=== PATIENT | male | born 1995 | race Caucasian/White ===

== ENCOUNTER 2020-01-19 03:59 | Emergency (ER) | payer MEDICAID, SELFPAY ==
[2020-01-19 04:03] VITALS: BP 141/91; PULSE 76; RESP 16; TEMP 36.7; O2SAT 100; BMI 22.1
--- NOTE | 2020-01-19 04:33 | CTR_ITS ---
PROCEDURE INFORMATION: Exam: CT Head Without Contrast Exam date and time: 01/19/2020 5:05 AM Age: 24 years old Clinical indication: Numbness / parasthesia; Patient HX: Numbness to left arm and leg after taking meth per patient; Additional info: Weakness TECHNIQUE: Imaging protocol: Computed tomography of the head without contrast. Radiation optimization: All CT scans at this facility use at least one of these dose optimization techniques: automated exposure control; mA and/or kV adjustment per patient size (includes targeted exams where dose is matched to clinical indication); or iterative reconstruction. COMPARISON: CT head wo con* [id number] 05/28/2018 1:35 PM RADIATION DOSE METRICS: Total DLP (mGy-cm): 774.54 FINDINGS: Brain: Normal. No hemorrhage. Unremarkable white matter. No mass effect. Cerebral ventricles: No ventriculomegaly. Bones/joints: Unremarkable. No acute fracture. Paranasal sinuses: There is mild mucosal thickening seen within the ethmoidal sinuses. Mastoid air cells: Visualized mastoid air cells are well aerated. Soft tissues: Unremarkable. CT/CT head wo con* [id number] IMPRESSION: There are no acute intracranial findings. Radiation Dose CTDIVOL = (mGy): DLP = 774.54 (mGy-cm)
--- NOTE | 2020-01-19 04:34 | ECG_ITS ---
[facility] Test Date: 2020-01-19 Pat Name: Mario Alberto Figueroa Jr Department: Room: Gender: Male Physician Neonatology: : 1995 Requested By: Jt Romo Order Number: [id number] Brent MD: Darshan Evangelista M.D. Measurements Intervals [place] Rate: 82 P: 64 [place]: 162 QRS: 51 QRSD: 121 T: 42 QT: 364 QTc: 427 Interpretive Statements SINUS RHYTHM WITH SINUS ARRHYTHMIA INDETERMINATE AXIS RIGHT BUNDLE BRANCH BLOCK [120+ ms QRS DURATION, UPRIGHT V1, 40+ ms S IN I/aVL/V4/V5/V6] No previous ECG available for comparison Electronically Signed On 01-19-2020 19:45:47 CDT by Darshan Evangelista M.D. [email or web address] medical centerNEXTA [email or web address] hard[facility].Myoonet/store/NU/[id number] f
[2020-01-19 04:40] VITALS: BP 144/86; PULSE 76; RESP 18; O2SAT 100
[2020-01-19 04:40] LABS: Basophils # 0.1 10^3/uL (0.0-0.1); Basophils % 0.9 %; Eosinophils # 0.3 10^3/uL (0.0-0.8); Eosinophils % 3.3 %; Hematocrit 43.4 % (42.0-52.0); Hemoglobin 14.8 g/dL (11.7-16.6); Lymphocytes # 2.5 10^3/uL (0.8-4.8); Lymphocytes % 25.9 %; Mean Corpuscular HGB Conc 34.1 g/dL (30.0-36.0); Mean Corpuscular Hemoglobin 29.5 pg (28.0-34.0); Mean Corpuscular Volume 86.5 fL (80-94); Mean Platelet Volume 9.7 fL (7.4-10.4); Monocytes # 0.6 10^3/uL (0.2-0.9); Monocytes % 6.2 %; Neutrophils % 63.4 %; Nucleated Red Blood Cells % 0 %; Platelet Count 344 10^3/cmm (130-400); Red Blood Count 5.02 10^6/uL (4.1-5.3); Red Cell Distribution Width 12.8 % (12.1-15.1); White Blood Count 9.6 10^3/uL (4.0-10.0)
[2020-01-19] MEDS: sodium chloride 0.9% 1,000 ML 999 ML IV (04:45)
[2020-01-19 05:01] LABS: Alanine Aminotransferase 24 U/L (0-41); Albumin Level 4.9 g/dL (3.5-5.2); Alkaline Phosphatase 90 IU/L (40-130); Blood Urea Nitrogen 12 mg/dL (6-20); Calcium 10.4 mg/dL (8.5-10.5); Carbon Dioxide 25 mmol/L (22-29); Chloride 98 mmol/L (98-107); Creatine Phosphokinase 209 U/L (39-308); Globulin 2.5 g/dL (1.3-4.6); Glomerular Filtration Rate 120.9 mL/min (90-130); Glucose 106 mg/dL (65-115); Osmolality Calculated 282 mOsm/kg (285-295); Sodium 136 mmol/L (136-145); Total Bilirubin 0.4 mg/dL (0.15-1.2); Total Protein 7.4 g/dL (6.6-8.7)
[2020-01-19 05:04] LABS: Add Urine Microscopic? NO
--- NOTE | 2020-01-19 05:07 | ED_ITS ---
HPI - Neuro Symptoms/Deficit General: Chief Complaint: Neuro Symptoms/Deficit Stated Complaint: L SIDED NUMBNESS AFTER USING METH Time Seen by Provider: 01/19/20 04:02 History of Present Illness: HPI Narrative: 24-year-old male. Previously healthy. Says that he is homeless, and did some meth yesterday off the street. He smoked it. He says a couple of hours prior to arrival he began to develop numbness and weakness to the left side of his body. He has a mild headache. No visual changes. The numbness exists in his face left arm and left leg. So does the weakness. His right side is not affected. He also asks for food and water. His other ingestion. He denies fever recent illness otherwise. He says he has had some chest pressure as well. No speech problems. No language problems Onset (ago): hour(s) Location: left face, left arm and left leg History of same: No Severity: moderate Quality: weak, numb and tingling Relieving factors: none Exacerbating factors: none Context: gradual onset On Anticoagulants: No Associated symptoms: Reports chest pain and headache(s); Deny cough, nausea, vertigo or vomiting Review of Systems Const: Denies: fever(s) or chills Eyes: Denies: change in vision or blurry vision ENMT: Denies: odynophagia, swelling of lips/tongue, bleeding gums, dental pain, change in hearing, epistaxis, post nasal drip or sinus pain Card: Reports: chest pain Resp: Denies: dyspnea, productive cough, non-productive cough or wheezing GI: Denies: abdominal pain, nausea, vomiting, rectal pain, hematochezia or melena : Denies: difficulty urinating or hematuria Musc: Denies: neck pain or back pain Skin/Breast: Denies: rash, pruritus or erythema Neuro: Reports: headache(s) and dizziness; Denies: vertigo Psych: Denies: anxiety, visual hallucinations or auditory hallucinations Physical Exam Const: GENERAL APPEARANCE: well developed ORIENTATION/CONSCIOUSNESS: Yes oriented to person, Yes oriented to place and Yes oriented to time HENMT: COMMON NORMALS: normocephalic, external ears normal and Normal external nose present HEAD & SCALP: normocephalic FACE & SINUS: normal facial exam NOSE: Normal external nose present and No nasal discharge present EXTERNAL EAR: Yes external ears normal THROAT: no peritonsillar mass Eye: COMMON NORMALS: EOMs intact bilaterally and conjunctivae normal EYELID: eyelids normal CONJUNCTIVA: Yes conjunctivae normal Neck/C-Spine: GENERAL: No tracheal deviation Chest: COMMONS NORMALS: normal inspection of the chest CHEST: No tenderness Resp: COMMON NORMALS: clear to auscultation bilaterally EFFORT & INSPECTION: No tachypneic, No respiratory distress, No retractions, No uses accessory muscles and No tracheal deviation AUSCULTATION: clear to auscultation bilaterally, no rhonchi, no wheezes and lung sounds not diminished Cardio: COMMON NORMALS: regular rate and regular rhythm RATE: regular rate RHYTHM: regular rhythm HEART SOUNDS: no murmurs PERIPHERAL PULSES: radial pulses present GI: INSPECTION: No abdominal distension AUSCULTATION: No Hyperactive bowel sounds present and No Hypoactive bowel sounds present PALPATION: No Guarding due to palpation present (GI) and No Rigid due to palpation PERCUSSION: no dullness to percussion and no tympanic to percussion Neuro: SENSORIUM/ORIENTATION: Yes oriented to person, Yes oriented to place and Yes oriented to time SPEECH: speech normal GAIT: Yes Unable to assess gait SENSORY EXAM: Yes extremities (Subjective decreased sensation on the left upper and lower extremity) MOTOR EXAM: Pronator motor function present (Hands and pronator drift on the left. Seems to improve and worsen) Psych: COMMON NORMALS: mental status grossly normal Skin: COMMON NORMALS: no rashes or lesions noted GENERAL SKIN EXAM: no rashes or lesions noted Course Vital Signs: Vital signs: Vital Signs Temperature 98.0 F 01/19/20 04:03 Pulse Rate 75 01/19/20 06:22 Respiratory Rate 18 01/19/20 06:22 Blood Pressure 114/72 01/19/20 06:22 Pulse Oximetry 95 01/19/20 06:22 MDM - Neuro Symptoms/Deficit MDM Narrative: Medical decision making narrative: 24-year-old male who smoked meth yesterday afternoon, and has complained of several hours of weakness and numbness to the left side of his body. He has been witnessed moving his left side in the ER, especially in CT. His laboratory is otherwise benign. His head CT is negative. He is afebrile. His vitals are good. Lab Data: Labs: Lab Results 01/19/20 01/19/20 01/19/20 Range/Units 04:16 04:16 04:16 WBC 9.6 (4.0-10.0) 10^3/ uL RBC 5.02 (4.1-5.3) 10^6/u L Hgb 14.8 (11.7-16.6) g/dL Hct 43.4 (42.0-52.0) % MCV 86.5 (80-94) fL MCH 29.5 (28.0-34.0) pg MCHC 34.1 (30.0-36.0) g/dL RDW 12.8 (12.1-15.1) % Plt Count 344 (130-400) 10^3/c mm MPV 9.7 (7.4-10.4) fL Neut % (Auto) 63.4 % Lymph % (Auto) 25.9 % [place] % (Auto) 6.2 % Eos % (Auto) 3.3 % Baso % (Auto) 0.9 % Neut # (Auto) 6.10 (1.8-7.7) 10^3/u L Lymph # (Auto) 2.5 (0.8-4.8) 10^3/u L [place] # (Auto) 0.6 (0.2-0.9) 10^3/u L Eos # (Auto) 0.3 (0.0-0.8) 10^3/u L Baso # (Auto) 0.1 (0.0-0.1) 10^3/u L Nucleated RBC % (a uto) 0 % Nucleated RBCs # 0.0 /100WBC PT Cancelled INR Cancelled APTT Cancelled Sodium 136 (136-145) mmol/L Potassium 4.1 (3.5-5.1) mmol/L Chloride 98 (98-107) mmol/L Carbon Dioxide 25 (22-29) mmol/L Anion Gap 17.1 (5-19) BUN 12 (6-20) mg/dL Creatinine 0.8 (0.7-1.2) mg/dL GFR Calculation 120.9 (90-130) mL/min Glucose 106 (65-115) mg/dL Calculated Osmolal ity 282 L (285-295) mOsm/k g Calcium 10.4 (8.5-10.5) mg/dL Magnesium 2.0 (1.7-2.3) mg/dL Total Bilirubin 0.4 (0.15-1.2) mg/dL AST 28 (0-40) U/L ALT 24 (0-41) U/L Alkaline Phosphata se 90 (40-130) IU/L Creatine Kinase 209 (39-308) U/L Total Protein 7.4 (6.6-8.7) g/dL Albumin 4.9 (3.5-5.2) g/dL Globulin 2.5 (1.3-4.6) g/dL Urine Color (Yellow) Urine Appearance (CLEAR) Urine pH (5-7) Ur Specific Gravit y (1.005-1.030) Urine Protein (Negative) Urine Glucose (UA) (Normal) Urine Ketones (Negative) Urine Blood (Negative) Urine Nitrate (Negative) Urine Bilirubin (Negative) Prot Sulfosalicyli c Acd (Negative) Urine Urobilinogen (Negative) mg/dL Ur Leukocyte Yudith ase (Negative) Urine Opiates Scre en (Negative) ng/mL Ur Barbiturates Sc reen (Negative) ng/mL Ur Phencyclidine S crn (Negative) ng/mL Ur Amphetamines Sc reen (Negative) ng/mL U Benzodiazepines Scrn (Negative) ng/mL Urine Cocaine Scre en (Negative) ng/mL U Marijuana (THC) Screen (Negative) ng/mL Ethyl Alcohol < 10 (0-10) mg/dL 01/19/20 01/19/20 01/19/20 Range/Units 04:16 04:16 05:00 WBC (4.0-10.0) 10^3/ uL RBC (4.1-5.3) 10^6/u L Hgb (11.7-16.6) g/dL Hct (42.0-52.0) % MCV (80-94) fL MCH (28.0-34.0) pg MCHC (30.0-36.0) g/dL RDW (12.1-15.1) % Plt Count (130-400) 10^3/c mm MPV (7.4-10.4) fL Neut % (Auto) % Lymph % (Auto) % [place] % (Auto) % Eos % (Auto) % Baso % (Auto) % Neut # (Auto) (1.8-7.7) 10^3/u L Lymph # (Auto) (0.8-4.8) 10^3/u L [place] # (Auto) (0.2-0.9) 10^3/u L Eos # (Auto) (0.0-0.8) 10^3/u L Baso # (Auto) (0.0-0.1) 10^3/u L Nucleated RBC % (a uto) % Nucleated RBCs # /100WBC PT 13.10 INR 0.97 APTT 31.1 Sodium (136-145) mmol/L Potassium (3.5-5.1) mmol/L Chloride (98-107) mmol/L Carbon Dioxide (22-29) mmol/L Anion Gap (5-19) BUN (6-20) mg/dL Creatinine (0.7-1.2) mg/dL GFR Calculation (90-130) mL/min Glucose (65-115) mg/dL Calculated Osmolal ity (285-295) mOsm/k g Calcium (8.5-10.5) mg/dL Magnesium (1.7-2.3) mg/dL Total Bilirubin (0.15-1.2) mg/dL AST (0-40) U/L ALT (0-41) U/L Alkaline Phosphata se (40-130) IU/L Creatine Kinase (39-308) U/L Total Protein (6.6-8.7) g/dL Albumin (3.5-5.2) g/dL Globulin (1.3-4.6) g/dL Urine Color Yellow (Yellow) Urine Appearance Clear (CLEAR) Urine pH 8 H (5-7) Ur Specific Gravit y 1.005 (1.005-1.030) Urine Protein Neg (Negative) Urine Glucose (UA) Norm (Normal) Urine Ketones Negative (Negative) Urine Blood Neg (Negative) Urine Nitrate Negative (Negative) Urine Bilirubin Neg (Negative) Prot Sulfosalicyli c Acd Negative (Negative) Urine Urobilinogen Norm (Negative) mg/dL Ur Leukocyte Yudith ase Negative (Negative) Urine Opiates Scre en Negative (Negative) ng/mL Ur Barbiturates Sc reen Negative (Negative) ng/mL Ur Phencyclidine S crn Negative (Negative) ng/mL Ur Amphetamines Sc reen Positive H (Negative) ng/mL U Benzodiazepines Scrn Negative (Negative) ng/mL Urine Cocaine Scre en Negative (Negative) ng/mL U Marijuana (THC) Screen Negative (Negative) ng/mL Ethyl Alcohol (0-10) mg/dL Discharge Plan Discharge Patient Disposition: Home Clinical Impression: Weakness, Substance abuse Condition: Stable Prescriptions: No Action No Known Home Medications RF: 0 Discharge Orders: Discharge Order (Routine); Ordered 01/19/20 Ordered By: Jt Del Castillo Discharge Diet: Advance as tolerated Discharge Activity: Increase activity as tolerated Patient Instructions: Methamphetamine Abuse (ED), Weakness (ED) Activity Restrictions/Additional Instructions: Abstain from substance abuse. Drink plenty of fluids. Return for worsening symptoms such as headache, mental status changes, worsening weakness, fever, other concerning symptoms Discharge Date/Time: 01/19/20 06:37 Coding Level of Care Code ED Residential Concierge for Farideh Fwd Exam Comprehensive
[2020-01-19 05:09] LABS: Alcohol Level < 10 mg/dL (0-10); Anion Gap 17.1 (5-19); Aspartate Amino Transferase 28 U/L (0-40); Potassium 4.1 mmol/L (3.5-5.1)
[2020-01-19 05:18] LABS: Amphetamines Screen Urine Positive (Negative); Barbiturates Screen Urine Negative (Negative); Benzodiazepines Screen Urine Negative (Negative); Cocaine Screen Urine Negative (Negative); Opiate Screen Urine Negative (Negative); PCP Screen Urine Negative (Negative); THC Screen Urine Negative (Negative)
[2020-01-19 05:30] LABS: INR 0.97 (0.8-1.2)
[2020-01-19 05:31] LABS: Partial Thromboplastin Time 31.1 SECONDS (23.9-36.7)
[2020-01-19 05:31] LABS: Bilirubin Urine Neg (Negative); Blood Urine Neg (Negative); Glucose Urine UA Norm (Normal); Ketones Urine Negative (Negative); Leukocyte Esterase Urine Negative (Negative); Nitrate Urine Negative (Negative); Protein Urine Neg (Negative); Specific Gravity, Urine 1.005 (1.005-1.030); Sulfosalicylic Acid Urine Negative (Negative); Urine Appearance Clear (CLEAR); Urine Color Yellow (Yellow); Urobilinogen Urine Norm (Negative); pH Urine 8 (5-7)
[2020-01-19 06:22] VITALS: BP 114/72; PULSE 75; RESP 18; O2SAT 95
== END 2020-01-19 06:37 | disposition home or self-care (01) ==
PROVIDERS: Emergency Provider Emergency Medicine
DX: R53.1 Weakness (principal); F15.10 Other stimulant abuse, uncomplicated
CPT/HCPCS: 12345; 70450; 80053; 80306; 80307; 81003; 82550; 83735; 85025; 85610; 85730; 93005; 96360; 99283; J7030

== ENCOUNTER 2020-01-24 04:38 | Emergency (ER) | payer MEDICAID, SELFPAY ==
--- NOTE | 2020-01-24 04:41 | XRR_ITS ---
PROCEDURE INFORMATION: Exam: XR Chest, 1 View Exam date and time: 01/24/2020 4:49 AM Age: 24 years old Clinical indication: Shortness of breath; Additional info: SOB, chest pain x 2 hours TECHNIQUE: Imaging protocol: XR of the chest Views: 1 view. COMPARISON: CR Chest 2 views* [id number] 05/24/2018 8:54 PM FINDINGS: Lungs: Unremarkable. No consolidation. Pleural space: Unremarkable. No pleural effusion. No pneumothorax. Heart/Mediastinum: Unremarkable. No cardiomegaly. Bones/joints: Unremarkable. XR/XR chest 1V portable [id number] IMPRESSION: No acute findings.
--- NOTE | 2020-01-24 04:42 | ECG_ITS ---
[facility] Test Date: 2020-01-24 Pat Name: Mario Alberto Figueroa Jr Department: Room: Gender: Male Hydramatic Specialist: : 1995 Requested By: Markus Tirado Order Number: [id number] Brent MD: Darshan Evangelista M.D. Measurements Intervals [place] Rate: 84 P: 72 [place]: 143 QRS: 16 QRSD: 102 T: 42 QT: 359 QTc: 427 Interpretive Statements SINUS RHYTHM WITH SINUS ARRHYTHMIA Compared to ECG 01/19/2020 04:17:00 Indeterminate axis no longer present Right bundle-branch block no longer present Electronically Signed On 01-24-2020 20:28:18 CDT by Darshan Evangelista M.D. [email or web address]/[id number] f
--- NOTE | 2020-01-24 04:43 | W.ED.CHESTPA ---
HPI - Chest Pain General: Chief Complaint: Chest Pain Stated Complaint: chest pain Time Seen by Provider: 01/24/20 04:41 Source: patient and EMS Mode of arrival: EMS Limitations: no limitations History of Present Illness: HPI narrative: Patient is a 24-year-old male is here by EMS for chest pain. He states his pain started overnight and has been a sharp pain in the center of his chest. Denies any worsening or improving factors. Denies any vomiting or diarrhea. He has had no recent long trips or surgeries. MD complaint: chest pain Onset (ago): hour(s) Timing of current episode: constant Associated symptoms: Deny abdominal pain, dyspnea, fever(s), nausea or vomiting Review of Systems Const: Denies: fever(s), chills, body aches or change in appetite Eyes: Denies: blurry vision or eye discomfort ENMT: Denies: throat pain or dental pain Card: Reports: chest pain Resp: Denies: dyspnea GI: Denies: abdominal pain, nausea, vomiting or diarrhea : Denies: dysuria Musc: Denies: neck pain or back pain Skin/Breast: Denies: rash Neuro: Denies: headache(s) Psych: Denies: depression Gianfranco/Lymph: Denies: easy bruising All/Imm: Denies: urticaria Physical Exam Const: COMMON NORMALS: no acute distress, patient oriented x3 and healthy appearing HENMT: COMMON NORMALS: normocephalic and atraumatic HEAD & SCALP: normocephalic and atraumatic Eye: COMMON NORMALS: Equal, round and reactive pupils present and EOMs intact bilaterally PUPIL: Yes Equal, round and reactive pupils present Neck/C-Spine: COMMON NORMALS: full ROM and supple Chest: COMMONS NORMALS: normal inspection of the chest and normal palpation of entire chest wall Resp: COMMON NORMALS: normal respiratory effort, No retractions, No use of accessory muscles and clear to auscultation bilaterally AUSCULTATION: clear to auscultation bilaterally Cardio: COMMON NORMALS: regular rate, regular rhythm and No murmurs present (Cardio) RATE: regular rate RHYTHM: regular rhythm GI: COMMON NORMALS: Normal to inspection, nondistended, normoactive bowel sounds present, Soft to palpation, non-tender and no masses PALPATION: Yes Soft to palpation Extremity: COMMON NORMALS: normal to inspection and full ROM Neuro: COMMON NORMALS: patient oriented x3, moves all extremities and no focal motor deficits Psych: COMMON NORMALS: mental status grossly normal, Normal thought process present and cooperative THOUGHT PROCESS: Normal thought process present Skin: COMMON NORMALS: no rashes or lesions noted and no wounds GENERAL SKIN EXAM: no rashes or lesions noted Course Vital Signs: Vital signs: Vital Signs Temperature 98.4 F 01/24/20 04:47 Pulse Rate 87 01/24/20 05:16 Respiratory Rate 20 H 01/24/20 05:16 Blood Pressure 127/74 01/24/20 05:16 Pulse Oximetry 100 01/24/20 05:16 MDM - Chest Pain MDM Narrative: Medical decision making narrative: Patient presents here with chest pain that is atypical in nature. Patient's EKG along with troponin are negative. Patient is well-appearing here and has no signs of acute coronary syndrome. Patient has no signs of pulmonary embolism. Patient is stable for discharge and is to follow-up with PCP and return if worsening. Lab Data: Labs: Lab Results 01/24/20 01/24/20 01/24/20 Range/Units 04:58 04:58 04:58 WBC 7.9 (4.0-10.0) 10^3/ uL RBC 4.81 (4.1-5.3) 10^6/u L Hgb 14.2 (11.7-16.6) g/dL Hct 42.0 (42.0-52.0) % MCV 87.3 (80-94) fL MCH 29.5 (28.0-34.0) pg MCHC 33.8 (30.0-36.0) g/dL RDW 12.8 (12.1-15.1) % Plt Count 257 (130-400) 10^3/c mm MPV 8.9 (7.4-10.4) fL Neut % (Auto) 60.4 % Lymph % (Auto) 29.4 % [place] % (Auto) 7.5 % Eos % (Auto) 1.6 % Baso % (Auto) 0.6 % Neut # (Auto) 4.77 (1.8-7.7) 10^3/u L Lymph # (Auto) 2.3 (0.8-4.8) 10^3/u L [place] # (Auto) 0.6 (0.2-0.9) 10^3/u L Eos # (Auto) 0.1 (0.0-0.8) 10^3/u L Baso # (Auto) 0.1 (0.0-0.1) 10^3/u L Nucleated RBC % (a uto) 0 % Nucleated RBCs # 0.0 /100WBC Sodium 139 (136-145) mmol/L Potassium 3.4 L (3.5-5.1) mmol/L Chloride 102 (98-107) mmol/L Carbon Dioxide 24 (22-29) mmol/L Anion Gap 16.4 (5-19) BUN 11 (6-20) mg/dL Creatinine 0.9 (0.7-1.2) mg/dL GFR Calculation 105.5 (90-130) mL/min Glucose 106 (65-115) mg/dL Calculated Osmolal ity 288 (285-295) mOsm/k g Calcium 10.0 (8.5-10.5) mg/dL Troponin T Baselin e 6 (0-15) ng/L Imaging Data^: CXR: Attestation: I personally reviewed and interpreted this imaging study as follows: My impression: no acute abnormality EKG Data^: EKG 1: EKG interpretation date: 01/24/20 EKG interpretation time: 04:46 Interpretation: nsr hr [address] or t wave abnormalities qrs 102 qtc 401 Discharge Plan Discharge Patient Disposition: Home Clinical Impression: Chest pain Qualifiers: Chest pain type: unspecified Qualified Code(s): R07.9 - Chest pain, unspecified Condition: Stable Prescriptions: No Action No Known Home Medications RF: 0 Discharge Orders: Discharge Order (Routine); Ordered 01/24/20 Ordered By: Markus Tirado Discharge Diet: Advance as tolerated Discharge Activity: Resume usual activity Patient Instructions: Chest Pain (ED) Coding Level of Care Code ED Dining Car Server for Chg Fwd Exam Comprehensive
[2020-01-24 04:47] VITALS: BP 131/82; PULSE 81; RESP 16; TEMP 36.9; O2SAT 100; BMI 22.1
[2020-01-24 05:06] LABS: Basophils # 0.1 10^3/uL (0.0-0.1); Basophils % 0.6 %; Eosinophils # 0.1 10^3/uL (0.0-0.8); Eosinophils % 1.6 %; Hemoglobin 14.2 g/dL (11.7-16.6); Lymphocytes # 2.3 10^3/uL (0.8-4.8); Lymphocytes % 29.4 %; Mean Corpuscular HGB Conc 33.8 g/dL (30.0-36.0); Mean Corpuscular Hemoglobin 29.5 pg (28.0-34.0); Mean Corpuscular Volume 87.3 fL (80-94); Mean Platelet Volume 8.9 fL (7.4-10.4); Monocytes # 0.6 10^3/uL (0.2-0.9); Monocytes % 7.5 %; Neutrophils # 4.77 10^3/uL (1.8-7.7); Neutrophils % 60.4 %; Nucleated Red Blood Cells % 0 %; Platelet Count 257 10^3/cmm (130-400); Red Blood Count 4.81 10^6/uL (4.1-5.3); Red Cell Distribution Width 12.8 % (12.1-15.1); White Blood Count 7.9 10^3/uL (4.0-10.0)
[2020-01-24] MEDS: ondansetron 2 mg/ML SDV 2 mL 4 MG IVP (05:14)
[2020-01-24] MEDS: morphine 4 mg/mL SDV 1 mL IVP (05:14)
[2020-01-24 05:16] VITALS: BP 127/74; PULSE 87; RESP 20; O2SAT 100
[2020-01-24 05:31] LABS: Anion Gap 16.4 (5-19); Blood Urea Nitrogen 11 mg/dL (6-20); Carbon Dioxide 24 mmol/L (22-29); Chloride 102 mmol/L (98-107); Glomerular Filtration Rate 105.5 mL/min (90-130); Glucose 106 mg/dL (65-115); Osmolality Calculated 288 mOsm/kg (285-295); Potassium 3.4 mmol/L (3.5-5.1); Sodium 139 mmol/L (136-145)
[2020-01-24 05:33] LABS: Troponin(5th) Baseline 6 ng/L (0-15)
[2020-01-24] MEDS: LORazepam 2 mg/mL INJ 1 mL 1 MG IVP (05:41)
[2020-01-24 06:25] VITALS: BP 124/71; PULSE 80; RESP 18; O2SAT 99
[2020-01-24 06:52] VITALS: BP 123/83; PULSE 76; RESP 16; TEMP 36.9; O2SAT 100
--- NOTE | 2020-01-24 06:53 | PC.NURSE ---
Received report assumed care, no acute distress. Offered food and drink. Waiting for Ride. Continue to monitor
== END 2020-01-24 07:31 | disposition home or self-care (01) ==
PROVIDERS: Emergency Provider Emergency Medicine
DX: R07.9 Chest pain, unspecified (principal)
CPT/HCPCS: 12345; 71045; 80048; 84484; 85025; 93005; 96374; 96375; 99283; 99284; J2060; J2270; J2405

== ENCOUNTER 2020-03-12 02:27 | Inpatient (IN) | payer MEDICAID, SELFPAY ==
[2020-03-12] VITALS (12 sets, daily range): BP systolic 116–155; BP diastolic 67–86; PULSE 67–101; RESP 13–20; TEMP 36.4–36.9; O2SAT 93–100; BMI 22.8
--- NOTE | 2020-03-12 02:28 | ECG_ITS ---
[facility] Test Date: 2020-03-12 Pat Name: Mario Alberto Figueroa Jr Department: Room: 155 Gender: Male Digital Sales Representative: : 1995 Requested By: Iram oHlley Order Number: [id number] MD: Linnette Casillas M.D. Measurements Intervals [place] Rate: 61 P: 70 CT: 152 QRS: 74 QRSD: 97 T: 52 QT: 355 QTc: 359 Interpretive Statements SINUS RHYTHM POSSIBLE RIGHT VENTRICULAR CONDUCTION DELAY [RSR (QR) IN V1/V2] WARNING: DATA QUALITY MAY AFFECT INTERPRETATION Compared to ECG 01/24/2020 04:46:10 Sinus arrhythmia no longer present Electronically Signed On 03-12-2020 21:23:49 ISO COORDINATOR by Linnette Casillas M.D. [email or web address] [email or web address] memorial [email or web address].[id number]
--- NOTE | 2020-03-12 02:30 | W.ED.PSYCH ---
HPI - Psych General: Chief Complaint: Psychiatric Symptoms Stated Complaint: si Time Seen by Provider: 03/12/20 02:28 Source: patient Mode of arrival: ambulatory Limitations: no limitations History of Present Illness: HPI Narrative: Mario Alberto is a nice 24-year-old male who comes in complaining of suicidal ideation. Patient states that he lost his parents and his twin brother recently and . He states he just cannot keep himself together after this. Patient states he has a plan in which he will jump off the [place] headfirst to kill himself. He states he had to be admitted before for suicidal ideation. He denies any ingestions or any other attempts recently. Patient is a voluntary admission at this time. Patient denies any other complaints at this time. MD complaint: suicidal ideation Onset (ago): day(s) Duration: constant History of same: Yes Relieving factors: none Exacerbating factors: none Context: significant life stressor Associated psychiatric symptoms: depression and suicidal ideation Associated symptoms: Reports depression Treatments prior to arrival: none If self harm: admits thoughts of self harm and has plan Review of Systems Const: Denies: fever(s), chills, body aches, fatigue, malaise or diaphoresis Eyes: Denies: change in vision, blurry vision, photophobia, eye discomfort, eye discharge, eye redness or yellow eyes ENMT: Denies: hoarseness, swelling of lips/tongue, ear discharge, change in hearing or nasal discharge Card: Denies: chest pain, palpitations, irregular heart rhythm, edema, lightheadedness, syncope, pre-syncope, dyspnea on exertion or orthopnea Resp: Denies: dyspnea, productive cough, non-productive cough, wheezing, hemoptysis or chest congestion GI: Denies: abdominal pain, nausea, vomiting, hematemesis, coffee ground emesis, heartburn, diarrhea, constipation, GI cramping, hematochezia or melena : Denies: flank pain, dysuria, urinary frequency, urinary urgency or hematuria Musc: Denies: neck pain, back pain, extremity pain, extremity swelling, joint pain, joint swelling, joint redness, joint warmth or joint stiffness Skin/Breast: Denies: rash, pruritus, erythema, skin pain or skin tenderness Neuro: Denies: headache(s), numbness in extremities, weakness in extremities, sensory changes, lack of coordination, difficulty walking, dizziness, vertigo, confusion, Slurred speech present or seizure-like activity Psych: Reports: depression Gianfranco/Lymph: Denies: easy bruising, easy bleeding, petechiae, purpura or enlarged lymph nodes All/Imm: Denies: urticaria, throat swelling, tongue swelling, facial swelling or acute wheezing PFSH ED PFSH: Medical History (Updated 03/12/20 @ 05:06 by Stuart Wilcox MD) Alcohol abuse Marijuana abuse Polysubstance abuse Surgical History (Updated 03/12/20 @ 05:01 by Stuart Wilcox MD) No pertinent past surgical history Family History (Updated 03/12/20 @ 05:02 by Stuart Wilcox MD) Denies family history of Cancer Social History (Updated 03/12/20 @ 05:02 by Stuart Wilcox MD) Smoking and tobacco status: current every day smoker cigarettes Alcohol intake: current Alcohol intake frequency: few times a week Substance/Drug Use: current Substance/Drug use type: Methamphetamine Physical Exam Const: COMMON NORMALS: no acute distress, patient oriented x3, no limitations and alert GENERAL APPEARANCE: cooperative HENMT: COMMON NORMALS: normocephalic, atraumatic, external ears normal, EAC's normal and Normal external nose present HEAD & SCALP: normal to inspection, normocephalic and atraumatic FACE & SINUS: normal facial exam and face symmetric NOSE: Normal external nose present and Normal nares present EXTERNAL EAR: Yes external ears normal EXTERNAL AUDITORY CANAL: EAC's normal MOUTH: lip normal; no drooling and no trismus TEETH & GINGIVA: Yes fair dentition Eye: COMMON NORMALS: Equal, round and reactive pupils present and conjunctivae normal GENERAL EYE: appearance normal, both eyes and all related structures ALIGNMENT: Yes alignment normal PERIORBITAL: periorbital findings normal EYELID: eyelids normal CONJUNCTIVA: Yes conjunctivae normal SCLERA: sclerae normal PUPIL: Yes Equal, round and reactive pupils present Neck/C-Spine: COMMON NORMALS: full ROM, no lymphadenopathy, supple, no meningeal signs and no JVD GENERAL: Yes normal visual inspection and Yes trachea midline Chest: COMMONS NORMALS: normal inspection of the chest and normal palpation of entire chest wall Resp: COMMON NORMALS: normal respiratory effort, No retractions, No use of accessory muscles and clear to auscultation bilaterally EFFORT & INSPECTION: Yes able to speak in complete sentences and Yes symmetric chest movement AUSCULTATION: clear to auscultation bilaterally, no crackles, no rales, no rhonchi and no wheezes Cardio: COMMON NORMALS: no JVD, regular rate, regular rhythm, S1 normal heart sound present and S2 normal heart sound present RATE: regular rate RHYTHM: regular rhythm HEART SOUNDS: S1 normal heart sound present, S2 normal heart sound present, no click, no gallops, no murmurs and no rubs GI: COMMON NORMALS: Soft to palpation and No hepatosplenomegaly present PALPATION: Yes Soft to palpation, No Tenderness to palpation present (GI), No Guarding due to palpation present (GI), No Rigid due to palpation, Yes No hepatosplenomegaly present, No Hernia present, No Palpable mass present and No Pulsatile mass present : COMMON NORMALS: Yes no CVA tenderness BLADDER/KIDNEY EXAM: Yes no CVA tenderness Back/Pelvis: COMMON NORMALS: no CVA tenderness, thoracic and lumbar spine normal to inspection, no thoracic nor lumbar tenderness and thoraco-lumbar ROM normal Extremity: COMMON NORMALS: normal to inspection, full ROM, capillary refill normal, no joint enlargement, no clubbing, cyanosis or edema and no calf tenderness Neuro: COMMON NORMALS: patient oriented x3, CN's II-XII intact bilaterally, moves all extremities, no focal motor deficits and no sensory deficits noted SENSORIUM/ORIENTATION: Yes alert MENINGEAL SIGNS: Yes no meningeal signs SPEECH: speech normal Psych: COMMON NORMALS: mental status grossly normal, Normal thought process present, cooperative, normal affect, speech normal and activity/motor behavior normal SPEECH: Yes normal speech THOUGHT PROCESS: Normal thought process present Skin: COMMON NORMALS: no rashes or lesions noted, turgor normal, no jaundice, no petechiae and no mottling GENERAL SKIN EXAM: no rashes or lesions noted and turgor normal MDM - Psych MDM Narrative: Medical decision making narrative: The case was reviewed in its entirety with Dr. Steele. He agrees to admission to the neuropsychiatric unit. Patient still adamantly denies any ingestions or attempts at recent self-harm. He denies any other complaints or concerns. Patient has been cooperative here. Currently he wants to come in. An affidavit been placed on the patient's chart but as he is voluntary at this time we will not put him under involuntary hold. Lab Data: Attestation: I reviewed the patient's lab results. EKG Data^: EKG 1: Attestation: I personally reviewed and interpreted this EKG as follows: EKG interpretation date: 03/12/20 EKG interpretation time: 02:47 Interpretation: Normal sinus rhythm at 61 beats a minute, no blocks, normal intervals, normal QTC. Discharge Plan Discharge Patient Disposition: Admitted As Inpatient Admit Provider: Stuart Wilcox Clinical Impression: Suicidal ideation Condition: Stable Coding Level of Care Code ED Legal Support Assistant for Chg Fwd Exam Comprehensive
[2020-03-12 03:12] LABS: Amphetamines Screen Urine Negative (Negative); Barbiturates Screen Urine Negative (Negative); Benzodiazepines Screen Urine Negative (Negative); Cocaine Screen Urine Negative (Negative); Opiate Screen Urine Negative (Negative); PCP Screen Urine Negative (Negative); THC Screen Urine Positive (Negative)
[2020-03-12 03:27] LABS: Alanine Aminotransferase 20 U/L (0-41); Albumin Level 4.1 g/dL (3.5-5.2); Alkaline Phosphatase 100 IU/L (40-130); Anion Gap 11.4 (5-19); Aspartate Amino Transferase 13 U/L (0-40); Blood Urea Nitrogen 6 mg/dL (6-20); Calcium 9.4 mg/dL (8.5-10.5); Carbon Dioxide 33 mmol/L (22-29); Chloride 100 mmol/L (98-107); Globulin 2.6 g/dL (1.3-4.6); Glucose 121 mg/dL (65-115); Osmolality Calculated 289 mOsm/kg (285-295); Potassium 4.4 mmol/L (3.5-5.1); Sodium 140 mmol/L (136-145); Thyroid Stimulating Hormone 2.71 uIU/mL (0.27-4.20); Total Bilirubin 0.2 mg/dL (0.15-1.2); Total Protein 6.7 g/dL (6.6-8.7)
[2020-03-12 03:30] LABS: Acetaminophen < 5.0 ug/mL (10-30); Alcohol Level < 10 mg/dL (0-10); Salicylate < 0.3 mg/dL (3-10)
--- NOTE | 2020-03-12 03:41 | PC.NURSE ---
1:1 sitter at bedside
[2020-03-12 03:55] LABS: Basophils # 0.1 10^3/uL (0.0-0.1); Basophils % 0.7 %; Eosinophils # 0.4 10^3/uL (0.0-0.8); Eosinophils % 2.9 %; Hematocrit 44.2 % (42.0-52.0); Hemoglobin 14.4 g/dL (11.7-16.6); Lymphocytes # 2.2 10^3/uL (0.8-4.8); Mean Corpuscular HGB Conc 32.6 g/dL (30.0-36.0); Mean Corpuscular Hemoglobin 28.6 pg (28.0-34.0); Mean Corpuscular Volume 87.9 fL (80-94); Mean Platelet Volume 9.2 fL (7.4-10.4); Monocytes # 1.1 10^3/uL (0.2-0.9); Monocytes % 8.7 %; Neutrophils # 8.46 10^3/uL (1.8-7.7); Neutrophils % 68.9 %; Nucleated Red Blood Cells % 0 %; Platelet Count 305 10^3/cmm (130-400); Red Blood Count 5.03 10^6/uL (4.1-5.3); Red Cell Distribution Width 11.9 % (12.1-15.1); White Blood Count 12.3 10^3/uL (4.0-10.0)
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
--- NOTE | 2020-03-12 04:56 | CTR_ITS ---
PROCEDURE INFORMATION: Exam: CT Neck With Contrast Exam date and time: 03/12/2020 5:50 AM Age: 24 years old Clinical indication: Patient HX: C/O of throat pain with dysphagia. ; Additional info: Right peritonsillar swelling TECHNIQUE: Imaging protocol: Computed tomography images of the neck with intravenous contrast. Radiation optimization: All CT scans at this facility use at least one of these dose optimization techniques: automated exposure control; mA and/or kV adjustment per patient size (includes targeted exams where dose is matched to clinical indication); or iterative reconstruction. Contrast material: OMNI 300; Contrast volume: 95 ml; Contrast route: INTRAVENOUS (IV); COMPARISON: CT neck w con* [id number] 10/26/2018 8:50 PM RADIATION DOSE METRICS: Total DLP (mGy-cm): 649.57 FINDINGS: Paranasal sinuses: Mucosal thickening of ethmoid sinuses. Small mucous retention cyst maxillary sinuses bilaterally. Nasopharynx: Unremarkable. Oropharynx: Enlargement of the right tonsillar fossa. A bilobular low attenuating mildly peripherally enhancing mass at the right tonsil and right tonsillar fossa is suspicious for abscess measuring approximately 3.4 cm antral posterior by 2.4 cm transverse by 4.1 cm craniocaudal. Possible small areas at the upper and lower margin which could reflect loculated or possibly separate adjacent areas of abscess. Hypopharynx: Unremarkable. Larynx: Effacement of the right vallecula and right piriform sinus. Retropharyngeal space: Unremarkable. Submandibular/Parotid glands: Normal. Glands are normal in size. Thyroid: Normal. No enlarged or calcified nodules. Lymph nodes: Adjacent lymph node enlargement and numerous small mildly prominent cervical lymph nodes most prominent on the right. Largest near the right mandibular angle measures 2.0 cm. Trachea: Visualized trachea is unremarkable. Lungs: Unremarkable as visualized. Bones/joints: Unremarkable. No acute fracture. Soft tissues: See Oropharynx finding. CT/CT neck w con* [id number] IMPRESSION: 1. Right tonsillitis and right tonsillar abscess possibly multifocal or multilocular involvement. 2. Cervical adenopathy greatest on the right probably reactive. Radiation Dose CTDIVOL = (mGy): DLP = 649.57 (mGy-cm)
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
--- NOTE | 2020-03-12 05:15 | XR_ITS ---
WS: [id number] XR soft tissue neck [id number] REASON FOR EXAM: r/o epiglottitis FINDINGS: Mild straightening of the normal lordosis of the cervical spine. There is no compression deformity of the cervical vertebrae and no focal lesion is noted the odontoid is normal.. Cervical spine alignment is normal. Normal facet joints. Intervertebral disc spaces are well preserved. XR/XR soft tissue neck [id number] IMPRESSION: No significant abnormality identified.
[2020-03-12 06:02] LABS: Lactate (Lactic Acid level) 1.4 mmol/L (0.5-2.2)
[2020-03-12 06:03] LABS: C Reactive Protein 55.6 mg/L (0.0-4.9)
[2020-03-12] MEDS: iohexol 300 mg/mL 100 mL Btl IV (06:07)
--- NOTE | 2020-03-12 06:50 | PC.NURSE ---
Right tonisillar abscess Ct confirms the tonsillar abscess. Pt will be transferred to ICU 3 for IV antibiotics and follow up care.
[2020-03-12] MEDS: dexamethasone 4 mg/mL INJ 10 MG IVP ×2 (07:36→07:37)
[2020-03-12] MEDS: vancomycin 1,000 MG in sodium chloride 0.9% 250 ML 250 MG IV (07:37)
[2020-03-12] MEDS: clindamycin 600 MG/50 ML PREMIX 100 MG IV (07:38)
[2020-03-12] MEDS: dextrose 5%-sod chloride 0.45% 1,000 ML 75 ML IV (07:42)
--- NOTE | 2020-03-12 08:31 | PC.NURSE ---
Admission Pt was brought to ICU 3 at 0700 via wheelchair and transferred himself to bed. Pt was not complaining of pain or discomfort at the time. All vitals were WNL at time of admission. NSR was noted. All of patients belongings are at nurses station.
--- NOTE | 2020-03-12 09:07 | PM.CONSULT ---
Providers/Reason For Consult Consulting Physican/Specialty*: Geovanny Fitzgerald MD Otolaryngology, Head & Neck Surgery Reason for Consult*: Right Peritonsillar Abscess Requesting Physcian: Fernando Thakkar MD Attending Physician: Fernando Thakkar MD History of Present Illness History of Present Illness Mario Alberto Figueroa Jr is a 24 year old male with a 6 day h/o worsening right sided sore throat. I was consulted after a right peritonsilar abscess was noted on a neck CT scan. The patient reports that he has not been able to eat over this time period and desires treatment. The patient denies any other noted palliative or provocative factors, and describes his current symptoms as severe. Review of Systems General: Reports: 10 or more systems reviewed and unremarkable except in HPI and below Meds/Allergies Home Medications and Allergies Home Medications Medication Instructions Recorded Confirmed Last Taken Type No Known Home Medications 01/19/20 03/12/20 Unknown History Allergies Allergy/AdvReac Type Severity Reaction Status Date / Time atomoxetine [From Strattera] Allergy Unknown Verified 03/12/20 02:38 Current Medications Current Medications Generic Name Dose Route Start Last Admin Trade Name Freq PRN Reason Stop Dose Admin Vancomycin HCl 1,000 mg/ 250 mls @ 250 mls/hr 03/12/20 05:30 03/12/20 07:37 Sodium Chloride IV 250 mls/hr Q12H LENI Administration Protocol Clindamycin HCl/Dextrose 600 mg in 50 mls @ 100 mls/hr 03/12/20 05:30 03/12/20 08:26 Cleocin IV Infused Q8H LENI Infusion Protocol Dextrose/Sodium Chloride 1,000 mls @ 75 mls/hr 03/12/20 07:08 03/12/20 07:42 Dextrose 5%-Sod Chloride 0.45% IV 75 mls/hr .[id number] LENI Administration PFSH Acute PFSH: Medical History (Updated 03/12/20 @ 05:06 by Stuart Wilcox MD) Alcohol abuse Marijuana abuse Polysubstance abuse Surgical History (Updated 03/12/20 @ 05:01 by Stuart Wilcox MD) No pertinent past surgical history Family History (Updated 03/12/20 @ 05:02 by Stuart Wilcox MD) Denies family history of Cancer Social History (Updated 03/12/20 @ 05:02 by Stuart Wilcox MD) Smoking and tobacco status: current every day smoker cigarettes Alcohol intake: current Alcohol intake frequency: few times a week Substance/Drug Use: current Substance/Drug use type: Methamphetamine Vitals/I&O/Wt Last Vital Signs Temp 97.6 F 03/12/20 06:00 Pulse 86 03/12/20 06:00 Resp 19 H 03/12/20 06:00 BP 122/67 03/12/20 06:00 Pulse Ox 100 03/12/20 06:00 03/11/20 03/12/20 03/12/20 22:59 06:59 14:59 Intake Total 50 / 50 Balance 50 / 50 Weight last 48 hrs Weight 70.307 kg Physical Exam HENMT: COMMON NORMALS: atraumatic and external ears normal HEAD & SCALP: normal to inspection and atraumatic EXTERNAL EAR: Yes external ears normal MOUTH: tongue normal and other (+ Swelling and medial displacement of right tonsil, minimal trismus noted) Eye: COMMON NORMALS: EOMs intact bilaterally Neck/C-Spine: COMMON NORMALS: full ROM and supple GENERAL: Yes normal visual inspection Data Imaging^: Other CT: My impression: Right peritonsillar abscess; airway widely patent A&P Additional A&P Information Impression: Right Peritonsillar Abscess Plan: - I&D of right peritonsillar abscess as above - I recommend Clindamycin po or IV for 10 days - I also recommend steroids IV, PO, or IM - The patient will need pain meds for 1 or 2 days - The patient is to f/u with me as an outpatient in one week - Please contact me for any problems Consult Attestations Medical Necessity Statement: I was consulted to manage the patient's right peritonsillar abscess Procedures Procedure Narrative Incision and Drainage, Right Peritonsillar Abscess: Written informed consent was obtained from the patient; the patient's mouth was sprayed with Hurricaine and the right tonsil upper pole was injected with 2mL of 1% Lidocaine with Epi; purulent material was aspirated from the right upper pole with a 22 gauge needle; a horizontal incision was made at the superior pole of the right tonsil with a #11 blade, and the abscess cavity was opened with a tonsil clamp; 10mL of purulent material was drained from the patient's right tonsil abscess; the procedure was terminated and the patient tolerated the procedure well; there were no complications. Coding Level of Care Code Acute Substance Addiction Coordinator for Farideh Moreno
[2020-03-12] MEDS: HYDROmorphone 1 mg/mL INJ 1 mL IVP (09:12)
--- NOTE | 2020-03-12 09:24 | PC.NURSE ---
Bedside procedure Bedside procedure was done at around 0845. All vitals were WNL during and after. Pt was given yanker for suction and a mixture of purulent and sanguineous drainage was noted. Patient complained of pain but was given PRN pain medication. Resting in bed with eyes closed. Respirations are even and non labored.
--- NOTE | 2020-03-12 12:07 | PM.MISC ---
Miscellaneous Note Purpose of Documentation: Patient had right peritonsillar abscess aspirated with significant clinical improvement. Patient reports that his pain is now completely gone. He denies shortness of breath or chest pain. Dr. Fitzgerald recommends to continue clindamycin for 10 days and follow-up with him in his clinic in 1 week. Given significant clinical improvement we will transfer patient back to neuropsychiatric unit on oral clindamycin.
[2020-03-12] MEDS: acetaminophen 325 mg Tablet 650 MG PO ×2 (14:54→21:23)
[2020-03-12] MEDS: clindamycin 150 mg Capsule 300 MG PO ×2 (14:54→20:40)
[2020-03-12] MEDS: trazodone 50 mg Tablet PO (20:41)
--- NOTE | 2020-03-12 20:45 | PC.NURSE ---
PRN TRAZODONE ADMINISTERED TRAZODONE 50MG PO PER PT REQUEST FOR SLEEP AID. WILL MONITOR FOR MEDICATION EFFECTIVENESS.
--- NOTE | 2020-03-12 21:14 | PC.NURSE ---
PM ASSESSMENT Pt has returned from ICU and after having abscess drained at the bedside near the tonsil area of his throat. He reports feeling much better. He denies SI at this time. He is very energetic this evening. He has been very hungry since it has been several days since he was able to eat anything. He reports no pain at this time. He is uplifted, laughing in the dayroom, interacting with staff/other patients. Calm and cooperative this evening. This is a completely different situation from his admission to the unit last night.
--- NOTE | 2020-03-13 03:47 | PC.NURSE ---
Follow up Pt has snacked and ate soft foods all evening. He reports missing Breakfast, Lunch, and Dinner. He was very hungry. He is able to eat without discomfort at this time. Pt has slept well this evening and been very pleasant to work with. He is cooperative, energetic, and very sweet in his conversations. He spoke to his girlfriend and sister aixa on the phone and both conversations were polite. He went to bed without much effort and continues to rest this evening. He did say that the popsicles are the most helpful with the swelling in his throat.
[2020-03-13 06:00] VITALS: BP 120/55; PULSE 71; RESP 18; TEMP 36.7; O2SAT 97
[2020-03-13 06:59] LABS: Basophils % 0.1 %; Eosinophils % 0.1 %; Hematocrit 42.6 % (42.0-52.0); Hemoglobin 14.5 g/dL (11.7-16.6); Lymphocytes # 1.9 10^3/uL (0.8-4.8); Lymphocytes % 11.4 %; Mean Corpuscular Hemoglobin 29.3 pg (28.0-34.0); Mean Corpuscular Volume 86.1 fL (80-94); Monocytes # 1.1 10^3/uL (0.2-0.9); Monocytes % 6.6 %; Neutrophils % 80.9 %; Nucleated Red Blood Cells % 0 %; Platelet Count 337 10^3/cmm (130-400); Red Blood Count 4.95 10^6/uL (4.1-5.3); Red Cell Distribution Width 11.9 % (12.1-15.1); White Blood Count 16.7 10^3/uL (4.0-10.0)
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
[2020-03-13 07:09] LABS: Anion Gap 14.3 (5-19); Blood Urea Nitrogen 17 mg/dL (6-20); Calcium 9.9 mg/dL (8.5-10.5); Carbon Dioxide 28 mmol/L (22-29); Chloride 98 mmol/L (98-107); Glomerular Filtration Rate 168.5 mL/min (90-130); Glucose 120 mg/dL (65-115); Osmolality Calculated 285 mOsm/kg (285-295); Potassium 4.3 mmol/L (3.5-5.1); Sodium 136 mmol/L (136-145)
[2020-03-13] MEDS: clindamycin 150 mg Capsule 300 MG PO ×3 (07:59→21:10)
[2020-03-13] MEDS: nicotine 2 mg Gum BUCCAL (12:08)
--- NOTE | 2020-03-13 13:21 | PC.RESP ---
Smoker Cessation information sent to patient.
[2020-03-13 13:24] VITALS: BP 131/69; PULSE 78; RESP 20; TEMP 36.6; O2SAT 97
[2020-03-13] MEDS: LORazepam 2 mg/mL INJ 1 mL IM (16:37)
[2020-03-13] MEDS: haloperidol inj 5 mg/mL INJ 1 mL IM (16:38)
--- NOTE | 2020-03-13 16:38 | PC.NURSE ---
Addendum entered by Lashay Ramirez LPN 03/13/20 17:32: PRN MEDS EFFECTIVE NO FURTHER C/O AGITATION/AGGRESSION/ANXIETY. PT RESTING QUIETLY IN DAYROOM, WATCHING TV Original Note: CODE 10/PRN ATIVAN & HALDOL PT GETTING UPSET, YELLING LOUDLY CURSING AT NURSES STATION. YELLING AT STAFF THAT HE MISSED THE OF HIS SON! CODE 10 CALLED, PRN MEDS PULLED. SEVERAL NURSES, NPU GEOPHYSICAL SUPPORT SPECIALIST, PHYSICIAN, SECURITY ON UNIT TO ENSURE PT/STAFF SAFETY. SECURITY SPEAKING TO PATIENT IN HALLWAY, ENCOURAGING THERAPEUTIC COMMUNICATION. STAFF MADE CALL TO PT'S GIRLFRIEND TO ENSURE HER SAFETY. PT WAS ABLE TO TALK TO HIS GIRLFRIEND AND ESTABLISHED THAT SHE WAS AT HOME AND SAFE. PT TOOK MEDS WITHOUT INCIDENT. INJECTION OF ATIVAN 2 MG WITH HALDOL 5 MG GIVEN IM IN RIGHT DELTOID. STAFF WILL CONTINUE TO MONITOR PATIENT TO ENSURE HIS SAFETY.
--- NOTE | 2020-03-13 16:51 | PC.NURSE ---
CODE 10 Patient just got off the phone and stated his girlfriend just had a baby and he wanted to leave. Explained Dr Steele was off the unit and would be back shortly. He began pacing and yelling he would leave now, ripped his shirt off and slammed into the locked door. Code 10 called at 1618. supervisor putty and caluking and security present. Verbal de-escalation by ELVIRA Harris and Cameron See. Offered to call and let him facetime gf. When called family declined to let him facetime but he did speak with her on the phone. He requested medication, given by Lashay. Patient remains calm.
--- NOTE | 2020-03-13 17:09 | PC.NURSE ---
1654 Behavior Patient was seen on monitor trying to flip tables and chairs. Stated he would in here tonight if he did not see his child tonight. Security and Dr Steele with patient and verbally de escalated.
--- NOTE | 2020-03-13 18:14 | PC.NURSE ---
Phone Call Naheed called for Mario Alberto and told her he was sleeping and she asked what happened earlier. I asked her if there was a baby and she said no..........well my mind is just confused right now, have him call me when he wakes up then hung up.
[2020-03-13 19:30] VITALS: PULSE 88; RESP 17; O2SAT 96
[2020-03-13] MEDS: trazodone 50 mg Tablet PO (21:11)
[2020-03-13 21:13] VITALS: BP 129/60; PULSE 87; RESP 20; TEMP 36.5; O2SAT 97
[2020-03-14 05:40] VITALS: BP 111/67; PULSE 93; RESP 18; TEMP 36.4; O2SAT 97
[2020-03-14] MEDS: clindamycin 150 mg Capsule 300 MG PO ×3 (07:58→20:16)
[2020-03-14 09:20] VITALS: PULSE 76; RESP 18; O2SAT 97
[2020-03-14 13:45] VITALS: BP 108/75; PULSE 80; RESP 18; TEMP 36.8
--- NOTE | 2020-03-14 18:50 | PM.NPN ---
Subjective NPU Subjective: Interval history: Mario Alberto presents today continuing to endorse that some of the fantastical stories that he was telling yesterday were accurate. Continues to endorse that he had a child born yesterday even though the mother of the child denied that being accurate. He reports that her mother does not want him to be associated with the child so she is making her say that. We discussed the risks, benefits and alternatives of starting lithium and he understood and agreed to proceed as documented in his note. It was explained to him that the 300 mg capsules that we carry have red dye in them and so he will be getting two 150 mg capsules. Mental Status Exam MSE Comments: This is a slender white male looking younger than his stated age with adequate grooming and eye contact. No abnormal movement except for psychomotor agitation. Cooperative exam in no acute distress. Speech was slightly increased rate and volume. Mood described as great, affect euphoric. Thought process organized. Thought content: Patient denied any suicidal or homicidal ideation, there were no delusions reported but grandiose delusions appear to present, he denied any auditory or visual hallucinations. Attention and concentration were mostly intact and memory appeared unreliable but none were formally tested. Oriented x3. Insight and judgment are impaired, impulse control is impaired. Vitals/I&O/Wt Last Vital Signs Temp 97.9 F 03/14/20 20:00 Pulse 84 03/14/20 21:50 Resp 18 03/14/20 21:50 BP 120/75 03/14/20 20:00 Pulse Ox 98 03/14/20 21:50 Data NPU : 03/13/20 06:35 03/13/20 06:35 A&P Additional A&P Information (1) Suicidal ideation: (2) Polysubstance abuse: (3) Submandibular gland swelling: (4) Tonsillar erythema: (5) Bipolar disorder: (6) Charis: This is a 24-year-old white male with a long history of health issues who presents with apparent charis and reported psychosis with a peritonsillar infection appearing very grandiose and wanting to discharge. 1. Continue current medication. Start lithium 300 mg p.o. twice daily and in the hospital will be to 150 mg capsules because of his allergy to red dye which is found in the 300 mg capsules here. 2. Continue every 15 minute checks for safety. 3. Encourage individual, group and milieu therapy. 4. Work with patient on discharge, however if he attempts to leave at this point we will 96 him. Involuntary Hold Information 96 Hour Hold: 96 Hour Involuntary Admission: No Attestations NPU Medical Necessity Statement*: Inpatient hospitalization is medically necessary and the clinically appropriate intervention at this time. We will monitor medications and make changes as indicated. Likely length of stay 3-5 days. Coding Level of Care Code Acute Systems Administrator for [facility] Moreno
[2020-03-14 20:00] VITALS: BP 120/75; PULSE 75; RESP 18; TEMP 36.6; O2SAT 98
[2020-03-14] MEDS: trazodone 50 mg Tablet PO (20:16)
[2020-03-14] MEDS: hyDROXYzine 25 mg Capsule 50 MG PO (20:16)
[2020-03-14] MEDS: lithium carbonate 150 mg Capsule 300 MG PO (20:16)
[2020-03-14 21:50] VITALS: PULSE 84; RESP 18; O2SAT 98
[2020-03-15 06:00] VITALS: BP 127/77; PULSE 80; RESP 17; TEMP 36.3; O2SAT 96
[2020-03-15] MEDS: lithium carbonate 150 mg Capsule 300 MG PO ×2 (08:11→20:10)
[2020-03-15] MEDS: clindamycin 150 mg Capsule 300 MG PO ×3 (08:11→20:10)
[2020-03-15 14:00] VITALS: BP 138/73; PULSE 116; RESP 20; TEMP 36.7; O2SAT 98
--- NOTE | 2020-03-15 15:57 | P.PN_ITS ---
Subjective NPU Subjective: Interval history: Mario Alberto presents today endorsing happiness because he feels that some of the barriers to his success with his girlfriend are being dealt with. Reportedly her family is going to give him a chance and is going to have him be a part of their Samm. He continues to endorse having a child when we are fairly certain that he does not. He talked about reconnecting with his foster family and feeling some support from them. He reports the medication is helping he reports he is eating and sleeping fine. Mental Status Exam MSE Comments: This is a slender white male looking younger than his stated age with adequate grooming and eye contact. No abnormal movement except for psychomotor agitation. Cooperative exam in no acute distress. Speech was slig htly increased rate and volume. Mood described as very good, affect euphoric. Thought process organized. Thought content: Patient denied any suicidal or homicidal ideation, there were no delusions reported but grandiose delusions appear to present, he denied any auditory or visual hallucinations. Attention and concentration were mostly intact and memory appeared unreliable but none were formally tested. He is alert and oriented x3. Insight and judgment are impaired, impulse control is impaired. Vitals/I&O/Wt Last Vital Signs Temp 98.1 F 03/15/20 20:12 Pulse 96 03/15/20 20:12 Resp 19 H 03/15/20 20:12 BP 121/65 03/15/20 20:12 Pulse Ox 97 03/15/20 20:12 Weight last 48 hrs Weight 70.307 kg Data NPU : 03/13/20 06:35 03/13/20 06:35 A&P Additional A&P Information (1) Suicidal ideation: (2) Polysubstance abuse: (3) Submandibular gland swelling: (4) Tonsillar erythema: (5) Bipolar disorder: (6) Brian: This is a 24-year-old white male with a long history of health issues who presents with apparent brian and reported psychosis with a peritonsillar infection appearing very grandiose and wanting to discharge. 1. Continue current medication. 2. Continue every 15 minute checks for safety. 3. Encourage individual, group and milieu therapy. 4. Work with patient on discharge, however if he attempts to leave at this point we will 96 him. Involuntary Hold Information 96 Hour Hold: 96 Hour Involuntary Admission: No Attestations NPU Medical Necessity Statement*: Inpatient hospitalization is medically necessary and the clinically appropriate intervention at this time. We will monitor medications and make changes as indicated. Likely length of stay 2-4 days. Coding Level of Care Code Acute Food Service Supervisor for Far[facility] Moreno
[2020-03-15] MEDS: trazodone 50 mg Tablet PO (20:10)
[2020-03-15] MEDS: hyDROXYzine 25 mg Capsule 50 MG PO (20:10)
[2020-03-15 20:12] VITALS: BP 121/65; PULSE 96; RESP 19; TEMP 36.7; O2SAT 97
--- NOTE | 2020-03-15 20:12 | PC.NURSE ---
IN DAY ROOM WATCHING TV. PLEASANT, DENIES WANTING TO HARM SELF.
--- NOTE | 2020-03-15 20:26 | P.CONIM_ITS ---
Providers/Reason For Consult Consulting Physican/Specialty*: Hospitalist service Reason for Consult*: Peritonsillar abscess drainage follow-up Attending Physician: Sesar Steele MD History of Present Illness History of Present Illness Mario Alberto Figueroa Jr is a 24 year old male who was admitted to neuropsychiatric unit for suicidal ideation, I was consulted because he was complaining of right ear pain and odynophagia, he was evaluated was diagnosed with right peritonsillar abscess, ENT was consulted on stat basis, he was started on Decadron, clindamycin and vancomycin, peritonsillar abscess was drained by Dr. Fitzgerald. Same day he was transferred back to neuropsychiatric unit. Hospitalist service has been requested to do a follow-up visit after the procedure before discharge. Today patient is not complaining of any odynophagia, dysphagia, sore throat, shortness of breath, chest pain or neck pain. He seemed very positive and was e xcited to go home tomorrow. He has been on clindamycin 300 mg 3 times a day 10-day regimen day 06/10. He has remained afebrile, 03/12 white count 12.3, 03/13 white count 16.7 I do not have any labs from today to trend, BMP seems normal, drug screen positive for marijuana, blood cultures negative to date, I do not see any CBC or culture report from the abscess drainage yet Previous CT scan neck x-ray reviewed, EKG showing incomplete right bundle branch block, Review of Systems Const: Denies: fever(s), chills or body aches Eyes: Denies: change in vision ENMT: Denies: throat pain Card: Denies: chest pain Resp: Denies: dyspnea or non-productive cough GI: Denies: abdominal pain : Denies: flank pain Musc: Denies: neck pain Skin/Breast: Denies: rash Neuro: Denies: headache(s) Psych: Denies: anxiety Endo: Denies: polyuria Gianfranco/Lymph: Denies: easy bruising All/Imm: Denies: urticaria Meds/Allergies Home Medications and Allergies Home Medications Medication Instructions Recorded Confirmed Last Taken Type No Known Home Medications 01/19/20 03/12/20 Unknown History Allergies Allergy/AdvReac Type Severity Reaction Status Date / Time atomoxetine [From Strattera] Allergy Unknown Verified 12/10/20 02:38 red dye Allergy Unknown Verified 03/12/20 15:29 Current Medications Current Medications Generic Name Dose Route Start Last Admin Trade Name Freq PRN Reason Stop Dose Admin Acetaminophen 650 mg 03/12/20 04:19 03/12/20 21:23 Acetaminophen 325 Mg Tablet PO 650 mg Q4H PRN Administration MILD PAIN Clindamycin HCl 300 mg 03/12/20 15:00 03/15/20 20:10 Clindamycin 150 Mg Capsule PO 300 mg TID LENI Administration Protocol Haloperidol Lactate 5 mg 03/12/20 04:19 03/13/20 16:38 Haloperidol Inj 5 Mg/Ml Inj 1 Ml IM 5 mg Q4H PRN Administration Severe Aggression Hydroxyzine Pamoate 50 mg 03/12/20 04:19 03/15/20 20:10 Hydroxyzine 25 Mg Capsule PO 50 mg Q6H PRN Administration ANXIETY [place] Carbonate 300 mg 03/14/20 21:00 03/15/20 20:10 [place] Carbonate 150 Mg Capsule PO 300 mg 0900,2100 LENI Administration Lorazepam 2 mg 03/12/20 04:19 03/13/20 16:37 Lorazepam 2 Mg/Ml Inj 1 Ml IM 2 mg Q4H PRN Administration Severe Aggression Nicotine Polacrilex 2 mg 03/12/20 04:19 03/13/20 12:08 Nicotine 2 Mg Gum BUCCAL 2 mg Q2H PRN Administration NICOTINE WITHDRAWAL Trazodone HCl 50 mg 03/14/20 19:46 03/15/20 20:10 Trazodone 50 Mg Tablet PO 50 mg BEDTIME PRN Administration SLEEP PFSH Acute PFSH: Medical History Alcohol abuse Marijuana abuse Polysubstance abuse Surgical History H/O peritonsillar abscess drainage No pertinent past surgical history Family History Denies family history of Cancer Social History Smoking and tobacco status: current every day smoker cigarettes Alcohol intake: current Alcohol intake frequency: few times a week Substance/Drug Use: current Substance/Drug use type: Methamphetamine Vitals/I&O/Wt Last Vital Signs Temp 98.1 F 03/15/20 20:12 Pulse 96 03/15/20 20:12 Resp 19 H 03/15/20 20:12 BP 121/65 03/15/20 20:12 Pulse Ox 97 03/15/20 20:12 Weight last 48 hrs Weight 70.307 kg Physical Exam Narrative: EXAM NARRATIVE: Cameron was watching television when I entered the room he was very positive and energetic He was excited to leave tomorrow Appears well-hydrated No active complaints No chest pain or shortness of breath Did not complain of any neck pain, abdominal pain Abdomen soft nontender No neurological deficit Appropriate mood, euthymic I could appreciate drastic change in his mood and behavior Posterior pharyngeal wall does not show any hyperemia or active drainage of pus Injection site seems to be healing well, no swelling noted, right submandibular mild lymphadenopathy nontender A&P Assessment and plan (1) Peritonsillar abscess: Status post right peritonsillar abscess drainage No active complaints Sepsis resolved day 06/10 on clindamycin, Would recommend Chloraseptic mouthwash twice a day, in case he starts having neck pain or odynophagia, rigors or shortness of breath should come to ER right away. 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
[2020-03-16 06:00] VITALS: BP 122/73; PULSE 69; RESP 15; TEMP 37.5; O2SAT 99
[2020-03-16] MEDS: clindamycin 150 mg Capsule 300 MG PO ×3 (08:10→20:51)
[2020-03-16] MEDS: lithium carbonate 150 mg Capsule 300 MG PO (08:10)
[2020-03-16] MEDS: blistex lip oint 7 gm Tube 1 APPLIC TOPICAL (08:24)
[2020-03-16 13:35] VITALS: BP 132/74; PULSE 87; RESP 18; TEMP 36.8; O2SAT 96
--- NOTE | 2020-03-16 16:10 | P.PN_ITS ---
Subjective NPU Subjective: Interval history: Mario Alberto presents today reporting that the medication is excellent. And he feels great. Reports that he always has this humming type energy and he has to move but something about the lithium makes him not feel bad but feel good not moving. He continues to focus his day in energy on his significant other. Only mentions is good when I mention this kid confirming the existence but not naturally or organically being this suppose it into conversation. At one point he was overheard on a conversation with his girlfriend talking about them getting a place together and saying it would be great ill just BUN me. He is eating fine and sleeping okay. Mental Status Exam MSE Comments: This is a slender white male looking younger than his stated age with adequate grooming and eye contact. No abnormal movement except for psychomotor agitation. Cooperative exam in no acute distress. Speech was slightly increased rate and volume. Mood described as excellent, affect euphoric. Thought process organized. Thought content: Patient denied any allie cidal or homicidal ideation, there were no delusions reported but grandiose delusions appear to present, he denied any auditory or visual hallucinations. Attention and concentration were mostly intact and memory appeared unreliable but none were formally tested. He is alert and oriented x3. Insight and judgment are impaired, impulse control is impaired. Vitals/I&O/Wt Last Vital Signs Temp 97.7 F 03/16/20 21:30 Pulse 70 03/16/20 21:30 Resp 19 H 03/16/20 21:30 BP 137/98 03/16/20 21:30 Pulse Ox 97 03/16/20 21:30 Weight last 48 hrs Weight 70.307 kg Data NPU : 03/13/20 06:35 03/13/20 06:35 A&P Additional A&P Information (1) Suicidal ideation: (2) Polysubstance abuse: (3) Submandibular gland swelling: (4) Tonsillar erythema: (5) Bipolar disorder: (6) Brian: This is a 24-year-old white male with a long history of health issues who presents with apparent brian and reported psychosis with a peritonsillar infection appearing very grandiose and wanting to discharge. 1. Continue current medication. Increase lithium to 450 mg p.o. twice daily and in the hospital will be 3 150 mg capsules because of his allergy to red dye which is found in the 300 mg capsules here. 2. Continue every 15 minute checks for safety. 3. Encourage individual, group and milieu therapy. 4. Work with patient on discharge, however if he attempts to leave at this point we will 96 him. Involuntary Hold Information 96 Hour Hold: 96 Hour Involuntary Admission: No Attestations NPU Medical Necessity Statement*: Inpatient hospitalization is medically necessary and the clinically appropriate intervention at this time. We will monitor medications and make changes as indicated. 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
[2020-03-16 21:30] VITALS: BP 137/98; PULSE 70; RESP 19; TEMP 36.5; O2SAT 97
--- NOTE | 2020-03-16 21:48 | PC.NURSE ---
HAS BEEN ON PHONE ALOT THIS EVENING, PACING HALLWAY, REFUSING MEDS FOR SLEEP.
[2020-03-16] MEDS: lithium carbonate 150 mg Capsule 450 MG PO (21:55)
[2020-03-16] MEDS: trazodone 50 mg Tablet PO (21:56)
--- NOTE | 2020-03-17 00:54 | PC.NURSE ---
tRAZODONE 50MG PO GIVEN @2156 FOR INABILITY TO SLEEP. fOLLOWUP @2240 pT IS RESTING IN HIS ROOM WITHOUT ANY S/S OF DISTRESS AT THIS TIME wILL CONTINUE TO MONITOR THIS PATIENT
[2020-03-17 06:00] VITALS: BP 128/78; PULSE 74; RESP 17; TEMP 37.1; O2SAT 97
[2020-03-17] MEDS: clindamycin 150 mg Capsule 300 MG PO ×3 (08:22→20:35)
[2020-03-17] MEDS: lithium carbonate 150 mg Capsule 450 MG PO ×2 (08:23→20:36)
[2020-03-17 14:00] VITALS: BP 137/83; PULSE 92; RESP 18; TEMP 36.7; O2SAT 99
--- NOTE | 2020-03-17 17:30 | P.PN_ITS ---
Subjective NPU Subjective: Interval history: Mario Alberto continues to entertain some of the [facility] manic reports that he made upon admission. He was getting a little irritable today feeling like he had been promised discharge and was not delivered. He had a moment where he accidentally busted a bag of snacks at the [employer] school social studies tutor's door. We discussed the risks, benefits and alternatives of getting a lithium level in the morning and possibly discharge tomorrow if he is able to maintain himself and he understood and agreed to proceed as documented in this note. Mental Status Exam MSE Comments: This is a slender white male looking younger than his stated age with adequate grooming and eye contact. No abnormal movement except for mostly decreasing psychomotor agitation. Cooperative exam in no acute distress. Speech was more normal rate and volume. Mood described as okay I just want to g et out of here, affect euthymic. Thought process organized. Thought content: Patient denied any suicidal or homicidal ideation, there were no delusions reported but grandiose delusions appear to present, but diminishing, he denied any auditory or visual hallucinations. Attention and concentration were mostly intact and memory appeared unreliable but none were formally tested. He is alert and oriented x3. Insight and judgment are impaired, but improving impulse control is impaired. Vitals/I&O/Wt Last Vital Signs Temp 98.4 F 03/17/20 20:40 Pulse 105 H 03/17/20 20:40 Resp 18 03/17/20 20:40 BP 134/71 03/17/20 20:40 Pulse Ox 99 03/17/20 20:40 Data NPU : 03/13/20 06:35 03/13/20 06:35 Micro: Microbiology 03/12/20 10:01 Blood Culture - Final Blood NO GROWTH AFTER 5 DAYS 03/12/20 10:06 Blood Culture - Final Blood NO GROWTH AFTER 5 DAYS Microbiology 03/12/20 10:01 Blood Blood Culture - Final NO GROWTH AFTER 5 DAYS 03/12/20 10:06 Blood Blood Culture - Final NO GROWTH AFTER 5 DAYS A&P Additional A&P Information (1) Suicidal ideation: (2) Polysubstance abuse: (3) Submandibular gland swelling: (4) Tonsillar erythema: (5) Bipolar disorder: (6) Charis: This is a 24-year-old white male with a long history of health issues who presents with apparent charis and reported psychosis with a peritonsillar infection appearing very grandiose and wanting to discharge. 1. Continue current medication. 2. Continue every 15 minute checks for safety. 3. Encourage individual, group and milieu therapy. 4. Work with patient on discharge, however if he attempts to leave at this point we will 96 him. 5. Check lithium level just prior to morning dose. Involuntary Hold Information 96 Hour Hold: 96 Hour Involuntary Admission: No Attestations NPU Medical Necessity Statement*: Inpatient hospitalization is medically necessary and the clinically appropriate intervention at this time. We will monitor medications and make changes as indicated. 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
[2020-03-17] MEDS: hyDROXYzine 25 mg Capsule 50 MG PO (20:35)
[2020-03-17] MEDS: trazodone 50 mg Tablet PO (20:36)
[2020-03-17 20:40] VITALS: BP 134/71; PULSE 105; RESP 18; TEMP 36.9; O2SAT 99
[2020-03-18 06:00] VITALS: BP 139/64; PULSE 87; RESP 16; TEMP 37.4; O2SAT 98
--- NOTE | 2020-03-18 06:48 | PC.NURSE ---
Pt hid remote Pt took the television remote and hid it in his bed.Explained to the patient that he could not do this. He apologized and returned remote to staff.
[2020-03-18 07:40] VITALS: PULSE 89; RESP 16; O2SAT 100
[2020-03-18] MEDS: clindamycin 150 mg Capsule 300 MG PO (08:09)
[2020-03-18 11:31] LABS: Lithium 0.4 mmol/L (0.6-1.2)
[2020-03-18 11:50] VITALS: PULSE 89; RESP 16; O2SAT 100
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
== END 2020-03-18 13:21 | disposition home or self-care (01) | DRG 885 ==
LOC: ER 02:49 → NP 02:50 → ICU 07:15 → NP 13:03
PROVIDERS: Admitting Provider Internal Medicine; Emergency Provider Emergency Medicine; Visit Provider Psychiatry & Neurology Psychiatry
DX: F31.9 Bipolar disorder, unspecified (principal); R45.851 Suicidal ideations; J35.8 Other chronic diseases of tonsils and adenoids; F17.210 Nicotine dependence, cigarettes, uncomplicated
CPT/HCPCS: 12345; 36415; 70360; 70491; 80048; 80053; 80178; 80306; 80307; 83605; 84443; 85025; 86140; 87040; 93005; 96372; 99284; J1100; J1170; J1630; J2060; J3370; J3490; J7050; J7799; Q9967

== ENCOUNTER 2020-03-30 17:50 | Inpatient (IN) | payer MEDICAID, SELFPAY ==
[2020-03-30 17:51] VITALS: RESP 16; BMI 21.4
--- NOTE | 2020-03-30 18:06 | ED_ITS ---
HPI - Psych General: Chief Complaint: Psychiatric Symptoms Stated Complaint: SI Time Seen by Provider: 03/30/20 17:56 Source: patient and EMS Mode of arrival: EMS Limitations: no limitations History of Present Illness: HPI Narrative: 24-year-old male who is here with EMS for suicidal ideations. He states he has had thoughts of killing himself over the last 2 days. He states he has a plan of jumping off a bridge. He voluntarily wants to get help. He denies any worsening or improving factors. He is on lithium currently. Associated symptoms: Reports depression and suicidal ideation Review of Systems Const: Denies: fever(s), chills, body aches or change in appetite Eyes: Denies: blurry vision or eye discomfort ENMT: Denies: throat pain or dental pain Card: Denies: chest pain Resp: Denies: dyspnea GI: Denies: abdominal pain, nausea, vomiting or diarrhea : Denies: dysuria Musc: Denies: neck pain or back pain Skin/Breast: Denies: rash Neuro: Denies: headache(s) Psych: Reports: depression and suicidal ideation Gianfranco/Lymph: Denies: easy bruising All/Imm: Denies: urticaria PFSH ED PFSH: Medical History Alcohol abuse Marijuana abuse Polysubstance abuse Surgical History H/O peritonsillar abscess drainage No pertinent past surgical history Family History Denies family history of Cancer Social History Smoking and tobacco status: current every day smoker cigarettes Alcohol intake: current Alcohol intake frequency: few times a week Physical Exam Const: COMMON NORMALS: no acute distress, patient oriented x3 and healthy appearing HENMT: COMMON NORMALS: normocephalic and atraumatic HEAD & SCALP: normocephalic and atraumatic Eye: COMMON NORMALS: Equal, round and reactive pupils present and EOMs intact bilaterally PUPIL: Yes Equal, round and reactive pupils present Neck/C-Spine: COMMON NORMALS: full ROM and supple Chest: COMMONS NORMALS: normal inspection of the chest and normal palpation of entire chest wall Resp: COMMON NORMALS: normal respiratory effort, No retractions, No use of accessory muscles and clear to auscultation bilaterally AUSCULTATION: clear to auscultation bilaterally Cardio: COMMON NORMALS: regular rate, regular rhythm and No murmurs present (Cardio) RATE: regular rate RHYTHM: regular rhythm GI: COMMON NORMALS: Normal to inspection, nondistended, normoactive bowel sounds present, Soft to palpation, non-tender and no masses PALPATION: Yes Soft to palpation Extremity: COMMON NORMALS: normal to inspection and full ROM Neuro: COMMON NORMALS: patient oriented x3, moves all extremities and no focal motor deficits Psych: COMMON NORMALS: mental status grossly normal, Normal thought process present and cooperative THOUGHT PROCESS: Normal thought process present THOUGHT CONTENT: Yes Suicidality present Skin: COMMON NORMALS: no rashes or lesions noted and no wounds GENERAL SKIN EXAM: no rashes or lesions noted MDM - Psych MDM Narrative: Medical decision making narrative: Cameron presents for suicidal ideations and voluntarily was to be admitted. Patient's well-appearing here and medically cleared. I spoke to Dr. Steele and will admit the psychiatric unit. Lab Data: Labs: Lab Results 03/30/20 03/30/20 03/30/20 Range/Units 18:04 18:07 18:07 WBC 4.9 (4.0-10.0) 10^3/ uL RBC 4.98 (4.1-5.3) 10^6/u L Hgb 14.4 (11.7-16.6) g/dL Hct 43.6 (42.0-52.0) % MCV 87.6 (80-94) fL MCH 28.9 (28.0-34.0) pg MCHC 33.0 (30.0-36.0) g/dL RDW 12.2 (12.1-15.1) % Plt Count 341 (130-400) 10^3/c mm MPV 9.1 (7.4-10.4) fL Neut % (Auto) 48.6 % Lymph % (Auto) 38.3 % Scurry % (Auto) 8.2 % Eos % (Auto) 3.7 % Baso % (Auto) 1.0 % Neut # (Auto) 2.36 (1.8-7.7) 10^3/u L Lymph # (Auto) 1.9 (0.8-4.8) 10^3/u L Scurry # (Auto) 0.4 (0.2-0.9) 10^3/u L Eos # (Auto) 0.2 (0.0-0.8) 10^3/u L Baso # (Auto) 0.1 (0.0-0.1) 10^3/u L Nucleated RBC % (a uto) 0 % Nucleated RBCs # 0.0 /100WBC Sodium 139 (136-145) mmol/L Potassium 3.9 (3.5-5.1) mmol/L Chloride 102 (98-107) mmol/L Carbon Dioxide 30 H (22-29) mmol/L Anion Gap 10.9 (5-19) BUN 13 (6-20) mg/dL Creatinine 0.7 (0.7-1.2) mg/dL GFR Calculation 141.0 H (90-130) mL/min Glucose 87 (65-115) mg/dL Calculated Osmolal ity 287 (285-295) mOsm/k g Calcium 9.4 (8.5-10.5) mg/dL Total Bilirubin 0.3 (0.15-1.2) mg/dL AST 18 (0-40) U/L ALT 18 (0-41) U/L Alkaline Phosphata se 97 (40-130) IU/L Total Protein 7.2 (6.6-8.7) g/dL Albumin 4.3 (3.5-5.2) g/dL Globulin 2.9 (1.3-4.6) g/dL Urine Color Yellow (Yellow) Urine Appearance Hazy A (CLEAR) Urine pH 5 (5-7) Ur Specific Gravit y 1.025 (1.005-1.030) Urine Protein Trace (Negative) Urine Glucose (UA) Norm (Normal) Urine Ketones 1+ H (Negative) Urine Blood Neg (Negative) Urine Nitrate Negative (Negative) Urine Bilirubin 1+ H (Negative) Urine Urobilinogen 1 H (Negative) mg/dL Ur Leukocyte Yudith ase Negative (Negative) Urine RBC 0-4 H (0-2) /hpf Urine WBC None (0-5) /hpf Ur Squamous Epith Cells 0-4 H (0-5) /hpf Amorphous Sediment Not Reportable Urine Bacteria Trace (NONE) /hpf Urine Mucus 4+ /hpf Salicylates < 0.3 L (3-10) mg/dL Acetaminophen < 5.0 L (10-30) ug/mL Ethyl Alcohol < 10 (0-10) mg/dL Discharge Plan Discharge Patient Disposition: Admitted As Inpatient Admit Provider: Sesar Steele Clinical Impression: Suicidal ideation Condition: Stable Coding Level of Care Code ED Information Technology Audit Manager for Chg Fwd Exam Comprehensive
[2020-03-30 18:52] LABS: Basophils # 0.1 10^3/uL (0.0-0.1); Eosinophils # 0.2 10^3/uL (0.0-0.8); Eosinophils % 3.7 %; Hematocrit 43.6 % (42.0-52.0); Hemoglobin 14.4 g/dL (11.7-16.6); Lymphocytes # 1.9 10^3/uL (0.8-4.8); Lymphocytes % 38.3 %; Mean Corpuscular Hemoglobin 28.9 pg (28.0-34.0); Mean Corpuscular Volume 87.6 fL (80-94); Mean Platelet Volume 9.1 fL (7.4-10.4); Monocytes # 0.4 10^3/uL (0.2-0.9); Monocytes % 8.2 %; Neutrophils # 2.36 10^3/uL (1.8-7.7); Neutrophils % 48.6 %; Nucleated Red Blood Cells % 0 %; Platelet Count 341 10^3/cmm (130-400); Red Blood Count 4.98 10^6/uL (4.1-5.3); Red Cell Distribution Width 12.2 % (12.1-15.1); White Blood Count 4.9 10^3/uL (4.0-10.0)
[2020-03-30 19:19] VITALS: BP 114/56; PULSE 99; RESP 16; O2SAT 100
[2020-03-30 19:32] VITALS: BP 115/86; PULSE 98; RESP 16; O2SAT 100
[2020-03-30 19:55] LABS: Alanine Aminotransferase 18 U/L (0-41); Albumin Level 4.3 g/dL (3.5-5.2); Alkaline Phosphatase 97 IU/L (40-130); Anion Gap 10.9 (5-19); Aspartate Amino Transferase 18 U/L (0-40); Blood Urea Nitrogen 13 mg/dL (6-20); Calcium 9.4 mg/dL (8.5-10.5); Carbon Dioxide 30 mmol/L (22-29); Chloride 102 mmol/L (98-107); Globulin 2.9 g/dL (1.3-4.6); Glucose 87 mg/dL (65-115); Osmolality Calculated 287 mOsm/kg (285-295); Potassium 3.9 mmol/L (3.5-5.1); Sodium 139 mmol/L (136-145); Total Bilirubin 0.3 mg/dL (0.15-1.2); Total Protein 7.2 g/dL (6.6-8.7)
[2020-03-30 19:58] VITALS: BP 158/67; PULSE 79; RESP 18; TEMP 37.2; O2SAT 97
[2020-03-30 20:06] LABS: Acetaminophen < 5.0 ug/mL (10-30); Alcohol Level < 10 mg/dL (0-10); Salicylate < 0.3 mg/dL (3-10)
[2020-03-30 20:23] VITALS: BP 158/67; PULSE 79; RESP 18; TEMP 37.2; O2SAT 97
[2020-03-30 20:25] LABS: Add Urine Microscopic? YES; Bilirubin Urine 1+ (Negative); Blood Urine Neg (Negative); Glucose Urine UA Norm (Normal); Ketones Urine 1+ (Negative); Leukocyte Esterase Urine Negative (Negative); Nitrate Urine Negative (Negative); Protein Urine Trace (Negative); Specific Gravity, Urine 1.025 (1.005-1.030); Urine Appearance Hazy (CLEAR); Urine Color Yellow (Yellow); Urobilinogen Urine 1 mg/dL (Negative); pH Urine 5 (5-7)
[2020-03-30 20:32] LABS: Add Urine Culture? No; Bacteria Urine TRACE /hpf; Mucus Urine 4+ /hpf; RBC Urine 0-4 /hpf (0-2); Squamous Epithelial Cell Urine 0-4 /hpf (0-5)
[2020-03-30 21:58] LABS: Amphetamines Screen Urine Positive (Negative); Barbiturates Screen Urine Negative (Negative); Benzodiazepines Screen Urine Positive (Negative); Cocaine Screen Urine Negative (Negative); Opiate Screen Urine Negative (Negative); PCP Screen Urine Negative (Negative); THC Screen Urine Positive (Negative)
[2020-03-30 22:18] LABS: Lithium 0.1 mmol/L (0.6-1.2)
--- NOTE | 2020-03-31 04:27 | PC.NURSE ---
Skin assessment revealed self inflicted cigarette orr, one above left eyebrow, one on right arm about midway between wrist and antecubital.
[2020-03-31 06:00] VITALS: BP 87/44; PULSE 49; RESP 17; TEMP 36.7; O2SAT 98
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
[2020-03-31 14:00] VITALS: BP 113/62; PULSE 61; RESP 18; TEMP 36.8; O2SAT 99
[2020-03-31] MEDS: trazodone 50 mg Tablet PO (21:11)
[2020-03-31] MEDS: hyDROXYzine 25 mg Capsule 50 MG PO (21:11)
[2020-03-31 22:00] VITALS: BP 108/58; PULSE 58; RESP 16; TEMP 37; O2SAT 95
[2020-04-01 06:00] VITALS: BP 94/77; PULSE 42; RESP 15; TEMP 36.9; O2SAT 97
[2020-04-01] MEDS: lithium carbonate 150 mg Capsule 450 MG PO ×2 (07:58→21:55)
[2020-04-01 14:00] VITALS: BP 107/64; PULSE 75; RESP 20; TEMP 37; O2SAT 97
[2020-04-01] MEDS: escitalopram 10 mg Tablet PO (15:24)
--- NOTE | 2020-04-01 16:08 | PC.RESP ---
Smoking Cessation information sent to patient.
--- NOTE | 2020-04-01 17:37 | P.PN_ITS ---
Subjective NPU Subjective: Interval history: Mario Alberto presented today reporting that he had been taking his lithium but based on the 03/30/2020 lithium level of 0.1 versus his lithium level of 0.4 prior to the increase to 450 twice daily he had not been. We had already restarted the lithium based on his report of taking it and he reports he is tolerating the medication. Additionally he had agreed to starting Lexapro at this point he denies any side effects from his dosing. He does present endorsing irritability and denying any chance at success in his life reporting he should just give up. Mental Status Exam MSE Comments: This is a slender white male looking younger than his stated age, in hospital scrubs with adequate grooming and noted eye contact. No abnormal movement except for psychomotor agitation. Cooperative exam in mild distress. Speech was slightly increased rate and normal volume. Mood described as depressed, affect irritable. Thought process organized. Thought content: Patient endorsed some suicidal but denied homicidal ideation, there were no delusions reported or noted, he denied any auditory or visual hallucinations. Attention and concentration were mostly intact and memory appeared unreliable but none were formally tested. He is alert and oriented x3. Insight and judgment are impaired, impulse control is impaired. Vitals/I&O/Wt Last Vital Signs Temp 98.6 F 04/01/20 22:00 Pulse 61 04/01/20 22:00 Resp 16 04/01/20 22:00 BP 125/75 04/01/20 22:00 Pulse Ox 100 04/01/20 22:00 Data NPU : 03/30/20 18:07 03/30/20 18:07 A&P Additional A&P Information (1) Suicidal ideation: (2) Bipolar disorder: (3) Polysubstance abuse: (4) Marijuana abuse: (5) Methamphetamine abuse: Additional A&P Information This is a 24-year-old white male with a history of addiction and mood dysregulation with recent hospitalization who presents with active use and reports of depression and suicidal thinking. 1. Continue current medication. Based on previous lithium levels no new lithium level needs obtained for couple days, started the Lexapro 10 mg p.o. every morning. Depending on his response may need to hold the Lexapro for few days and let him get back to a better level on his lithium. 2. Continue every 15 minute checks for safety. 3. Encourage individual, group and milieu therapy. 4. Encourage discharge to sober living treatment at the highest level of care to which he is willing to commit. Involuntary Hold Information 96 Hour Hold: 96 Hour Involuntary Admission: No Attestations NPU Medical Necessity Statement*: Inpatient hospitalization is medically necessary and the clinically appropriate intervention at this time. We will monitor medications and maintain his indicated. Likely length of stay 3 to 5 days. Coding Level of Care Code Acute Production Generalist for Farideh Moreno
[2020-04-01] MEDS: hyDROXYzine 25 mg Capsule 50 MG PO (21:57)
[2020-04-01] MEDS: trazodone 50 mg Tablet PO (21:57)
[2020-04-01 22:00] VITALS: BP 125/75; PULSE 61; RESP 16; TEMP 37; O2SAT 100
--- NOTE | 2020-04-02 01:36 | PC.NURSE ---
PM assessment PT denies HI, SI, AH, VH. Pt denies pain. Pt confirms the urge to self harm. He says, I Just want to hurt myself and no one else. I mean like to burn myself with cigarettes or cut, not like to . He says my girlfriend made me hate my face. Only ugly people get cheated on. She is but the baby is not mine. Pt has stayed in the dayroom all shift, fell asleep on the floor. Staff woke him up to get him to bed and noticed that the television remote was missing. Pt keeps taking remote to his room or placing it in his shirt pocket. He did surrender it to staff without incident. Will continue to monitor this pt.
[2020-04-02 05:57] VITALS: BP 112/75; PULSE 54; RESP 16; TEMP 36.4; O2SAT 96
[2020-04-02] MEDS: escitalopram 10 mg Tablet PO (09:42)
[2020-04-02] MEDS: lithium carbonate 150 mg Capsule 450 MG PO ×2 (09:42→21:47)
--- NOTE | 2020-04-02 13:08 | PM.NPN ---
Subjective NPU Subjective: Interval history: Mario Alberto presents today a little less irritable than yesterday and seemingly much more accepting of the idea of returning to [place] and some longer term sober living environment. He is taking his medication without challenge and does acknowledge finally that he may have been missing doses of the lithium when he left which is supported by his 0.1 lithium level. We discussed that would take a little time for the lithium to get back to where it was before discharge. No reference is made to his girlfriend or some of the other questionable historical attestations that he has made. He reports that he is sleeping more to avoid getting into any trouble. Mental Status Exam MSE Comments: This is a slender white male looking younger than his stated age, in hospital scrubs with adequate grooming and eye contact. No abnormal movement except for psychomotor retardation. Cooperative exam in no acute distress. Speech was more normal rate and volume. Mood described as depressed, affect less irritable. Thought process organized. Thought content: Patient endorsed some suicidal but denied homicidal ideation, there were no delusions reported or noted, he denied any auditory or visual hallucinations. Attention and concentration were mostly intact and memory appeared unreliable but none were formally tested. He is alert and oriented x3. Insight and judgment are impaired, impulse control is impaired. Vitals/I&O/Wt Last Vital Signs Temp 98.6 F 04/02/20 20:11 Pulse 84 04/02/20 20:11 Resp 19 H 04/02/20 20:11 BP 119/68 04/02/20 20:11 Pulse Ox 96 04/02/20 20:11 Data NPU : 03/30/20 18:07 03/30/20 18:07 A&P Additional A&P Information (1) Suicidal ideation: (2) Bipolar disorder: (3) Polysubstance abuse: (4) Marijuana abuse: (5) Methamphetamine abuse: This is a 24-year-old white male with a history of addiction and mood dysregulation with recent hospitalization who presents with active use and reports of depression and suicidal thinking. 1. Continue current medication. 2. Continue every 15 minute checks for safety. 3. Encourage individual, group and milieu therapy. 4. Encourage discharge to sober living treatment at the highest level of care to which he is willing to commit. Involuntary Hold Information 96 Hour Hold: 96 Hour Involuntary Admission: No Attestations NPU Medical Necessity Statement*: Inpatient hospitalization is medically necessary and the clinically appropriate intervention at this time. We will monitor medications and make changes as indicated. Likely length of stay 3 to 5 days. Coding Level of Care Code Acute Mold Bunch Trimmer for Farideh Moreno
[2020-04-02 13:28] VITALS: BP 110/57; PULSE 66; RESP 18; TEMP 37.1; O2SAT 97
[2020-04-02 20:11] VITALS: BP 119/68; PULSE 84; RESP 19; TEMP 37; O2SAT 96
[2020-04-02] MEDS: hyDROXYzine 25 mg Capsule 50 MG PO (21:47)
[2020-04-03 06:00] VITALS: BP 118/76; PULSE 63; RESP 17; TEMP 37.1; O2SAT 97
[2020-04-03] MEDS: escitalopram 10 mg Tablet PO (08:50)
[2020-04-03] MEDS: lithium carbonate 150 mg Capsule 450 MG PO ×2 (08:50→21:13)
[2020-04-03 13:44] VITALS: BP 122/78; PULSE 68; RESP 18; TEMP 36.3; O2SAT 96
--- NOTE | 2020-04-03 17:43 | P.PN_ITS ---
Subjective NPU Subjective: Interval history: Mario Alberto presents today reporting that things are going okay. He started to feel a little better and feel more optimistic about the plan for getting to a [facility] program in [place] on Monday. He denies any side effects from the medication. He reports he is eating better and sleeping a little better as well. Mental Status Exam MSE Comments: This is a slender white male looking younger than his stated age, in hospital scrubs with adequate grooming and eye contact. No abnormal movement except for psychomotor retardation. Cooperative exam in no acute distress. Speech was more normal rate and volume. Mood described as a little better, affect less irritable. Thought process organized. Thought content: Patient reported resolving suicidal but denied homicidal ideation, there were no delusions reported or noted, he denied any auditory or visual hallucinations. Attention and concentration were mostly intact and memory appeared unreliable bu t none were formally tested. He is alert and oriented x3. Insight and judgment are impaired, impulse control is impaired. Vitals/I&O/Wt Last Vital Signs Temp 98.0 F 04/03/20 20:53 Pulse 80 04/03/20 20:53 Resp 18 04/03/20 20:53 BP 125/85 04/03/20 20:53 Pulse Ox 97 04/03/20 20:53 Data NPU : 03/30/20 18:07 03/30/20 18:07 A&P Additional A&P Information (1) Suicidal ideation: (2) Bipolar disorder: (3) Polysubstance abuse: (4) Marijuana abuse: (5) Methamphetamine abuse: This is a 24-year-old white male with a history of addiction and mood dysregulation with recent hospitalization who presents with active use and reports of depression and suicidal thinking. 1. Continue current medication. 2. Continue every 15 minute checks for safety. 3. Encourage individual, group and milieu therapy. 4. Encourage discharge to sober living treatment at the highest level of care to which he is willing to commit. 5. Plan to discharge to [facility] in [place] on Monday. Involuntary Hold Information 96 Hour Hold: 96 Hour Involuntary Admission: No Attestations NPU Medical Necessity Statement*: Inpatient hospitalization is medically necessary and the clinically appropriate intervention at this time. We will monitor me dications and make changes as indicated. Plan for discharge on Monday. Coding Level of Care Code Acute Senior Support Analyst for Farideh Moreno
[2020-04-03 20:53] VITALS: BP 125/85; PULSE 80; RESP 18; TEMP 36.7; O2SAT 97
[2020-04-04 06:00] VITALS: BP 119/68; PULSE 74; RESP 18; TEMP 36.8; O2SAT 98
[2020-04-04] MEDS: escitalopram 10 mg Tablet PO (08:56)
[2020-04-04] MEDS: lithium carbonate 150 mg Capsule 450 MG PO ×2 (08:56→20:30)
[2020-04-04 14:00] VITALS: BP 136/85; PULSE 84; RESP 20; TEMP 36.8; O2SAT 97
--- NOTE | 2020-04-04 17:56 | P.PN_ITS ---
Subjective NPU Subjective: Interval history: Mario Alberto presents today reporting that he is happy about the [facility] program but also has ideas of his own at the [facility] programming does not owen out. He continued to discuss his girlfriend and the circumstances of her telling him that the child was not his. He continues to report that he is done at that relationship even though she has made attempts to reach him here and through his family. He reports that he is doing about the medication and adjusting again without side effects. We continued to discuss discharge on Monday. Mental Status Exam MSE Comments: This is a slender white male looking younger than his stated age, in hospital scrubs with adequate grooming and eye contact. No abnormal movement except for resolving psychomotor retardation. Cooperative exam in no acute distress. Speech was more normal rate and volume. Mood described as better, affect brighter. Thought process organized. Thought content: Patient denied suicidal or homicidal ideation, there were no delusions reported or noted, he denied any auditory or visual hallucinations. Attention and concentration were mostly intact and memory appeared unreliable but none were formally tested. He is alert and oriented x3. Insight and judgment are limited but improving, impulse control is impaired. Vitals/I&O/Wt Last Vital Signs Temp 98.9 F 04/04/20 14:00 Pulse 65 04/04/20 14:00 Resp 17 04/04/20 14:00 BP 130/71 04/04/20 14:00 Pulse Ox 97 04/04/20 14:00 Weight last 48 hrs Weight Data NPU : 03/30/20 18:07 03/30/20 18:07 A&P Additional A&P Information Additional A&P Information (1) Suicidal ideation: (2) Bipolar disorder: (3) Polysubstance abuse: (4) Marijuana abuse: (5) Methamphetamine abuse: This is a 24-year-old white male with a history of addiction and mood dysregulation with recent hospitalization who presents with active use and repo rts of depression and suicidal thinking. 1. Continue current medication. 2. Continue every 15 minute checks for safety. 3. Encourage individual, group and milieu therapy. 4. Encourage discharge to sober living treatment at the highest level of care to which he is willing to commit. 5. Plan to [facility] [place] on Monday. Involuntary Hold Information 96 Hour Hold: 96 Hour Involuntary Admission: No Attestations NPU Medical Necessity Statement*: Inpatient hospitalization is medically necessary and the clinically appropriate intervention at this time. We will monitor medications and make changes as indicated. Plan for discharge on Monday. Coding Level of Care Code Acute Occupational Medicine Physician for Farideh Moreno
[2020-04-04 20:08] VITALS: BP 123/76; PULSE 91; RESP 19; TEMP 36.8; O2SAT 96
[2020-04-05 05:59] VITALS: BMI 21.4
[2020-04-05 06:00] VITALS: BP 130/71; PULSE 65; RESP 17; TEMP 37.2; O2SAT 97
[2020-04-05] MEDS: escitalopram 10 mg Tablet PO (08:33)
[2020-04-05] MEDS: lithium carbonate 150 mg Capsule 450 MG PO ×2 (08:33→21:35)
--- NOTE | 2020-04-05 10:00 | PM.NPN ---
Subjective NPU Subjective: Interval history: Mario Alberto presents today reporting that he is feeling better and more optimistic. He continues to have fairly robust ideas but is reporting that he identifies his sobriety is a grant element in things being well. He reports a huge part of him making the decisions that he made prior to admission was the situation surrounding this girlfriend reports he is not returning to her. He reports that he is having no side effects from the medication. We agreed to get a lithium level and plan for discharge in the morning. He did lobby to get discharged today as he is focused on his birthday on Monday and wanting to have some time to enjoy his birthday. We focused on future birthdays and try to get him to understand that the celebration will be his wellness Mental Status Exam MSE Comments: This is a slender white male looking younger than his stated age, in hospital scrubs with adequate grooming and eye contact. No abnormal movements. Cooperative exam in no acute distress. Speech was more normal rate and volume. Mood described as pretty good, affect brighter. Thought process organized. Thought content: Patient denied suicidal or homicidal ideation, there were no delusions reported or noted, he denied any auditory or visual hallucinations. Attention and concentration were mostly intact and memory appeared unreliable but none were formally tested. He is alert and oriented x3. Insight and judgment are improving, impulse control is impaired. Vitals/I&O/Wt Last Vital Signs Temp 98.9 F 04/05/20 06:00 Pulse 65 04/05/20 06:00 Resp 17 04/05/20 06:00 BP 130/71 04/05/20 06:00 Pulse Ox 97 04/05/20 06:00 Weight last 48 hrs Weight 65.771 kg Data NPU : 03/30/20 18:07 03/30/20 18:07 A&P Additional A&P Information Additional A&P Information (1) Suicidal ideation: (2) Bipolar disorder: (3) Polysubstance abuse: (4) Marijuana abuse: (5) Methamphetamine abuse: This is a 24-year-old white male with a history of addiction and mood dysregulation with recent hospitalization who presents with active use and reports of depression and suicidal thinking. 1. Continue current medication. 2. Continue every 15 minute checks for safety. 3. Encourage individual, group and milieu therapy. 4. Encourage discharge to sober living treatment at the highest level of care to which he is willing to commit. 5. Plan to [facility] in [place] tomorrow morning. Involuntary Hold Information 96 Hour Hold: 96 Hour Involuntary Admission: No Attestations NPU Medical Necessity Statement*: Inpatient hospitalization is medically necessary and the clinically appropriate intervention at this time. We will monitor medications and make changes as indicated. Plan for discharge in the morning. Coding Level of Care Code Acute Telemarketing Agent for Farideh Moreno
[2020-04-05 14:00] VITALS: BP 136/78; PULSE 82; RESP 18; TEMP 36.8
--- NOTE | 2020-04-05 20:24 | PC.NURSE ---
WAITING TO GET LABS DRAWN , SAYS HOPES TO GET RIDE HOME. DENIES WANTING TO HARM SELF OR OTHERS.
[2020-04-05 21:29] VITALS: BP 146/88; PULSE 80; RESP 19; TEMP 37.3; O2SAT 96
[2020-04-05] MEDS: hyDROXYzine 25 mg Capsule 50 MG PO (21:35)
[2020-04-06 06:00] VITALS: BP 130/77; PULSE 74; RESP 19; TEMP 36.9; O2SAT 96
[2020-04-06] MEDS: lithium carbonate 150 mg Capsule 450 MG PO (08:29)
[2020-04-06] MEDS: escitalopram 10 mg Tablet PO (08:29)
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
[2020-04-06 12:43] VITALS: BP 130/77; PULSE 74; RESP 19; TEMP 36.9; O2SAT 96
[2020-04-06] MEDS: lithium carbonate 150 mg Capsule PO (12:52)
== END 2020-04-06 14:36 | disposition home or self-care (01) | DRG 885 ==
LOC: ER 18:52 → NP 19:25
PROVIDERS: Family Medicine; Admitting Provider Psychiatry & Neurology Psychiatry; Emergency Provider Emergency Medicine; Visit Provider Psychiatry & Neurology Psychiatry
DX: F31.9 Bipolar disorder, unspecified (principal); R45.851 Suicidal ideations; Z81.8 Family history of other mental and behavioral disorders; F17.210 Nicotine dependence, cigarettes, uncomplicated; F10.10 Alcohol abuse, uncomplicated; F12.10 Cannabis abuse, uncomplicated; F15.10 Other stimulant abuse, uncomplicated
CPT/HCPCS: 12345; 36415; 80053; 80178; 80306; 80307; 81001; 85025; 99284

== ENCOUNTER 2020-05-13 16:36 | Inpatient (IN) | payer MEDICAID, SELFPAY ==
[2020-05-13 16:39] VITALS: BP 112/71; PULSE 93; RESP 18; TEMP 36.9; O2SAT 98; BMI 19.9
--- NOTE | 2020-05-13 17:16 | PC.NURSE ---
[facility] took pt dab container during dressing into paper scrubs. Pt placed in scrubs, belongings taken, placed in belonging bags and labeled. Pt belongings placed in filing cabinet. Sitter and [facility] at bedside.
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
[2020-05-13 17:39] LABS: Basophils # 0.1 10^3/uL (0.0-0.1); Basophils % 0.9 %; Eosinophils # 0.3 10^3/uL (0.0-0.8); Eosinophils % 4.6 %; Hematocrit 42.5 % (42.0-52.0); Hemoglobin 14.5 g/dL (11.7-16.6); Lymphocytes # 2.6 10^3/uL (0.8-4.8); Mean Corpuscular HGB Conc 34.1 g/dL (30.0-36.0); Mean Corpuscular Hemoglobin 28.6 pg (28.0-34.0); Mean Corpuscular Volume 83.8 fL (80-94); Mean Platelet Volume 8.8 fL (7.4-10.4); Monocytes # 0.6 10^3/uL (0.2-0.9); Monocytes % 9.3 %; Neutrophils # 3.31 10^3/uL (1.8-7.7); Neutrophils % 47.9 %; Nucleated Red Blood Cells % 0 %; Platelet Count 352 10^3/cmm (130-400); Red Blood Count 5.07 10^6/uL (4.1-5.3); Red Cell Distribution Width 12.9 % (12.1-15.1); White Blood Count 6.9 10^3/uL (4.0-10.0)
[2020-05-13 17:50] LABS: Alanine Aminotransferase 20 U/L (0-41); Alkaline Phosphatase 87 IU/L (40-130); Anion Gap 12.2 (5-19); Aspartate Amino Transferase 15 U/L (0-40); Blood Urea Nitrogen 13 mg/dL (6-20); Calcium 8.7 mg/dL (8.5-10.5); Carbon Dioxide 28 mmol/L (22-29); Chloride 102 mmol/L (98-107); Globulin 2.9 g/dL (1.3-4.6); Glomerular Filtration Rate 139.8 mL/min (90-130); Glucose 88 mg/dL (65-115); Osmolality Calculated 286 mOsm/kg (285-295); Potassium 4.2 mmol/L (3.5-5.1); Sodium 138 mmol/L (136-145); Total Bilirubin 0.2 mg/dL (0.15-1.2); Total Protein 6.9 g/dL (6.6-8.7)
[2020-05-13 17:55] LABS: Acetaminophen < 5.0 ug/mL (10-30); Alcohol Level < 10 mg/dL (0-10); Salicylate < 0.3 mg/dL (3-10)
[2020-05-13 18:13] LABS: Lithium 0.1 mmol/L (0.6-1.2)
--- NOTE | 2020-05-13 19:01 | PC.NURSE ---
report received from TAMMY BUTCHER and care transferred to TAMMY De Santiago
[2020-05-13 19:05] LABS: Add Urine Microscopic? NO
[2020-05-13 19:06] LABS: Urine Appearance Clear (CLEAR); Urine Color Yellow (Yellow); pH Urine 6.5 (5-7)
[2020-05-13 19:07] LABS: Bilirubin Urine Neg (Negative); Blood Urine Neg (Negative); Glucose Urine UA Norm (Normal); Ketones Urine Negative (Negative); Leukocyte Esterase Urine Negative (Negative); Nitrate Urine Negative (Negative); Protein Urine Neg (Negative); Urobilinogen Urine Norm (Negative)
[2020-05-13 19:23] LABS: Amphetamines Screen Urine Positive (Negative); Barbiturates Screen Urine Negative (Negative); Benzodiazepines Screen Urine Negative (Negative); Cocaine Screen Urine Negative (Negative); Opiate Screen Urine Negative (Negative); PCP Screen Urine Negative (Negative); THC Screen Urine Positive (Negative)
[2020-05-13 21:15] VITALS: PULSE 66; RESP 16; O2SAT 99
[2020-05-13 21:22] VITALS: BP 95/64; PULSE 69; RESP 16; O2SAT 98
[2020-05-13 21:40] VITALS: BP 123/82; PULSE 77; RESP 18; TEMP 36.8; O2SAT 98
[2020-05-13 21:46] VITALS: BP 123/82; PULSE 77; RESP 18; TEMP 36.8; O2SAT 98
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
[2020-05-14 06:00] VITALS: BP 108/49; PULSE 68; RESP 18; TEMP 36.7; O2SAT 98
[2020-05-14] MEDS: escitalopram 10 mg Tablet PO (09:19)
[2020-05-14] MEDS: lithium carbonate 300 mg Capsule 600 MG PO (09:19)
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
[2020-05-14 14:00] VITALS: BP 101/46; PULSE 66; RESP 16; TEMP 36.8; O2SAT 95
[2020-05-14 20:30] VITALS: BP 123/75; PULSE 77; RESP 19; TEMP 36.7; O2SAT 98
[2020-05-14] MEDS: OLANZapine 5 mg TABLET 2.5 MG PO (21:34)
[2020-05-15 06:00] VITALS: BP 113/61; PULSE 61; RESP 18; TEMP 36.6; O2SAT 97
[2020-05-15] MEDS: escitalopram 10 mg Tablet PO (08:40)
[2020-05-15] MEDS: OLANZapine 5 mg TABLET 2.5 MG PO (08:40)
[2020-05-15 14:00] VITALS: BP 98/57; PULSE 54; RESP 18; TEMP 36.5; O2SAT 97
--- NOTE | 2020-05-15 16:52 | P.PN_ITS ---
Subjective NPU Subjective: Interval history: Patient mostly lying in bed throughout day, participating in milieu occasionally to include eating meals Patient reports tolerating medication well with no reported medication side effects Patient stating that he feels down, sad today because of many losses from his family, reports occasional passive suicidal thoughts with no active intent or plan He denies any auditory or visual destinations Mental Status Exam MSE Comments: Lying in his bed, tired appearing, calm, cooperative, good eye contact Psychomotor activity is somewhat decreased, no agitation Speech is normal rate and volume, spontaneous, fair articulation, not pressured I feel depressed, constricted affect, not labile Alert and oriented to person, place, time, situation Memory and concentration is fair to intact per interview Thought process, linear, no flight of ideas Thought content, no delusions, does not appear to be attending to any internal stimuli, passive suicidal thoughts with no active intent or plan, no homicidal ideation Insight and judgment appear to be fair Vitals/I&O/Wt Last Vital Signs Temp 97.7 F 05/15/20 14:00 Pulse 54 L 05/15/20 14:00 Resp 18 05/15/20 14:00 BP 98/57 05/15/20 14:00 Pulse Ox 97 05/15/20 14:00 Data NPU : 05/13/20 17:24 05/13/20 17:24 A&P Assessment and plan (1) Bipolar disorder: Status: Acute Qualifiers: Active/Remission status: currently active Current bipolar episode type: mixed Current episode severity: severe Psychotic features: without psychotic features Qualified Code(s): F31.63 - Bipolar disorder, current episode mixed, severe, without psychotic features (2) Polysubstance abuse: Status: Acute Additional A&P Information Reports ongoing depressive symptoms with passive suicidal thoughts with no active intent or plan, continues to report significant impairment secondary to his symptoms INCREASED to olanzapine 5 mg twice daily targeting mood CONTINUE other medications, continue to monitor Continue to encourage patient to participate in unit activities to include group sessions, unit milieu Involuntary Hold Information 96 Hour Hold: 96 Hour Involuntary Admission: Yes 96 Hour Hold Ending Date: 05/19/20 96 Hour Hold Ending Time: 18:00 Attestations NPU Medical Necessity Statement*: Requires psychiatric hospitalization for medication stabilization Coding Level of Care Code Acute Hogshead Builder for Farideh Moreno Diagnoses Bipolar disorder F31.63 Active/Remission status: currently active Current bipolar episode type: mixed Current episode severity: severe Psychotic features: without psychotic features Polysubstance abuse F19.10
--- NOTE | 2020-05-15 17:45 | PC.RESP ---
Smoking Cessation information sent to patient.
[2020-05-15 20:04] VITALS: BP 111/65; PULSE 58; RESP 18; TEMP 36.9; O2SAT 98
[2020-05-15] MEDS: OLANZapine 5 mg TABLET PO (20:50)
[2020-05-15] MEDS: acetaminophen 325 mg Tablet 650 MG PO (20:55)
[2020-05-16 06:00] VITALS: BP 123/70; PULSE 72; RESP 15; TEMP 36.8; O2SAT 98
[2020-05-16] MEDS: OLANZapine 5 mg TABLET PO ×2 (09:13→21:07)
[2020-05-16] MEDS: escitalopram 10 mg Tablet PO (09:13)
[2020-05-16 14:00] VITALS: BP 112/59; PULSE 57; RESP 18; TEMP 36.1; O2SAT 94
--- NOTE | 2020-05-16 14:22 | P.PN_ITS ---
Subjective NPU Subjective: Interval history: Continues to report significant depressive symptoms, intermittent passive suicidal ideation with no active intent or plan Denies any interval manic symptoms Denies any interval psychotic symptoms Reports appetite is good Reports sleep has been fair Continues to be compliant with medication and no reported medication side effects No reported interval behavioral disturbances Mental Status Exam MSE Comments: Lying in his bed, calm, cooperative, good eye contact Psychomotor activity is decreased, no agitation Speech is normal rate and volume, spontaneous, fair articulation, not pressured I still feel pretty depressed, constricted affect, not labile Alert and oriented to person, place, time, situation Memory and concentration is fair to intact per interview Thought process, linear, no flight of ideas Thought content, no delusions, does not appear to be attending to any internal stimuli, passive suicidal thoughts with no active intent or plan, no homicidal ideation Insight and judgment appear to be fair Vitals/I&O/Wt Last Vital Signs Temp 98.3 F 05/16/20 06:00 Pulse 72 05/16/20 06:00 Resp 15 05/16/20 06:00 BP 123/70 05/16/20 06:00 Pulse Ox 98 05/16/20 06:00 Data NPU : 05/13/20 17:24 05/13/20 17:24 A&P Assessment and plan (1) Bipolar disorder: Status: Acute Qualifiers: Active/Remission status: currently active Current bipolar episode type: mixed Current episode severity: severe Psychotic features: without psychotic features Qualified Code(s): F31.63 - Bipolar disorder, current episode mixed, severe, without psychotic features (2) Polysubstance abuse: Status: Acute Additional A&P Information Continues to report significant depressive symptoms, significant impairment secondary to symptoms, passive suicidal ideation CONTINUE current medication, continue to monitor Continue to encourage patient to participate in unit activities to include unit milieu Involuntary Hold Information 96 Hour Hold: 96 Hour Involuntary Admission: Yes 96 Hour Hold Ending Date: 05/19/20 96 Hour Hold Ending Time: 18:00 Attestations NPU Medical Necessity Statement*: Continues to require psychiatric hospitalization for medication stabilization Coding Level of Care Code Acute Applicator Sprayer for Farideh Fwanitha Diagnoses Bipolar disorder F31.63 Active/Remission status: currently active Current bipolar episode type: mixed Current episode severity: severe Psychotic features: without psychotic features Polysubstance abuse F19.10
[2020-05-16 21:36] VITALS: BP 120/62; PULSE 52; RESP 17; TEMP 36.6; O2SAT 97
[2020-05-17 06:00] VITALS: BP 110/66; PULSE 57; RESP 15; TEMP 36.6; O2SAT 97
[2020-05-17] MEDS: escitalopram 10 mg Tablet PO (07:50)
[2020-05-17] MEDS: OLANZapine 5 mg TABLET PO ×2 (07:50→20:49)
[2020-05-17 14:00] VITALS: BP 118/66; PULSE 75; RESP 18; TEMP 36.2; O2SAT 96
--- NOTE | 2020-05-17 14:28 | PM.NPN ---
Subjective NPU Subjective: Interval history: Continues to report intermittent depressive symptoms, reports some interval passive suicidal ideation no active intent or plan Denies any interval psychotic symptoms, denies any auditory or visual hallucinations, denies any delusions Reports appetite has been good Reports sleep has been fair Reports being compliant with medication and denies any medication side effects Mental Status Exam MSE Comments: Sitting up on his bed, tired appearing, calm, cooperative, good eye contact Psychomotor activity is somewhat decreased, no agitation Speech is normal rate and volume, spontaneous, fair articulation, not pressured I feel depressed, constricted affect, not labile Alert and oriented to person, place, time, situation Memory and concentration is fair to intact per interview Thought process, linear, no flight of ideas Thought content, no delusions, no hallucinations, no homicidal ideation Insight and judgment appear to be fair Vitals/I&O/Wt Last Vital Signs Temp 97.9 F 05/17/20 06:00 Pulse 57 L 05/17/20 06:00 Resp 15 05/17/20 06:00 BP 110/66 05/17/20 06:00 Pulse Ox 97 05/17/20 06:00 Weight last 48 hrs Weight 61.235 kg Data NPU : 05/13/20 17:24 05/13/20 17:24 A&P Assessment and plan (1) Bipolar disorder: Status: Acute Qualifiers: Active/Remission status: currently active Current bipolar episode type: mixed Current episode severity: severe Psychotic features: without psychotic features Qualified Code(s): F31.63 - Bipolar disorder, current episode mixed, severe, without psychotic features (2) Polysubstance abuse: Status: Acute Additional A&P Information Continues to report depressive symptoms, passive suicidal ideation, no interval psychotic symptoms CONTINUE current medication, continue to monitor Involuntary Hold Information 96 Hour Hold: 96 Hour Involuntary Admission: Yes 96 Hour Hold Ending Date: 05/19/20 96 Hour Hold Ending Time: 18:00 Attestations NPU Medical Necessity Statement*: Continues to require psychiatric hospitalization for medication stabilization Coding Level of Care Code Acute Lead Generation Representative for Farideh Moreno Diagnoses Bipolar disorder F31.63 Active/Remission status: currently active Current bipolar episode type: mixed Current episode severity: severe Psychotic features: without psychotic features Polysubstance abuse F19.10
[2020-05-17 19:59] VITALS: BP 121/77; PULSE 80; RESP 20; TEMP 36.2; O2SAT 98
[2020-05-18 06:00] VITALS: BP 130/68; PULSE 73; RESP 18; TEMP 36.2; O2SAT 98
[2020-05-18] MEDS: OLANZapine 5 mg TABLET PO ×2 (08:32→20:30)
[2020-05-18] MEDS: escitalopram 10 mg Tablet PO (08:32)
--- NOTE | 2020-05-18 12:07 | P.PN_ITS ---
Subjective NPU Subjective: Interval history: Reports intermittent depressive symptoms, reports some improvement Denies any interval suicidal ideation Denies any interval auditory or visual hallucinations, denies any delusions Reports having a good appetite Reports improved sleep States he has been compliant with his medication, denies any medication side effects Mental Status Exam MSE Comments: Lying in bed, calm, cooperative, good eye contact Psychomotor activity is neither increased nor decreased, no agitation Speech is normal rate and volume, spontaneous, fair articulation, not pressured I feel little better, constricted affect, not labile Alert and oriented to person, place, time, situation Memory and concentration is fair to intact per interview Thought process, linear, no flight of ideas Thought content, no delusions, no hallucinations, no homicidal ideation Insight and judgment appear to be fair Vitals/I&O/Wt Last Vital Signs Temp 97.2 F L 05/18/20 06:00 Pulse 73 05/18/20 06:00 Resp 18 05/18/20 06:00 BP 130/68 05/18/20 06:00 Pulse Ox 98 05/18/20 06:00 Weight last 48 hrs Weight 61.235 kg Data NPU : 05/13/20 17:24 05/13/20 17:24 A&P Assessment and plan (1) Bipolar disorder: Status: Acute Qualifiers: Active/Remission status: currently active Current bipolar episode type: mixed Current episode severity: severe Psychotic features: without psychotic features Qualified Code(s): F31.63 - Bipolar disorder, current episode mixed, severe, without psychotic features (2) Polysubstance abuse: Status: Acute Additional A&P Information Intermittent depressive symptoms, reports some improvement, no interval to suicidal ideation, tolerating medication CONTINUE current medication, continue to monitor Continue to encourage participating in unit milieu, group sessions Involuntary Hold Information 96 Hour Hold: 96 Hour Involuntary Admission: Yes 96 Hour Hold Ending Date: 05/19/20 96 Hour Hold Ending Time: 18:00 Attestations NPU 2 Medical Necessity Statement*: Continues to require psychiatric hospitalization for medication stabilization Coding Level of Care Code Acute District Sales Manager for Farideh Moreno Diagnoses Bipolar disorder F31.63 Active/Remission status: currently active Current bipolar episode type: mixed Current episode severity: severe Psychotic features: without psychotic features Polysubstance abuse F19.10
[2020-05-18 14:00] VITALS: BP 131/75; PULSE 95; RESP 20; TEMP 35.7; O2SAT 98
[2020-05-18 20:43] VITALS: BP 128/89; PULSE 94; RESP 18; TEMP 36.7; O2SAT 99
[2020-05-19 06:00] VITALS: BP 119/73; PULSE 60; RESP 18; TEMP 36.9; O2SAT 98
[2020-05-19] MEDS: escitalopram 10 mg Tablet PO (08:18)
[2020-05-19] MEDS: OLANZapine 5 mg TABLET PO (08:18)
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
[2020-05-19 13:41] VITALS: BP 119/73; PULSE 60; RESP 18; TEMP 36.9; O2SAT 98
[2020-05-19 13:47] VITALS: BP 120/67; PULSE 89; RESP 16; TEMP 36.8; O2SAT 96
== END 2020-05-19 15:27 | disposition home or self-care (01) | DRG 885 ==
LOC: ER 20:29 → NP 21:06
PROVIDERS: Admitting Provider Psychiatry & Neurology Psychiatry; Emergency Provider Nurse Practitioner Family; Visit Provider Psychiatry & Neurology Psychiatry
DX: F31.63 Bipolar disorder, current episode mixed, severe, without psychotic features (principal); R45.851 Suicidal ideations; F19.10 Other psychoactive substance abuse, uncomplicated; F17.210 Nicotine dependence, cigarettes, uncomplicated
CPT/HCPCS: 12345; 80053; 80178; 80306; 80307; 81003; 84443; 85025; 99284

== ENCOUNTER 2020-05-24 19:26 | Emergency (ER) | payer MEDICAID, SELFPAY ==
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
[2020-05-24 19:32] VITALS: BP 142/77; PULSE 84; RESP 18; TEMP 36.6; O2SAT 100; BMI 22.1
--- NOTE | 2020-05-24 19:42 | PC.NURSE ---
Pt laid flat and rigid cervical dowd applied due to cervical spine pain.
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
[2020-05-24 21:04] VITALS: PULSE 88; RESP 18; O2SAT 97
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
[2020-05-24 21:40] VITALS: RESP 16; O2SAT 99
[2020-05-24] MEDS: oxyCODONE-APAP 5-325 mg Tablet 2 TAB PO (21:40)
[2020-05-24 21:45] VITALS: BP 134/76; PULSE 71; RESP 18; O2SAT 99
== END 2020-05-24 21:47 | disposition home or self-care (01) ==
PROVIDERS: Emergency Provider Emergency Medicine
DX: S06.0X0A Concussion without loss of consciousness, initial encounter (principal); S00.83XA Contusion of other part of head, initial encounter; F17.210 Nicotine dependence, cigarettes, uncomplicated; Y04.2XXA Assault by strike against or bumped into by another person, initial encounter
CPT/HCPCS: 70450; 70486; 71045; 72125; 99283

== ENCOUNTER 2020-08-15 21:30 | Inpatient (IN) | payer MEDICAID, SELFPAY ==
[2020-08-15 21:30] VITALS: BP 121/76; PULSE 100; RESP 18; TEMP 37.1; O2SAT 97; BMI 22.1
[2020-08-15 21:54] LABS: Add Urine Microscopic? NO; Charge for UA Resulting for Rev
[2020-08-15] MEDS: ziprasidone 20 mg/mL SDV IM (21:55)
[2020-08-15] MEDS: LORazepam 2 mg/mL INJ 1 mL IM (21:55)
[2020-08-15] MEDS: water for injection-sterile 10 ML (21:55)
--- NOTE | 2020-08-15 21:58 | ED_ITS ---
HPI - Psych General: Chief Complaint: Psychiatric Symptoms Stated Complaint: MHE Time Seen by Provider: 08/15/20 21:38 History of Present Illness: HPI Narrative: 25-year-old male with a history of bipolar disorder. He states he has been off of his mood stabilizers for a bit now. He has been having suicidal thoughts today and this evening. He notes that he has cut himself in the throat on prior occasions, and would have done so tonight if he had a knife. He states he is having a schizophrenic attack . He requests admission to the [facility] because of his suicidal ideation. He called the ambulance aixa. complaint: suicidal ideation and other Onset (ago): hour(s) Duration: constant History of same: Yes Relieving factors: none Exacerbating factors: none Associated psychiatric symptoms: depression, suicidal ideation and auditory hallucinations Associated symptoms: Reports auditory hallucinations and suicidal ideation If self harm: admits thoughts of self harm and has plan Review of Systems Const: Denies: fever(s) or chills Eyes: Denies: change in vision Card: Denies: chest pain Resp: Denies: dyspnea, productive cough or non-productive cough GI: Denies: abdominal pain, nausea or vomiting Musc: Reports: other (Left hand pain after punching a metal rack) Neuro: Reports: behavioral changes; Denies: headache(s) Psych: Reports: auditory hallucinations and suicidal ideation [facility] ED PFSH: Medical History Alcohol abuse Marijuana abuse Polysubstance abuse Surgical History H/O peritonsillar abscess drainage No pertinent past surgical history Family History Denies family history of Cancer Social History Smoking and tobacco status: current every day smoker cigarettes Alcohol intake: current Alcohol intake frequency: few times a week Physical Exam Const: COMMON NORMALS: alert EXAM LIMITATIONS: behavioral limitations GENERAL APPEARANCE: cooperative and disheveled ORIENTATION/CONSCIOUSNESS: Yes awake, Yes oriented to person and Yes oriented to place; not oriented to time Eye: COMMON NORMALS: Equal, round and reactive pupils present and EOMs intact bilaterally PUPIL: Yes Equal, round and reactive pupils present Chest: COMMONS NORMALS: normal inspection of the chest Resp: COMMON NORMALS: normal respiratory effort, No retractions, No use of accessory muscles and clear to auscultation bilaterally AUSCULTATION: clear to auscultation bilaterally Cardio: COMMON NORMALS: regular rate, regular rhythm and No murmurs present (Cardio) RATE: regular rate RHYTHM: regular rhythm GI: COMMON NORMALS: Normal to inspection, nondistended, normoactive bowel sounds present, Soft to palpation and non-tender PALPATION: Yes Soft to palpation Neuro: SENSORIUM/ORIENTATION: Yes alert, Yes oriented to person, Yes oriented to place and No oriented to time Psych: COMMON NORMALS: cooperative APPEARANCE: Yes unkempt ATTITUDE: Yes agitated ACTIVITY/MOTOR BEHAVIOR: Yes psychomotor agitation and Yes fidgeting SPEECH: Yes excessive, Yes rapid and Yes Pressured speech present MOOD & AFFECT: Yes fearful THOUGHT PROCESS: Flight of ideas present THOUGHT CONTENT: Yes Suicidality present ATTENTION/CONCENTRATION: Yes attention grossly intact and Yes concentration grossly impaired MEMORY/COGNITION: Yes memory grossly intact and Yes cognition grossly intact INSIGHT: Limited insight present (Psych) JUDGEMENT: Fair judgement present (Psych) Face to Face: Restrn/Seclusion Events leading up to initiation: Verbalizing threat to self or others (to self) Evaluation of patient's immediate situation: Signs of psychological distress Patient reaction since intervention applied: De-escalation/no displays of violent/destructive behavior Recent labs reviewed: No (will review on availability ) Review of medications: Yes Need for restraint or seclusion is: No longer present Attending notified: Attending completed assessment Course Consultations: Consultation #1: mary Time: 22:57 Vital Signs: Vital signs: Vital Signs Temperature 98.7 F 08/15/20 21:30 Pulse Rate 100 08/15/20 21:30 Respiratory Rate 18 08/15/20 21:30 Blood Pressure 121/76 08/15/20 21:30 Pulse Oximetry 97 08/15/20 21:30 MDM - Psych MDM Narrative: Medical decision making narrative: Patient is medically stable. Positive drug screen for marijuana and methamphetamine. Labs otherwise are essentially normal. He will be placed on a 96-hour hold as he is suicidal. At this point, he is willing to be admitted. Lab Data: Labs: Lab Results 08/15/20 08/15/20 08/15/20 Range/Units 21:48 21:48 21:55 WBC 8.1 (4.0-10.0) 10^3/ uL RBC 5.03 (4.1-5.3) 10^6/u L Hgb 14.5 (11.7-16.6) g/dL Hct 42.1 (42.0-52.0) % MCV 83.7 (80-94) fL MCH 28.8 (28.0-34.0) pg MCHC 34.4 (30.0-36.0) g/dL RDW 12.5 (12.1-15.1) % Plt Count 249 (130-400) 10^3/c mm MPV 8.9 (7.4-10.4) fL Neut % (Auto) 53.7 % Lymph % (Auto) 30.9 % [place] % (Auto) 8.9 % Eos % (Auto) 5.7 % Baso % (Auto) 0.7 % Neut # (Auto) 4.32 (1.8-7.7) 10^3/u L Lymph # (Auto) 2.5 (0.8-4.8) 10^3/u L [place] # (Auto) 0.7 (0.2-0.9) 10^3/u L Eos # (Auto) 0.5 (0.0-0.8) 10^3/u L Baso # (Auto) 0.1 (0.0-0.1) 10^3/u L Nucleated RBC % (a uto) 0 % Nucleated RBCs # 0.0 /100WBC Sodium (136-145) mmol/L Potassium (3.5-5.1) mmol/L Chloride (98-107) mmol/L Carbon Dioxide (22-29) mmol/L Anion Gap (5-19) BUN (6-20) mg/dL Creatinine (0.7-1.2) mg/dL GFR Calculation (90-130) mL/min Glucose (65-115) mg/dL Calculated Osmolal ity (285-295) mOsm/k g Calcium (8.5-10.5) mg/dL Total Bilirubin (0.15-1.2) mg/dL AST (0-40) U/L ALT (0-41) U/L Alkaline Phosphata se (40-130) IU/L Total Protein (6.6-8.7) g/dL Albumin (3.5-5.2) g/dL Globulin (1.3-4.6) g/dL Urine Color Yellow (Yellow) Urine Appearance Clear (CLEAR) Urine pH 5 (5-7) Ur Specific Gravit y 1.030 (1.005-1.030) Urine Protein Neg (Negative) Urine Glucose (UA) Norm (Normal) Urine Ketones Negative (Negative) Urine Blood Neg (Negative) Urine Nitrate Negative (Negative) Urine Bilirubin Neg (Negative) Urine Urobilinogen Norm (Negative) mg/dL Ur Leukocyte Yudith ase Negative (Negative) Salicylates (3-10) mg/dL Urine Opiates Scre en Negative (Negative) ng/mL Acetaminophen (10-30) ug/mL Ur Barbiturates Sc reen Negative (Negative) ng/mL Ur Phencyclidine S crn Negative (Negative) ng/mL Ur Amphetamines Sc reen Positive H (Negative) ng/mL U Benzodiazepines Scrn Negative (Negative) ng/mL Urine Cocaine Scre en Negative (Negative) ng/mL U Marijuana (THC) Screen Positive H (Negative) ng/mL Ethyl Alcohol (0-10) mg/dL 08/15/20 Range/Units 21:55 WBC (4.0-10.0) 10^3/ uL RBC (4.1-5.3) 10^6/u L Hgb (11.7-16.6) g/dL Hct (42.0-52.0) % MCV (80-94) fL MCH (28.0-34.0) pg MCHC (30.0-36.0) g/dL RDW (12.1-15.1) % Plt Count (130-400) 10^3/c mm MPV (7.4-10.4) fL Neut % (Auto) % Lymph % (Auto) % [place] % (Auto) % Eos % (Auto) % Baso % (Auto) % Neut # (Auto) (1.8-7.7) 10^3/u L Lymph # (Auto) (0.8-4.8) 10^3/u L [place] # (Auto) (0.2-0.9) 10^3/u L Eos # (Auto) (0.0-0.8) 10^3/u L Baso # (Auto) (0.0-0.1) 10^3/u L Nucleated RBC % (a uto) % Nucleated RBCs # /100WBC Sodium 137 (136-145) mmol/L Potassium 4.2 (3.5-5.1) mmol/L Chloride 102 (98-107) mmol/L Carbon Dioxide 24 (22-29) mmol/L Anion Gap 15.2 (5-19) BUN 14 (6-20) mg/dL Creatinine 0.7 (0.7-1.2) mg/dL GFR Calculation 139.8 H (90-130) mL/min Glucose 88 (65-115) mg/dL Calculated Osmolal ity 284 L (285-295) mOsm/k g Calcium 9.0 (8.5-10.5) mg/dL Total Bilirubin 0.2 (0.15-1.2) mg/dL AST 20 (0-40) U/L ALT 19 (0-41) U/L Alkaline Phosphata se 100 (40-130) IU/L Total Protein 7.2 (6.6-8.7) g/dL Albumin 4.6 (3.5-5.2) g/dL Globulin 2.6 (1.3-4.6) g/dL Urine Color (Yellow) Urine Appearance (CLEAR) Urine pH (5-7) Ur Specific Gravit y (1.005-1.030) Urine Protein (Negative) Urine Glucose (UA) (Normal) Urine Ketones (Negative) Urine Blood (Negative) Urine Nitrate (Negative) Urine Bilirubin (Negative) Urine Urobilinogen (Negative) mg/dL Ur Leukocyte Yudith ase (Negative) Salicylates < 0.3 L (3-10) mg/dL Urine Opiates Scre en (Negative) ng/mL Acetaminophen < 5.0 L (10-30) ug/mL Ur Barbiturates Sc reen (Negative) ng/mL Ur Phencyclidine S crn (Negative) ng/mL Ur Amphetamines Sc reen (Negative) ng/mL U Benzodiazepines Scrn (Negative) ng/mL Urine Cocaine Scre en (Negative) ng/mL U Marijuana (THC) Screen (Negative) ng/mL Ethyl Alcohol < 10 (0-10) mg/dL Discharge Plan Discharge Patient Disposition: Admitted As Inpatient Admit Provider: Rajan Coto Clinical Impression: Suicidal ideation, Methamphetamine abuse Bipolar disorder Qualifiers: Active/Remission status: currently active Current bipolar episode type: depressed Current episode severity: severe Psychotic features: with psychotic features Qualified Code(s): F31.5 - Bipolar disorder, current episode depressed, severe, with psychotic features Condition: Stable Coding Level of Care Code ED 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
[2020-08-15 22:00] LABS: Bilirubin Urine Neg (Negative); Blood Urine Neg (Negative); Glucose Urine UA Norm (Normal); Ketones Urine Negative (Negative); Leukocyte Esterase Urine Negative (Negative); Nitrate Urine Negative (Negative); Protein Urine Neg (Negative); Urine Appearance Clear (CLEAR); Urine Color Yellow (Yellow); Urobilinogen Urine Norm (Negative); pH Urine 5 (5-7)
[2020-08-15 22:01] LABS: Basophils # 0.1 10^3/uL (0.0-0.1); Basophils % 0.7 %; Eosinophils # 0.5 10^3/uL (0.0-0.8); Eosinophils % 5.7 %; Hematocrit 42.1 % (42.0-52.0); Hemoglobin 14.5 g/dL (11.7-16.6); Lymphocytes # 2.5 10^3/uL (0.8-4.8); Lymphocytes % 30.9 %; Mean Corpuscular HGB Conc 34.4 g/dL (30.0-36.0); Mean Corpuscular Hemoglobin 28.8 pg (28.0-34.0); Mean Corpuscular Volume 83.7 fL (80-94); Mean Platelet Volume 8.9 fL (7.4-10.4); Monocytes # 0.7 10^3/uL (0.2-0.9); Monocytes % 8.9 %; Neutrophils # 4.32 10^3/uL (1.8-7.7); Neutrophils % 53.7 %; Nucleated Red Blood Cells % 0 %; Platelet Count 249 10^3/cmm (130-400); Red Blood Count 5.03 10^6/uL (4.1-5.3); Red Cell Distribution Width 12.5 % (12.1-15.1); White Blood Count 8.1 10^3/uL (4.0-10.0)
--- NOTE | 2020-08-15 22:07 | XRR_ITS ---
PROCEDURE INFORMATION: Exam: XR Left Hand Exam date and time: 08/15/2020 10:23 PM Age: 25 years old Clinical indication: Injury or trauma; Other: Punched a metal rack; Blunt trauma (contusions or hematomas); Hand; Left TECHNIQUE: Imaging protocol: XR Left hand. Views: 3 or more views. COMPARISON: No relevant prior studies available. FINDINGS: There is some soft tissue swelling noted dorsally. There is no evidence of fracture. The joint spaces are well maintained. There is normal alignment of the carpal bones. XR/XR hand LT min 3V* [id number] IMPRESSION: No evidence of fracture.
--- NOTE | 2020-08-15 22:13 | PC.NURSE ---
pt placed in psych room with 1-1 sitter and changed into paper scrubs. pt is cooperative at this time.
[2020-08-15 22:18] LABS: Alanine Aminotransferase 19 U/L (0-41); Albumin Level 4.6 g/dL (3.5-5.2); Alkaline Phosphatase 100 IU/L (40-130); Anion Gap 15.2 (5-19); Aspartate Amino Transferase 20 U/L (0-40); Blood Urea Nitrogen 14 mg/dL (6-20); Carbon Dioxide 24 mmol/L (22-29); Chloride 102 mmol/L (98-107); Creatinine Clr Calc Pharmacy 161.6541; Globulin 2.6 g/dL (1.3-4.6); Glomerular Filtration Rate 139.8 mL/min (90-130); Glucose 88 mg/dL (65-115); Osmolality Calculated 284 mOsm/kg (285-295); Potassium 4.2 mmol/L (3.5-5.1); Sodium 137 mmol/L (136-145); Total Bilirubin 0.2 mg/dL (0.15-1.2); Total Protein 7.2 g/dL (6.6-8.7)
[2020-08-15 22:20] LABS: Acetaminophen < 5.0 ug/mL (10-30); Alcohol Level < 10 mg/dL (0-10); Salicylate < 0.3 mg/dL (3-10)
[2020-08-15 22:32] LABS: Amphetamines Screen Urine Positive (Negative); Barbiturates Screen Urine Negative (Negative); Benzodiazepines Screen Urine Negative (Negative); Cocaine Screen Urine Negative (Negative); Opiate Screen Urine Negative (Negative); PCP Screen Urine Negative (Negative); THC Screen Urine Positive (Negative)
[2020-08-16 00:17] VITALS: BP 98/59; PULSE 76; RESP 19; TEMP 36.8; O2SAT 96; BMI 22.1
[2020-08-16 06:00] VITALS: BP 113/63; PULSE 91; RESP 18; TEMP 36.6; O2SAT 96
--- NOTE | 2020-08-16 10:44 | PM.NHP ---
Providers/Chief Complaint Admitting Physician: Rajan Coto DO Chief Complaint: mhe HPI NPU History of Present Illness Mario Alberto Figueroa Jr is a 25 year old male presenting under similar circumstances as previous admission in May 2020 reporting suicidal ideation in the context of methamphetamine and cannabis intoxication. Patient reports arguing with family and also states that he is homeless after returning from the [place] area where he had also been admitted since last admission at this facility. Patient states that he had followed up with an outpatient provider after his admission in [place] but does not recall the name of the clinic. Patient is a poor historian and refusing to participate in interview calling the interviewer nate Westfall. Patient's chart was reviewed for any additional information. Patient will not participate in questions regarding psychiatric review of systems. Review of Systems General: Reports: ROS unobtainable due to mental status Meds NPU Home Medications Medication Instructions Recorded Confirmed Last Taken Type No Known Home Medications 08/16/20 08/16/20 Unknown History Allergies Allergy/AdvReac Type Severity Reaction Status Date / Time atomoxetine [From Strattera] Allergy Unknown Verified 03/30/20 17:59 red dye Allergy Unknown Verified 03/30/20 17:59 PFSH NPU PFSH: Medical History Alcohol abuse Marijuana abuse Polysubstance abuse Surgical History H/O peritonsillar abscess drainage No pertinent past surgical history Family History Denies family history of Cancer Social History Smoking and tobacco status: current every day smoker cigarettes Alcohol intake: current Alcohol intake frequency: few times a week Other Psychiatric History: Other Psychiatric History: Per above, patient states that he was seen in [place] after a recent admission but does not provide any additional details. Mental Status Exam MSE Comments: Lying in bed, poor eye contact, covering his face during interview, somewhat restless, moving his legs I feel horrible, constricted affect, somewhat labile Alert and oriented to person, place, time, situation Linear but brief, no flight of ideas, no looseness of associations No stated delusions, does not appear to be attending to any internal stimuli, no reported suicidal or homicidal ideation Insight and judgment are fair Vitals/I&O/Wt Last Vital Signs Temp 97.8 F 08/16/20 06:00 Pulse 91 08/16/20 06:00 Resp 18 08/16/20 06:00 BP 113/63 08/16/20 06:00 Pulse Ox 96 08/16/20 06:00 Weight last 48 hrs Weight 68.039 kg Weight 68.039 kg Weight 68.039 kg Data NPU : 08/15/20 21:55 08/15/20 21:55 A&P Assessment and plan (1) Suicidal ideation: Status: Acute (2) Polysubstance abuse: Status: Acute (3) Bipolar disorder: Status: Acute Qualifiers: Active/Remission status: currently active Current bipolar episode type: depressed Current episode severity: severe Psychotic features: with psychotic features Qualified Code(s): F31.5 - Bipolar disorder, current episode depressed, severe, with psychotic features (4) Methamphetamine abuse: Status: Acute (5) Cannabis abuse: Status: Acute Additional A&P Information Patient refusing to participate in interview, present to the emergency department with cannabis and methamphetamine intoxication in the context of recent argument with family, stating he is homeless, patient presents in immature, angry, irritable manner and does not appear to be disorganized, internally preoccupied or attending to internal stimuli and does not provide any statements or evidence of recent mood episodes outside the context of substance abuse. Per previous presentation, patient noncompliant with follow-up although reports seeing a provider in the [place] area after recent admission since last admission at this facility in May 2020. Patient would benefit from restarting low-dose antipsychotic and antidepressant targeting mood as well as post discharge substance counseling/treatment. INVOLUNTARY ADMIT to inpatient psychiatry START olanzapine 5 mg at bedtime START Lexapro 5 mg daily Patient was encouraged to participate in unit activities to include group sessions, unit milieu Coordinate with hospital social worker for post discharge mental health care follow-up Involuntary Hold Information 96 Hour Hold: 96 Hour Involuntary Admission: Yes 96 Hour Hold Ending Date: 08/20/20 96 Hour Hold Ending Time: 22:55 Attestations NPU Medical Necessity Statement*: Psychiatric hospitalization indicated for medication stabilization, coordination for safe discharge Anticipate hospital stay to exceed 2 midnights Time Spent in Patient Care: Greater than 35 minutes (>than 50% of time spent in counselling and/or direct pt care on unit). Coding Level of Care Code Acute Ent Consultant for g Fwd Diagnoses Suicidal ideation R45.851 Polysubstance abuse F19.10 Bipolar disorder F31.5 Active/Remission status: currently active Current bipolar episode type: depressed Current episode severity: severe Psychotic features: with psychotic features Methamphetamine abuse F15.10 Cannabis abuse F12.10
[2020-08-16] MEDS: escitalopram 10 mg Tablet 5 MG PO (11:21)
--- NOTE | 2020-08-16 13:55 | PC.NURSE ---
Addendum entered by Lashay Ramirez LPN 08/16/20 16:25: prn med effective, mood much more calm, at this time pt resting quietly in bed, resp even et unlabored Original Note: CODE 10--PRN ZYPREXA ZYDIS PT ESCALATING IN BEHAVIOR, DEMANDING THINGS OF STAFF & PHYSICIAN. REFUSING TO LEAVE THE NURSES STATION. SECURITY CALLED TO UNIT AT THIS TIME. PHYSICIAN ASKED PT TO LEAVE NURSES STATION TO PROTECT PRIVATE INFORMATION, PT REFUSED TO LEAVE & WAS THREATENING PHYSICIAN WHY DON'T YOU COME OUT HERE YOU LITTLE BITCH! PT ALSO THREATENED TO URINATE ALL OVER NURSES STATION. TOOK HIS SHIRT OFF & CONTINUED TO YELL/CURSE AT NURSING STAFF. KICKED THE WOODEN EXIT DOOR BY THE NURSING STATION SEVERAL TIMES THREATENING TO BREAK OUT OF THE UNIT PUNCHED THE GLASS SEVERAL TIMES AT THE NURSES STATION. DR. CHAWLA ASKED THAT POLICE BE CALLED TO UNIT. POLICE CALLED TO UNIT BY [employer] OFFICER, Nino WATSON RN. THIS NURSE ASKED PT IF HE WOULD GO TO DAY ROOM TO SPEAK WITH THIS NURSE, PT AGREEABLE. PRN MEDICATION OFFERED, PT AGREEABLE TO TAKE ORAL MEDICATION. PRN ZYPREXA ZYDIS 5 MG GIVEN PO PT C/O SEVERE AGITATION/AGGRESSION. PT CALLING OTHER NURSING STAFF FUCKING CUNTS & OTHER VULGARITIES. THIS NURSE ASKED PT TO PLEASE CEASE THE CURSING AND NAME CALLING. PT DID COMPLY WITH THIS NURSE'S REQUEST & TOOK PRN MEDICATION AT THIS TIME. PT EDUCATED ON UNIT RULES & EXPECTATIONS, ALSO EDUCATED THAT HIS PRIOR BEHAVIOR WAS INAPPROPRIATE. PT TEARFUL, APOLOGETIC. 3 POLICE OFFICERS ARRIVED TO UNIT. POLICE OFFERS MADE NO CONTACT WITH PT. THIS NURSE STAYED WITH PT UNTIL HE CALMED DOWN, THERAPEUTIC COMMUNICATION ENCOURAGED. STAFF WILL CONT TO MONITOR FOR DESIRED MED EFFECTIVENESS
[2020-08-16 14:00] VITALS: BP 117/69; PULSE 97; RESP 17; TEMP 37.1; O2SAT 96
[2020-08-16] MEDS: OLANZapine 5 mg ODT PO (14:08)
[2020-08-16] MEDS: OLANZapine 5 mg TABLET PO (19:52)
[2020-08-16 21:04] VITALS: BP 117/53; PULSE 53; RESP 15; TEMP 37.1; O2SAT 97
[2020-08-17 06:00] VITALS: BP 115/52; PULSE 85; RESP 18; TEMP 36.6; O2SAT 95
[2020-08-17] MEDS: escitalopram 10 mg Tablet 5 MG PO (08:45)
--- NOTE | 2020-08-17 11:18 | PC.RESP ---
Smoking Cessation information sent to patient.
--- NOTE | 2020-08-17 13:07 | P.PN_ITS ---
Subjective NPU Subjective: Interval history: Reports some irritability and anger with multiple outbursts yesterday in which he tried to kick in the magnet sized exit door and bus the nursing station glass window Denies any current depressive symptoms, denies any suicidal ideation When discussing treatment options after discharge, patient states he will not do any therapy because he has ADHD Reports tolerating his medication well and denies any medication side effects Mental Status Exam MSE Comments: Immature and childlike in his interactions, irritable, poor rapport, poor eye contact Psychomotor activity is neither increased nor decreased, no agitation Speech is normal rate and volume, spontaneous, fair articulation, not pressured I am fine, full range, not labile Alert and oriented to person, place, time, situation Memory and concentration appear to be fair per interview Thought process, linear but brief, no flight of ideas, no looseness of associations Thought content, no delusions, no hallucinations, no suicidal homicidal ideation Insight and judgment appear to be fair Vitals/I&O/Wt Last Vital Signs Temp 97.9 F 08/17/20 06:00 Pulse 85 08/17/20 06:00 Resp 18 08/17/20 06:00 BP 115/52 08/17/20 06:00 Pulse Ox 95 08/17/20 06:00 Weight last 48 hrs Weight 68.039 kg Weight 68.039 kg Weight 68.039 kg Data NPU : 08/15/20 21:55 08/15/20 21:55 A&P Assessment and plan (1) Suicidal ideation: Status: Acute (2) Personality disorder, unspecified: Status: Acute (3) Bipolar disorder: Status: Acute Qualifiers: Active/Remission status: currently active Current bipolar episode type: depressed Current episode severity: severe Psychotic features: with psychotic features Qualified Code(s): F31.5 - Bipolar disorder, current episode depressed, severe, with psychotic features (4) Polysubstance abuse: Status: Acute (5) Methamphetamine abuse: Status: Acute (6) Cannabis abuse: Status: Acute Additional A&P Information This is an individual that appears to have a lifelong pattern of behavior that is inflexible with tendency to externalize blame and poor frustration tolerance leading easily to physical agitation and verbal agitation. Patient has ongoing substance abuse including methamphetamine and cannabis abuse and appears to have little to no insight as to its contribution to exacerbating his condition and situation. Patient states that he refuses to do any counseling or therapy post discharge and becomes visibly irritable and angry during interview because he is upset that everyone continues to highlight his substance use and its contribution to his situation. CONTINUE current medication, continue to monitor Involuntary Hold Information 96 Hour Hold: 96 Hour Involuntary Admission: Yes 96 Hour Hold Ending Date: 08/20/20 96 Hour Hold Ending Time: 22:55 Attestations NPU Medical Necessity Statement*: Continues to require psychiatric hospitalization for medication stabilization, coordination for safe discharge Coding Level of Care Code Acute Manager Graphic for [facility] Fwd Diagnoses Suicidal ideation R45.851 Personality disorder, unspecified F60.9 Bipolar disorder F31.5 Active/Remission status: currently active Current bipolar episode type: depressed Current episode severity: severe Psychotic features: with psychotic features Polysubstance abuse F19.10 Methamphetamine abuse F15.10 Cannabis abuse F12.10
[2020-08-17 14:00] VITALS: BP 115/70; PULSE 66; RESP 18; TEMP 36.6; O2SAT 96
[2020-08-17] MEDS: OLANZapine 5 mg TABLET PO (19:42)
[2020-08-17 20:01] VITALS: BP 122/82; PULSE 78; RESP 18; TEMP 36.4; O2SAT 98
[2020-08-18 06:00] VITALS: BP 119/69; PULSE 55; RESP 16; TEMP 36.8; O2SAT 97
[2020-08-18] MEDS: escitalopram 10 mg Tablet 5 MG PO (08:15)
--- NOTE | 2020-08-18 12:32 | PM.NPN ---
Subjective NPU Subjective: Interval history: Per staff report, no interval behavioral disturbances, being cooperative with care Denies any interval mood symptoms Denies any interval withdrawal symptoms Denies any interval suicidal ideation and has not made any interval threats Reports being compliant with medication, denies any medication side effects Mental Status Exam MSE Comments: Lying in bed, calm, cooperative, interactive, good eye contact Psychomotor activity is neither increased nor decreased, no agitation Speech is normal rate and volume, spontaneous, fair articulation, not pressured Okay, full range, not labile Alert and oriented to person, place, time, situation Memory and concentration appear to be fair per interview Thought process, linear but brief, no flight of ideas, no looseness of associations Thought content, no delusions, no hallucinations, no suicidal homicidal ideation Insight and judgment appear to be fair Vitals/I&O/Wt Last Vital Signs Temp 98.3 F 08/18/20 06:00 Pulse 55 L 08/18/20 06:00 Resp 16 08/18/20 06:00 BP 119/69 08/18/20 06:00 Pulse Ox 97 08/18/20 06:00 Data NPU : 08/15/20 21:55 08/15/20 21:55 A&P Assessment and plan (1) Suicidal ideation: Status: Acute (2) Personality disorder, unspecified: Status: Acute (3) Bipolar disorder: Status: Acute Qualifiers: Active/Remission status: currently active Current bipolar episode type: depressed Current episode severity: severe Psychotic features: with psychotic features Qualified Code(s): F31.5 - Bipolar disorder, current episode depressed, severe, with psychotic features (4) Polysubstance abuse: Status: Acute (5) Methamphetamine abuse: Status: Acute (6) Cannabis abuse: Status: Acute Additional A&P Information Improving, no interval behavioral disturbances, no interval suicidal ideation and no longer making threats towards staff CONTINUE current medication, continue to monitor Involuntary Hold Information 96 Hour Hold: 96 Hour Involuntary Admission: Yes 96 Hour Hold Ending Date: 08/20/20 96 Hour Hold Ending Time: 22:55 Attestations NPU Medical Necessity Statement*: Continues to require psychiatric hospitalization for medication stabilization, coordination for safe discharge Coding Level of Care Code Acute Supervisor [employer] for [facility] Diagnoses Suicidal ideation R45.851 Personality disorder, unspecified F60.9 Bipolar disorder F31.5 Active/Remission status: currently active Current bipolar episode type: depressed Current episode severity: severe Psychotic features: with psychotic features Polysubstance abuse F19.10 Methamphetamine abuse F15.10 Cannabis abuse F12.10
[2020-08-18 13:26] VITALS: RESP 18
[2020-08-18] MEDS: OLANZapine 5 mg TABLET PO (19:26)
[2020-08-18 19:46] VITALS: BP 121/77; PULSE 87; RESP 15; TEMP 36.7; O2SAT 96
[2020-08-19 06:00] VITALS: BP 122/77; PULSE 60; RESP 15; TEMP 36.4; O2SAT 99
[2020-08-19] MEDS: escitalopram 10 mg Tablet 5 MG PO (08:24)
--- NOTE | 2020-08-19 09:00 | PM.NDC ---
Diagnoses at Discharge Discharge Diagnosis (1) Suicidal ideation: Status: Acute (2) Personality disorder, unspecified: Status: Acute (3) Bipolar disorder: Status: Acute Qualifiers: Active/Remission status: currently active Current bipolar episode type: depressed Current episode severity: severe Psychotic features: with psychotic features Qualified Code(s): F31.5 - Bipolar disorder, current episode depressed, severe, with psychotic features (4) Polysubstance abuse: Status: Acute (5) Methamphetamine abuse: Status: Acute (6) Cannabis abuse: Status: Acute Reason for Visit Reason for Visit: [facility] Hospital Course Hospital Course 25 year old male presenting under similar circumstances as previous admission in May 2020 reporting suicidal ideation in the context of methamphetamine and cannabis intoxication. Patient reports arguing with family and also states that he is homeless after returning from the [place] area where he had also been admitted since last admission at this facility. Patient states that he had followed up with an outpatient provider after his admission in [place] but does not recall the name of the clinic. Patient was initially combative and evasive with regards to participating in care and at one point was trying to kick down an exit door requiring police to come to the unit at which time the patient eventually calm down. Patient also required as needed medication during this episode. Patient was started back on his previous regimen of olanzapine 5 mg at bedtime and Lexapro 5 mg daily with good effect and no reports of any medication side effects. Patient subsequently calm down and participated in care although he continued to be somewhat irritable and stating that he had no interest in follow on therapy but would agree to follow on medication management post discharge. He was not suicidal and did not endorse any psychiatric symptoms at the time of discharge and did not appear to pose an imminent threat of harm to self or others. Low to moderate risk of harm to self although patient frequently presents in a manner of substance intoxication with irritable and angry mood acting impulsively and unexpectedly which we will continue to chronically elevate his risk during these episodes. Risk mitigation included psychiatric hospitalization, medication stabilization, frequent behavioral redirection and establishing boundaries, recommendation to abstain from use of substances and alcohol as well as need for compliance with his medication and medication management and substance counseling/treatment post discharge. Patient was able to communicate his understanding of the need to abstain from substances and alcohol as well as the need for compliance with his medication medication management follow-up but continued to state that he had no interest in therapy post discharge. Patient did communicate his understanding that these recommendations are necessary in order to further mitigate his risk of harm to self and others. Involuntary Hold Information 96 Hour Hold: 96 Hour Involuntary Admission: Yes 96 Hour Hold Ending Date: 08/20/20 96 Hour Hold Ending Time: 22:55 Mental Status Exam MSE Comments: Sitting up on her bed, polite, interactive, calm, appropriately groomed and dressed, good eye contact Psychomotor activity is neither increased nor decreased, no agitation Speech is normal rate and volume, spontaneous, fair articulation, not pressured I feel pretty good, full range, not labile Alert and oriented to person, place, time, situation Memory and concentration appear to be fair per interview Thought process, linear but brief, no flight of ideas, no looseness of associations Thought content, no delusions, no hallucinations, no suicidal homicidal ideation Insight and judgment appear to be fair Discharge Data Data Completed and Pending: Completed Studies During Hospitalization Category Date Time Status XR hand LT min 3V * [id number] Stat Exams 08/15/20 22:07 Completed Vitals: Last Vital Signs Temp 97.5 F L 08/19/20 06:00 Pulse 60 08/19/20 06:00 Resp 15 08/19/20 06:00 BP 122/77 08/19/20 06:00 Pulse Ox 99 08/19/20 06:00 Discharge Plan Discharge Patient Disposition: Home Condition: Stable Prescriptions: New olanzapine 5 mg Tablet 5 mg PO BEDTIME Qty: 30 RF: 0 escitalopram oxalate 10 mg Tablet 5 mg PO DAILY Qty: 30 RF: 0 Discharge Orders: Discharge Order (Routine); Ordered 08/19/20 Ordered By: Rajan Coto Referrals: [facility] [Outside] [facility] [Outside] Discharge Diet: Regular Discharge Activity: Resume usual activity Patient Instructions: Opioid Safety Discharge Attestations NPU Time Spent in Discharge Care*: greater than 30 min Status at Discharge: Cognitive status at discharge: cognitively intact, Behavioral status at discharge: cooperative, Functional status at discharge: independent ambulation Overall status at discharge: patient is back to baseline Coding Level of Care Code Acute g FW CT note Diagnoses Suicidal ideation R45.851 Personality disorder, unspecified F60.9 Bipolar disorder F31.5 Active/Remission status: currently active Current bipolar episode type: depressed Current episode severity: severe Psychotic features: with psychotic features Polysubstance abuse F19.10 Methamphetamine abuse F15.10 Cannabis abuse F12.10
[2020-08-19 09:05] VITALS: BP 122/77; PULSE 60; RESP 15; TEMP 36.4; O2SAT 99
== END 2020-08-19 10:01 | disposition home or self-care (01) | DRG 885 ==
LOC: ER 22:34 → NP 23:12
PROVIDERS: Admitting Provider Psychiatry & Neurology Psychiatry; Emergency Provider Emergency Medicine; Visit Provider Psychiatry & Neurology Psychiatry
DX: F31.5 Bipolar disorder, current episode depressed, severe, with psychotic features (principal); R45.851 Suicidal ideations; F12.129 Cannabis abuse with intoxication, unspecified; F17.210 Nicotine dependence, cigarettes, uncomplicated; F15.129 Other stimulant abuse with intoxication, unspecified; F60.9 Personality disorder, unspecified; F19.10 Other psychoactive substance abuse, uncomplicated; Z91.19 Patient's noncompliance with other medical treatment and regimen; Z91.5 Personal history of self-harm
CPT/HCPCS: 73130; 80053; 80306; 80307; 81003; 85025; 96372; 99285; J2060; J3486

== ENCOUNTER 2020-10-01 05:08 | Emergency (ER) | payer MEDICAID, SELFPAY ==
[2020-10-01 05:09] VITALS: BP 132/86; PULSE 103; RESP 16; TEMP 36.8; O2SAT 98; BMI 24.7
[2020-10-01] MEDS: LORazepam 2 mg/mL INJ 1 mL (05:10)
--- NOTE | 2020-10-01 05:13 | ECG_ITS ---
[facility] Test Date: 2020-10-01 Pat Name: Mario Alberto Figueroa Jr Department: Room: Gender: Male Emergency Man: : 1995 Requested By: Markus Tirado Order Number: [id number] Brent MD: Nicolás Nascimento M.D. Measurements Intervals [place] Rate: 96 P: 61 AR: 155 QRS: 76 QRSD: 106 T: 35 QT: 337 QTc: 428 Interpretive Statements SINUS RHYTHM Compared to ECG 03/12/2020 02:47:28 No significant changes Electronically Signed On 10-01-2020 20:30:05 CDT by Nicolás Nascimento M.D. [id number]
--- NOTE | 2020-10-01 05:13 | XRR_ITS ---
PROCEDURE INFORMATION: Exam: XR Chest Exam date and time: 10/01/2020 5:09 AM Age: 25 years old Clinical indication: Chest pressure; Patient HX: Chest pain with arm numbness. TECHNIQUE: Imaging protocol: XR of the chest. Views: 1 view. COMPARISON: CR XR chest 1V portable [id number] 05/24/2020 8:01 PM FINDINGS: Lungs: Lungs still clear. Pleural spaces: Still no pneumothorax or apparent pleural fluid. Heart/Mediastinum: Still no cardiomegaly. Bones/joints: No acute bony disease. Interval minimal right convex scoliosis. XR/XR chest 1V portable [id number] IMPRESSION: No acute findings or significant interval change.
--- NOTE | 2020-10-01 05:15 | ED_ITS ---
Documented by User: Markus Tirado MD 10/01/20 05:33 HPI - Weakness General: Chief complaint: General Medical Stated complaint: face,arm and leg numbness Time Seen by Provider: 10/01/20 05:09 Source: patient and EMS Mode of arrival: EMS Limitations: no limitations History of Present Illness: HPI Narrative: 25-year-old male states that he has been walking around outside over the last 2 days and feels like he is had heat exhaustion. He states that tonight at home he started having some numbness going down his left arm he started getting extremely anxious. Patient here is extremely anxious and appears to be having a panic attack. He is quite tachypneic and yelling that his chest is hurting and that he cannot breathe. He was recently admitted to psych facility a week ago and has been out for 2 days. He states he does not have a car so he has to walk around [place]. He denies any suicidality or homicidality. He does have a history of marijuana and methamphetamine abuse. Associated symptoms: Reports chest pain Review of Systems Card: Reports: chest pain Neuro: Reports: numbness in extremities Psych: Reports: anxiety [facility] ED PFSH: Medical History Alcohol abuse Marijuana abuse Polysubstance abuse Surgical History H/O peritonsillar abscess drainage No pertinent past surgical history Family History Denies family history of Cancer Social History Smoking and tobacco status: current every day smoker cigarettes Alcohol intake: current Alcohol intake frequency: few times a week Physical Exam Const: COMMON NORMALS: patient oriented x3 and healthy appearing GENERAL APPEARANCE: anxious HENMT: COMMON NORMALS: normocephalic and atraumatic HEAD & SCALP: normocephalic and atraumatic Eye: COMMON NORMALS: Equal, round and reactive pupils present and EOMs intact bilaterally PUPIL: Yes Equal, round and reactive pupils present Neck/C-Spine: COMMON NORMALS: full ROM and supple Chest: COMMONS NORMALS: normal inspection of the chest and normal palpation of entire chest wall Resp: COMMON NORMALS: normal respiratory effort, No retractions, No use of accessory muscles and clear to auscultation bilaterally AUSCULTATION: clear to auscultation bilaterally Cardio: COMMON NORMALS: regular rhythm and No murmurs present (Cardio) RATE: tachycardic RHYTHM: regular rhythm GI: COMMON NORMALS: Normal to inspection, nondistended, normoactive bowel sounds present, Soft to palpation, non-tender and no masses PALPATION: Yes Soft to palpation Extremity: COMMON NORMALS: normal to inspection and full ROM Neuro: COMMON NORMALS: patient oriented x3, moves all extremities and no focal motor deficits Psych: COMMON NORMALS: mental status grossly normal, Normal thought process present and cooperative MOOD & AFFECT: Yes anxious THOUGHT PROCESS: Normal thought process present Skin: COMMON NORMALS: no rashes or lesions noted and no wounds GENERAL SKIN EXAM: no rashes or lesions noted Course Vital Signs: Vital signs: Vital Signs Temperature 98.2 F 10/01/20 05:09 Pulse Rate 103 H 10/01/20 05:09 Respiratory Rate 16 10/01/20 05:09 Blood Pressure 132/86 10/01/20 05:09 Pulse Oximetry 98 10/01/20 05:09 MDM - Weakness Lab Data: Labs: Lab Results 10/01/20 10/01/20 Range/Units 05:28 05:28 WBC 11.1 H (4.0-10.0) 10^3/ uL RBC 5.04 (4.1-5.3) 10^6/u L Hgb 14.5 (11.7-16.6) g/dL Hct 42.4 (42.0-52.0) % MCV 84.1 (80-94) fL MCH 28.8 (28.0-34.0) pg MCHC 34.2 (30.0-36.0) g/dL RDW 13.3 (12.1-15.1) % Plt Count 329 (130-400) 10^3/c mm MPV 8.6 (7.4-10.4) fL Neut % (Auto) 70.8 % Lymph % (Auto) 19.3 % Harding % (Auto) 6.1 % Eos % (Auto) 2.1 % Baso % (Auto) 0.5 % Neut # (Auto) 7.83 H (1.8-7.7) 10^3/u L Lymph # (Auto) 2.1 (0.8-4.8) 10^3/u L Harding # (Auto) 0.7 (0.2-0.9) 10^3/u L Eos # (Auto) 0.2 (0.0-0.8) 10^3/u L Baso # (Auto) 0.1 (0.0-0.1) 10^3/u L Nucleated RBC % (a uto) 0 % Nucleated RBCs # 0.0 /100WBC Sodium 135 L (136-145) mmol/L Potassium 3.8 (3.5-5.1) mmol/L Chloride 98 (98-107) mmol/L Carbon Dioxide 23 (22-29) mmol/L Anion Gap 17.8 (5-19) BUN 10 (6-20) mg/dL Creatinine 0.6 L (0.7-1.2) mg/dL GFR Calculation 167.0 H (90-130) mL/min Glucose 101 (65-115) mg/dL Calculated Osmolal ity 279 L (285-295) mOsm/k g Calcium 9.7 (8.5-10.5) mg/dL Total Bilirubin 0.4 (0.15-1.2) mg/dL AST 21 (0-40) U/L ALT 25 (0-41) U/L Alkaline Phosphata se 94 (40-130) IU/L Creatine Kinase 188 (39-308) U/L Total Protein 7.4 (6.6-8.7) g/dL Albumin 4.7 (3.5-5.2) g/dL Globulin 2.7 (1.3-4.6) g/dL EKG Data^: EKG 1: Attestation: I personally reviewed and interpreted this EKG as follows: EKG interpretation date: 10/01/20 EKG interpretation time: 05:28 Interpretation: nsr hr [address] or t wave abnormalities qrs 106 qtc 391 Discharge Plan Discharge Patient Disposition: Home Clinical Impression: Anxiety Condition: Stable Prescriptions: No Action olanzapine 5 mg Tablet 5 mg PO BEDTIME Qty: 30 RF: 0 escitalopram oxalate 10 mg Tablet 5 mg PO DAILY Qty: 30 RF: 0 Discharge Orders: Discharge ED (Routine); Ordered 10/01/20 Ordered By: Jaydon Patiño Discharge Activity: Resume usual activity Patient Instructions: Anxiety (ED), Opioid Safety Activity Restrictions/Additional Instructions: Avoid any stimulants. Drink plenty of fluids. Avoid caffeine. Coding Level of Care Code ED Licensed Physical Therapist for Chg Fwd Exam Comprehensive Documented by User: Jaydon Patiño MD 10/01/20 06:26 HPI - Weakness General: Chief complaint: General Medical Stated complaint: face,arm and leg numbness Time Seen by Provider: 10/01/20 05:09 History of Present Illness: Associated symptoms: Denies chest pain, chills, fever(s), headache(s), nausea or vomiting Review of Systems Const: Denies: fever(s) or chills Eyes: Denies: change in vision ENMT: Denies: throat pain Card: Denies: chest pain or palpitations Resp: Denies: dyspnea or wheezing GI: Denies: abdominal pain, nausea or vomiting : Denies: flank pain Musc: Denies: neck pain or back pain Skin/Breast: Denies: rash or pruritus Neuro: Denies: headache(s) Psych: Reports: anxiety and panic attacks; Denies: depression, suicidal ideation or homicidal ideation Gianfranco/Lymph: Denies: enlarged lymph nodes PFSH ED PFSH: Medical History Alcohol abuse Marijuana abuse Polysubstance abuse Surgical History H/O peritonsillar abscess drainage No pertinent past surgical history Family History Denies family history of Cancer Social History Smoking and tobacco status: current every day smoker cigarettes Alcohol intake: current Alcohol intake frequency: few times a week Course Vital Signs: Vital signs: Vital Signs Temperature 98.2 F 10/01/20 05:09 Pulse Rate 103 H 10/01/20 05:09 Respiratory Rate 16 10/01/20 05:09 Blood Pressure 132/86 10/01/20 05:09 Pulse Oximetry 98 10/01/20 05:09 MDM - Weakness MDM Narrative: Medical decision making narrative: Patient is feeling better. Patient is calm. He has no distress now. Lab Data: Attestation: I reviewed the patient's lab results. Labs: Lab Results 10/01/20 10/01/20 Range/Units 05:28 05:28 WBC 11.1 H (4.0-10.0) 10^3/ uL RBC 5.04 (4.1-5.3) 10^6/u L Hgb 14.5 (11.7-16.6) g/dL Hct 42.4 (42.0-52.0) % MCV 84.1 (80-94) fL MCH 28.8 (28.0-34.0) pg MCHC 34.2 (30.0-36.0) g/dL RDW 13.3 (12.1-15.1) % Plt Count 329 (130-400) 10^3/c mm MPV 8.6 (7.4-10.4) fL Neut % (Auto) 70.8 % Lymph % (Auto) 19.3 % Harding % (Auto) 6.1 % Eos % (Auto) 2.1 % Baso % (Auto) 0.5 % Neut # (Auto) 7.83 H (1.8-7.7) 10^3/u L Lymph # (Auto) 2.1 (0.8-4.8) 10^3/u L Harding # (Auto) 0.7 (0.2-0.9) 10^3/u L Eos # (Auto) 0.2 (0.0-0.8) 10^3/u L Baso # (Auto) 0.1 (0.0-0.1) 10^3/u L Nucleated RBC % (a uto) 0 % Nucleated RBCs # 0.0 /100WBC Sodium 135 L (136-145) mmol/L Potassium 3.8 (3.5-5.1) mmol/L Chloride 98 (98-107) mmol/L Carbon Dioxide 23 (22-29) mmol/L Anion Gap 17.8 (5-19) BUN 10 (6-20) mg/dL Creatinine 0.6 L (0.7-1.2) mg/dL GFR Calculation 167.0 H (90-130) mL/min Glucose 101 (65-115) mg/dL Calculated Osmolal ity 279 L (285-295) mOsm/k g Calcium 9.7 (8.5-10.5) mg/dL Total Bilirubin 0.4 (0.15-1.2) mg/dL AST 21 (0-40) U/L ALT 25 (0-41) U/L Alkaline Phosphata se 94 (40-130) IU/L Creatine Kinase 188 (39-308) U/L Total Protein 7.4 (6.6-8.7) g/dL Albumin 4.7 (3.5-5.2) g/dL Globulin 2.7 (1.3-4.6) g/dL Imaging Data^: CXR: Attestation: I personally reviewed and interpreted this imaging study as follows: My impression: Chest x-ray appears normal Discharge Plan Discharge Patient Disposition: Home Clinical Impression: Anxiety Condition: Stable Prescriptions: No Action olanzapine 5 mg Tablet 5 mg PO BEDTIME Qty: 30 RF: 0 escitalopram oxalate 10 mg Tablet 5 mg PO DAILY Qty: 30 RF: 0 Discharge Orders: Discharge ED (Routine); Ordered 10/01/20 Ordered By: Jaydon Patiño Discharge Activity: Resume usual activity Patient Instructions: Anxiety (ED), Opioid Safety Activity Restrictions/Additional Instructions: Avoid any stimulants. Drink plenty of fluids. Avoid caffeine. Coding Level of Care Code ED Licensed Physical Therapist for Farideh Fwd Exam Comprehensive
[2020-10-01] MEDS: sodium chloride 0.9% 1,000 ML 999 ML IV (05:35)
[2020-10-01 05:37] LABS: Basophils # 0.1 10^3/uL (0.0-0.1); Basophils % 0.5 %; Eosinophils # 0.2 10^3/uL (0.0-0.8); Eosinophils % 2.1 %; Hematocrit 42.4 % (42.0-52.0); Hemoglobin 14.5 g/dL (11.7-16.6); Lymphocytes # 2.1 10^3/uL (0.8-4.8); Lymphocytes % 19.3 %; Mean Corpuscular HGB Conc 34.2 g/dL (30.0-36.0); Mean Corpuscular Hemoglobin 28.8 pg (28.0-34.0); Mean Corpuscular Volume 84.1 fL (80-94); Mean Platelet Volume 8.6 fL (7.4-10.4); Monocytes # 0.7 10^3/uL (0.2-0.9); Monocytes % 6.1 %; Neutrophils # 7.83 10^3/uL (1.8-7.7); Neutrophils % 70.8 %; Nucleated Red Blood Cells % 0 %; Platelet Count 329 10^3/cmm (130-400); Red Blood Count 5.04 10^6/uL (4.1-5.3); Red Cell Distribution Width 13.3 % (12.1-15.1); White Blood Count 11.1 10^3/uL (4.0-10.0)
[2020-10-01 05:57] LABS: Alanine Aminotransferase 25 U/L (0-41); Albumin Level 4.7 g/dL (3.5-5.2); Alkaline Phosphatase 94 IU/L (40-130); Anion Gap 17.8 (5-19); Aspartate Amino Transferase 21 U/L (0-40); Blood Urea Nitrogen 10 mg/dL (6-20); Calcium 9.7 mg/dL (8.5-10.5); Carbon Dioxide 23 mmol/L (22-29); Chloride 98 mmol/L (98-107); Creatine Phosphokinase 188 U/L (39-308); Globulin 2.7 g/dL (1.3-4.6); Glucose 101 mg/dL (65-115); Osmolality Calculated 279 mOsm/kg (285-295); Potassium 3.8 mmol/L (3.5-5.1); Sodium 135 mmol/L (136-145); Total Bilirubin 0.4 mg/dL (0.15-1.2); Total Protein 7.4 g/dL (6.6-8.7)
== END 2020-10-01 06:54 | disposition home or self-care (01) ==
PROVIDERS: Emergency Medicine; Emergency Provider Family Medicine
DX: F41.9 Anxiety disorder, unspecified (principal); F17.210 Nicotine dependence, cigarettes, uncomplicated; F19.90 Other psychoactive substance use, unspecified, uncomplicated
CPT/HCPCS: 71045; 80053; 82550; 85025; 93005; 96360; 99284; J2060; J7030

== ENCOUNTER 2020-10-04 22:22 | Emergency (ER) | payer MEDICAID, SELFPAY ==
[2020-10-04 22:31] VITALS: BP 128/85; PULSE 92; RESP 16; TEMP 36.9; O2SAT 96; BMI 21.4
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
[2020-10-04 22:39] VITALS: BP 128/88; PULSE 112; RESP 22; O2SAT 96
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
[2020-10-04] MEDS: bacitracin ointment Pkt 1 EACH TOPICAL (23:30)
[2020-10-04] MEDS: cephALEXin 500 mg Capsule PO (23:30)
[2020-10-04 23:54] VITALS: BP 128/88; PULSE 112; RESP 22; O2SAT 96
== END 2020-10-04 23:30 | disposition home or self-care (01) ==
PROVIDERS: Emergency Provider Nurse Practitioner Family
DX: S61.422A Laceration with foreign body of left hand, initial encounter (principal); F17.210 Nicotine dependence, cigarettes, uncomplicated; X99.0XXA Assault by sharp glass, initial encounter
CPT/HCPCS: 73130; 99283

== ENCOUNTER 2020-10-05 00:53 | Emergency (ER) | payer MEDICAID, SELFPAY ==
[2020-10-05] VITALS (7 sets, daily range): BP systolic 90–123; BP diastolic 30–77; PULSE 64–70; RESP 16–18; TEMP 36.5; O2SAT 92–100; BMI 20.7
--- NOTE | 2020-10-05 00:55 | CTR_ITS ---
PROCEDURE INFORMATION: Exam: CT Cervical Spine Without Contrast Exam date and time: 10/05/2020 12:55 AM Age: 25 years old Clinical indication: Injury or trauma; Fall; Blunt trauma; Additional info: Altered mental status, fall TECHNIQUE: Imaging protocol: Computed tomography images of the cervical spine without contrast. Radiation optimization: All CT scans at this facility use at least one of these dose optimization techniques: automated exposure control; mA and/or kV adjustment per patient size (includes targeted exams where dose is matched to clinical indication); or iterative reconstruction. COMPARISON: CT cervical spin wo con* [id number] 05/24/2020 8:14 PM RADIATION DOSE METRICS: Total DLP (mGy-cm): 678.81 FINDINGS: Bones/joints: There is normal vertebral body alignment. There are normal vertebral body heights. The dens is intact. The lateral masses of C1 are symmetric. No fracture. Discs/Spinal canal/Neural foramina: Craniocervical articulation is normal. Atlantodental interval and prevertebral soft tissues are normal. Disc spaces are symmetric and maintained. Lungs: Lung apices are normal. Soft tissues: Unremarkable. CT/CT cervical spin wo con* [id number] IMPRESSION: No fracture. Radiation Dose CTDIVOL = (mGy): DLP = 678.81 (mGy-cm)
--- NOTE | 2020-10-05 00:55 | CTR_ITS ---
PROCEDURE INFORMATION: Exam: CT Head Without Contrast Exam date and time: 10/05/2020 12:55 AM Age: 25 years old Clinical indication: Altered mental status/memory loss; Confusion or disorientation; Additional info: AMS TECHNIQUE: Imaging protocol: Computed tomography of the head without contrast. Radiation optimization: All CT scans at this facility use at least one of these dose optimization techniques: automated exposure control; mA and/or kV adjustment per patient size (includes targeted exams where dose is matched to clinical indication); or iterative reconstruction. COMPARISON: CT head wo con* [id number] 05/24/2020 8:09 PM RADIATION DOSE METRICS: Total DLP (mGy-cm): 927.28 FINDINGS: Brain: No acute infarct or hemorrhage. Cerebral ventricles: No ventriculomegaly. Paranasal sinuses: Mild ethmoid sinus mucosal thickening. Mastoid air cells: Visualized mastoid air cells are clear. Bones/joints: No calvarial or skull base fracture. Soft tissues: Unremarkable. CT/CT head wo con* [id number] IMPRESSION: 1. No calvarial or skull base fracture. 2. No acute infarct or hemorrhage. Radiation Dose CTDIVOL = (mGy): DLP = 927.28 (mGy-cm)
--- NOTE | 2020-10-05 00:56 | ECG_ITS ---
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: : 1995 Requested By: Jt Romo Order Number: [id number] Brent MD: ANGELIC SALCIDO Measurements Intervals [place] Rate: 69 P: 64 NC: 159 QRS: 85 QRSD: 103 T: 50 QT: 386 QTc: 416 Interpretive Statements SINUS RHYTHM WITH MARKED SINUS ARRHYTHMIA NONSPECIFIC T-WAVE ABNORMALITY Compared to ECG 10/01/2020 05:28:58 T-wave abnormality now present Electronically Signed On 10-05-2020 18:49:19 CDT by ANGELIC SALCIDO [id number]
[2020-10-05 01:17] LABS: Basophils # 0.1 10^3/uL (0.0-0.1); Eosinophils # 0.3 10^3/uL (0.0-0.8); Eosinophils % 4.1 %; Hematocrit 40.5 % (42.0-52.0); Hemoglobin 13.4 g/dL (11.7-16.6); Lymphocytes # 3.1 10^3/uL (0.8-4.8); Lymphocytes % 38.1 %; Mean Corpuscular HGB Conc 33.1 g/dL (30.0-36.0); Mean Corpuscular Hemoglobin 28.9 pg (28.0-34.0); Mean Corpuscular Volume 87.5 fL (80-94); Monocytes # 0.7 10^3/uL (0.2-0.9); Monocytes % 8.7 %; Neutrophils # 3.85 10^3/uL (1.8-7.7); Neutrophils % 47.7 %; Nucleated Red Blood Cells % 0 %; Platelet Count 319 10^3/cmm (130-400); Red Blood Count 4.63 10^6/uL (4.1-5.3); Red Cell Distribution Width 13.5 % (12.1-15.1); White Blood Count 8.1 10^3/uL (4.0-10.0)
[2020-10-05 01:39] LABS: Alanine Aminotransferase 17 U/L (0-41); Albumin Level 4.3 g/dL (3.5-5.2); Alkaline Phosphatase 92 IU/L (40-130); Anion Gap 13.8 (5-19); Aspartate Amino Transferase 17 U/L (0-40); Blood Urea Nitrogen 12 mg/dL (6-20); C Reactive Protein 3.9 mg/L (0.0-4.9); Calcium 8.7 mg/dL (8.5-10.5); Carbon Dioxide 27 mmol/L (22-29); Chloride 101 mmol/L (98-107); Creatine Phosphokinase 320 U/L (39-308); Globulin 2.5 g/dL (1.3-4.6); Glomerular Filtration Rate 104.6 mL/min (90-130); Glucose 79 mg/dL (65-115); Osmolality Calculated 285 mOsm/kg (285-295); Potassium 3.8 mmol/L (3.5-5.1); Sodium 138 mmol/L (136-145); Total Bilirubin 0.3 mg/dL (0.15-1.2); Total Protein 6.8 g/dL (6.6-8.7)
[2020-10-05 01:50] LABS: Alcohol Level < 10 mg/dL (0-10)
[2020-10-05 04:35] LABS: Blood Urine Neg (Negative); Glucose Urine UA Norm (Normal); Ketones Urine Negative (Negative); Protein Urine Neg (Negative); Specific Gravity, Urine 1.015 (1.005-1.030); Urine Appearance Hazy (CLEAR); Urine Color Yellow (Yellow); pH Urine 7 (5-7)
[2020-10-05 04:36] LABS: Add Urine Microscopic? YES; Amorphous Sediment Urine 4+ /hpf; Bacteria Urine TRACE /hpf; Bilirubin Urine Neg (Negative); Leukocyte Esterase Urine Negative (Negative); Nitrate Urine Negative (Negative); RBC Urine 0-4 /hpf (0-2); Squamous Epithelial Cell Urine 0-4 /hpf (0-5); Urobilinogen Urine 1 mg/dL (Negative); WBC Urine 0-4 /hpf (0-5)
[2020-10-05 04:38] LABS: Amphetamines Screen Urine Positive (Negative); Barbiturates Screen Urine Negative (Negative); Benzodiazepines Screen Urine Negative (Negative); Cocaine Screen Urine Negative (Negative); Opiate Screen Urine Negative (Negative); PCP Screen Urine Negative (Negative); THC Screen Urine Positive (Negative)
--- NOTE | 2020-10-05 05:48 | W.ED.AMS ---
HPI - Altered Mental Status General: Chief Complaint: Altered Mental Status Stated Complaint: seizure Time Seen by Provider: 10/05/20 00:55 History of Present Illness: HPI narrative: 25-year-old male who was just seen and released for lacerations to his forearm. He was sitting in the waiting room waiting on his a ride home, when he began to have a seizure in the waiting room. No convulsions were noted, but he did fall on the floor and exhibited no change in his mental status with some very transient apnea. He presents in my emergency room 11 with deep agonal respirations, rolling his eyes, talking intermittently. MD complaint: altered mental status and decreased responsiveness Onset (ago): minute(s) Timing confirmed by: other (Lobby staff) Severity: moderate Consistency of symptoms: Waxing and Waning Context: drug abuse Associated symptoms: Deny auditory hallucinations, visual hallucinations, homicidal ideation or suicidal ideation Treatments prior to arrival: other (None) Review of Systems General: Reports: ROS unobtainable due to mental status Psych: Denies: visual hallucinations, auditory hallucinations, suicidal ideation or homicidal ideation [facility] ED PFSH: Medical History Alcohol abuse Marijuana abuse Polysubstance abuse Surgical History H/O peritonsillar abscess drainage No pertinent past surgical history Family History Denies family history of Cancer Social History Smoking and tobacco status: current every day smoker cigarettes Alcohol intake: current Alcohol intake frequency: few times a week Physical Exam Const: GENERAL APPEARANCE: disheveled, lethargic and ill appearing NUTRITIONAL APPEARANCE: thin ORIENTATION/CONSCIOUSNESS: Yes confused and Yes lethargic HENMT: COMMON NORMALS: normocephalic and atraumatic HEAD & SCALP: normocephalic and atraumatic Eye: COMMON NORMALS: Equal, round and reactive pupils present and EOMs intact bilaterally GENERAL EYE: other (Wide pupils) PUPIL: Yes Equal, round and reactive pupils present Neck/C-Spine: GENERAL: No tender Chest: COMMONS NORMALS: normal inspection of the chest Resp: COMMON NORMALS: clear to auscultation bilaterally EFFORT & INSPECTION: Yes abnormal respiratory pattern and Yes tachypneic AUSCULTATION: clear to auscultation bilaterally Cardio: COMMON NORMALS: regular rate and regular rhythm RATE: regular rate RHYTHM: regular rhythm GI: COMMON NORMALS: Normal to inspection, nondistended, normoactive bowel sounds present, Soft to palpation and no masses PALPATION: Yes Soft to palpation Neuro: CARLOS COMA SCALE: document GCS findings Carlos coma scale eye opening: To sound [place] coma scale verbal response: Confused [place] coma scale motor response: Obey commands Bea[place] coma scale total score: 13 COMMON NORMALS: CN's II-XII intact bilaterally, no focal motor deficits and no sensory deficits noted SENSORIUM/ORIENTATION: Yes lethargic Course Vital Signs: Vital signs: Vital Signs Temperature 97.7 F 10/05/20 00:59 Pulse Rate 64 10/05/20 02:10 Respiratory Rate 16 10/05/20 05:10 Blood Pressure 90/30 10/05/20 05:44 Pulse Oximetry 95 10/05/20 05:44 MDM - Altered Mental Status MDM Narrative: Medical decision making narrative: 25-year-old male with altered mental status that is been transient. He is rested comfortably since his episode in the lobby. He has been awake, and walked in the ER. His laboratory is benign. His head CT is negative. His urinalysis is negative. His urine drug screen is positive for marijuana and methamphetamines. He will be allowed discharge. Lab Data: Labs: Lab Results 10/05/20 10/05/20 10/05/20 Range/Units 00:50 00:50 04:15 WBC 8.1 (4.0-10.0) 10^3/ uL RBC 4.63 (4.1-5.3) 10^6/u L Hgb 13.4 (11.7-16.6) g/dL Hct 40.5 L (42.0-52.0) % MCV 87.5 (80-94) fL MCH 28.9 (28.0-34.0) pg MCHC 33.1 (30.0-36.0) g/dL RDW 13.5 (12.1-15.1) % Plt Count 319 (130-400) 10^3/c mm MPV 9.0 (7.4-10.4) fL Neut % (Auto) 47.7 % Lymph % (Auto) 38.1 % Garza % (Auto) 8.7 % Eos % (Auto) 4.1 % Baso % (Auto) 1.0 % Neut # (Auto) 3.85 (1.8-7.7) 10^3/u L Lymph # (Auto) 3.1 (0.8-4.8) 10^3/u L Garza # (Auto) 0.7 (0.2-0.9) 10^3/u L Eos # (Auto) 0.3 (0.0-0.8) 10^3/u L Baso # (Auto) 0.1 (0.0-0.1) 10^3/u L Nucleated RBC % (a uto) 0 % Nucleated RBCs # 0.0 /100WBC Sodium 138 (136-145) mmol/L Potassium 3.8 (3.5-5.1) mmol/L Chloride 101 (98-107) mmol/L Carbon Dioxide 27 (22-29) mmol/L Anion Gap 13.8 (5-19) BUN 12 (6-20) mg/dL Creatinine 0.9 (0.7-1.2) mg/dL GFR Calculation 104.6 (90-130) mL/min Glucose 79 (65-115) mg/dL Calculated Osmolal ity 285 (285-295) mOsm/k g Calcium 8.7 (8.5-10.5) mg/dL Total Bilirubin 0.3 (0.15-1.2) mg/dL AST 17 (0-40) U/L ALT 17 (0-41) U/L Alkaline Phosphata se 92 (40-130) IU/L Creatine Kinase 320 H (39-308) U/L C-Reactive Protein 3.9 (0.0-4.9) mg/L Total Protein 6.8 (6.6-8.7) g/dL Albumin 4.3 (3.5-5.2) g/dL Globulin 2.5 (1.3-4.6) g/dL Urine Color Yellow (Yellow) Urine Appearance Hazy A (CLEAR) Urine pH 7 (5-7) Ur Specific Gravit y 1.015 (1.005-1.030) Urine Protein Neg (Negative) Urine Glucose (UA) Norm (Normal) Urine Ketones Negative (Negative) Urine Blood Neg (Negative) Urine Nitrate Negative (Negative) Urine Bilirubin Neg (Negative) Urine Urobilinogen 1 H (Negative) mg/dL Ur Leukocyte Yudith ase Negative (Negative) Urine RBC 0-4 H (0-2) /hpf Urine WBC 0-4 H (0-5) /hpf Ur Squamous Epith Cells 0-4 H (0-5) /hpf Amorphous Sediment 4+ /hpf Urine Bacteria Trace (NONE) /hpf Urine Opiates Scre en (Negative) ng/mL Ur Barbiturates Sc reen (Negative) ng/mL Ur Phencyclidine S crn (Negative) ng/mL Ur Amphetamines Sc reen (Negative) ng/mL U Benzodiazepines Scrn (Negative) ng/mL Urine Cocaine Scre en (Negative) ng/mL U Marijuana (THC) Screen (Negative) ng/mL Ethyl Alcohol < 10 (0-10) mg/dL 10/05/20 Range/Units 04:15 WBC (4.0-10.0) 10^3/ uL RBC (4.1-5.3) 10^6/u L Hgb (11.7-16.6) g/dL Hct (42.0-52.0) % MCV (80-94) fL MCH (28.0-34.0) pg MCHC (30.0-36.0) g/dL RDW (12.1-15.1) % Plt Count (130-400) 10^3/c mm MPV (7.4-10.4) fL Neut % (Auto) % Lymph % (Auto) % Garza % (Auto) % Eos % (Auto) % Baso % (Auto) % Neut # (Auto) (1.8-7.7) 10^3/u L Lymph # (Auto) (0.8-4.8) 10^3/u L Garza # (Auto) (0.2-0.9) 10^3/u L Eos # (Auto) (0.0-0.8) 10^3/u L Baso # (Auto) (0.0-0.1) 10^3/u L Nucleated RBC % (a uto) % Nucleated RBCs # /100WBC Sodium (136-145) mmol/L Potassium (3.5-5.1) mmol/L Chloride (98-107) mmol/L Carbon Dioxide (22-29) mmol/L Anion Gap (5-19) BUN (6-20) mg/dL Creatinine (0.7-1.2) mg/dL GFR Calculation (90-130) mL/min Glucose (65-115) mg/dL Calculated Osmolal ity (285-295) mOsm/k g Calcium (8.5-10.5) mg/dL Total Bilirubin (0.15-1.2) mg/dL AST (0-40) U/L ALT (0-41) U/L Alkaline Phosphata se (40-130) IU/L Creatine Kinase (39-308) U/L C-Reactive Protein (0.0-4.9) mg/L Total Protein (6.6-8.7) g/dL Albumin (3.5-5.2) g/dL Globulin (1.3-4.6) g/dL Urine Color (Yellow) Urine Appearance (CLEAR) Urine pH (5-7) Ur Specific Gravit y (1.005-1.030) Urine Protein (Negative) Urine Glucose (UA) (Normal) Urine Ketones (Negative) Urine Blood (Negative) Urine Nitrate (Negative) Urine Bilirubin (Negative) Urine Urobilinogen (Negative) mg/dL Ur Leukocyte Yudith ase (Negative) Urine RBC (0-2) /hpf Urine WBC (0-5) /hpf Ur Squamous Epith Cells (0-5) /hpf Amorphous Sediment /hpf Urine Bacteria (NONE) /hpf Urine Opiates Scre en Negative (Negative) ng/mL Ur Barbiturates Sc reen Negative (Negative) ng/mL Ur Phencyclidine S crn Negative (Negative) ng/mL Ur Amphetamines Sc reen Positive H (Negative) ng/mL U Benzodiazepines Scrn Negative (Negative) ng/mL Urine Cocaine Scre en Negative (Negative) ng/mL U Marijuana (THC) Screen Positive H (Negative) ng/mL Ethyl Alcohol (0-10) mg/dL Discharge Plan Discharge Patient Disposition: Home Clinical Impression: Methamphetamine abuse Altered mental status Qualifiers: Altered mental status type: transient alteration of awareness Qualified Code(s): R40.4 - Transient alteration of awareness Condition: Stable Prescriptions: No Action olanzapine 5 mg Tablet 5 mg PO BEDTIME Qty: 30 RF: 0 escitalopram oxalate 10 mg Tablet 5 mg PO DAILY Qty: 30 RF: 0 cephalexin 500 mg capsule 500 mg PO BID 7 Days Qty: 14 RF: 0 ibuprofen 800 mg tablet 800 mg PO Q8H PRN (Reason: pain) Qty: 14 RF: 0 Discharge Orders: Discharge ED (Routine); Ordered 10/05/20 Ordered By: Jt Del Castillo Discharge Diet: Usual diet Discharge Activity: Increase activity as tolerated Patient Instructions: Methamphetamine Abuse (ED), Altered Mental Status (ED) Activity Restrictions/Additional Instructions: Avoid illicit substances. Drink plenty of water for the next 48 hours. Coding Level of Care Code ED Table Worker Packager for Farideh Moreno
== END 2020-10-05 05:30 | disposition home or self-care (01) ==
PROVIDERS: Emergency Provider Emergency Medicine
DX: R40.4 Transient alteration of awareness (principal); F15.10 Other stimulant abuse, uncomplicated; F17.210 Nicotine dependence, cigarettes, uncomplicated
CPT/HCPCS: 70450; 72125; 80053; 80306; 80307; 81001; 82550; 85025; 86140; 93005; 99283

== ENCOUNTER 2020-10-05 05:47 | Inpatient (IN) | payer MEDICAID, SELFPAY ==
[2020-10-05 06:22] VITALS: BP 130/59; PULSE 71; RESP 14; TEMP 36.9; O2SAT 98; BMI 24.3
--- NOTE | 2020-10-05 06:33 | W.ED.PSYCH ---
HPI - Psych General: Chief Complaint: Psychiatric Symptoms Stated Complaint: Suicidal/Confusion Time Seen by Provider: 10/05/20 06:25 Source: patient Mode of arrival: ambulatory Limitations: no limitations History of Present Illness: HPI Narrative: see nursing assessment. pt just discharged from ER a few minutes ago. pt now c/o being suicidal and wants to be admitted to psych unit. pt had L forearm and hand lacerations repaired earlier tonight after punching a window at home. complaint: suicidal ideation and feels depressed Onset (ago): unknown Duration: constant History of same: Yes Relieving factors: none Exacerbating factors: drug use and other (stress) Context: recent drug abuse Associated psychiatric symptoms: depression and suicidal ideation Associated symptoms: Reports depression and suicidal ideation; Deny auditory hallucinations, visual hallucinations, delusions or homicidal ideation Treatments prior to arrival: none If self harm: admits thoughts of self harm Review of Systems Const: Denies: fever(s) or chills Eyes: Denies: change in vision ENMT: Denies: throat pain Card: Denies: chest pain or palpitations Resp: Denies: dyspnea or wheezing GI: Denies: abdominal pain, nausea or vomiting : Denies: flank pain Musc: Reports: other (previous lacerations to L upper extremity(repaired/dressed earlier visit)); Denies: neck pain or back pain Skin/Breast: Denies: rash or pruritus Neuro: Denies: headache(s) or numbness in extremities Psych: Reports: depression and suicidal ideation; Denies: visual hallucinations, auditory hallucinations or homicidal ideation Gianfranco/Lymph: Denies: enlarged lymph nodes PFSH ED PFSH: Medical History Alcohol abuse Marijuana abuse Polysubstance abuse Surgical History H/O peritonsillar abscess drainage No pertinent past surgical history Family History Denies family history of Cancer Social History Smoking and tobacco status: current every day smoker cigarettes Alcohol intake: current Alcohol intake frequency: few times a week Physical Exam Const: COMMON NORMALS: no acute distress, average body habitus, patient oriented x3, no limitations, healthy appearing, alert and well nourished EXAM LIMITATIONS: altered mental status GENERAL APPEARANCE: cooperative HENMT: COMMON NORMALS: normocephalic and atraumatic HEAD & SCALP: normocephalic and atraumatic FACE & SINUS: normal facial exam Eye: COMMON NORMALS: EOMs intact bilaterally Neck/C-Spine: COMMON NORMALS: full ROM, no lymphadenopathy, supple and no meningeal signs GENERAL: Yes normal visual inspection Lymph: LYMPHATIC: no lymphadenopathy noted Chest: COMMONS NORMALS: normal inspection of the chest and normal palpation of entire chest wall CHEST: No Ecchymosis present and No rash Resp: COMMON NORMALS: normal respiratory effort, No retractions and clear to auscultation bilaterally EFFORT & INSPECTION: No respiratory distress AUSCULTATION: clear to auscultation bilaterally Cardio: COMMON NORMALS: regular rate, regular rhythm and Peripheral pulses 2+ throughout JUGULAR VENOUS DISTENTION: no JVD RATE: regular rate RHYTHM: regular rhythm PERIPHERAL PULSES: Peripheral pulses 2+ throughout GI: COMMON NORMALS: Normal to inspection, nondistended, normoactive bowel sounds present and non-tender : COMMON NORMALS: Yes no CVA tenderness BLADDER/KIDNEY EXAM: Yes no CVA tenderness Back/Pelvis: COMMON NORMALS: no CVA tenderness Extremity: COMMON NORMALS: normal to inspection, full ROM and capillary refill normal Neuro: COMMON NORMALS: patient oriented x3, CN's II-XII intact bilaterally, no focal motor deficits and no sensory deficits noted SENSORIUM/ORIENTATION: Yes alert MENINGEAL SIGNS: Yes no meningeal signs Psych: COMMON NORMALS: mental status grossly normal, Normal thought process present and speech normal ACTIVITY/MOTOR BEHAVIOR: Yes appropriate eye contact SPEECH: Yes normal speech MOOD & AFFECT: Yes anxious THOUGHT PROCESS: Normal thought process present THOUGHT CONTENT: Yes Suicidality present (presently suicidal) and No delusions Skin: COMMON NORMALS: no rashes or lesions noted GENERAL SKIN EXAM: no rashes or lesions noted OTHER: pt has multiple dressed lacerations to L forearm and hand that were treated earlier this am in the ER. no active bleeding. healing well Course Vital Signs: Vital signs: Vital Signs Temperature 98.4 F 10/05/20 06:22 Pulse Rate 71 10/05/20 06:22 Respiratory Rate 14 10/05/20 06:22 Blood Pressure 130/59 10/05/20 06:22 Pulse Oximetry 98 10/05/20 06:22 MDM - Psych MDM Narrative: Medical decision making narrative: pt requesting admit to npu. see previous labs done earlier today d/w dr. hernandez. will admit to npu. Lab Data: Attestation: I reviewed the patient's lab results. Labs: see labs from earlier. Positive for meth and marijuana. Discharge Plan Discharge Patient Disposition: Admitted As Inpatient Clinical Impression: Methamphetamine abuse, Suicidal ideation Depression Qualifiers: Depression Type: major depressive disorder Major depression recurrence: recurrent Active/Remission status: currently active Major depression episode severity: moderate Qualified Code(s): F33.1 - Major depressive disorder, recurrent, moderate Condition: Stable Coding Level of Care Code ED Home Health Speech Therapist for Farideh Fwanitha Exam Comprehensive
[2020-10-05 07:02] VITALS: RESP 14; TEMP 36.9; O2SAT 98
[2020-10-05 07:10] VITALS: BP 133/73; PULSE 87; RESP 17; TEMP 36.6; O2SAT 99
--- NOTE | 2020-10-05 13:13 | PM.NHP ---
Providers/Chief Complaint Admitting Physician: Rajan Coto DO Chief Complaint: Suicidal/Confusion HPI NPU History of Present Illness Mario Alberto Figueroa Jr is a 25 year old male presented on 3 occasions overnight after punching his hand through glass while on methamphetamine and cannabis. Subsequently presented to the hospital again but was discharged only to present again stating that he was suicidal and further clarified during initial interview that his mother was not letting him back into the house at which time he returned to the emergency department stating he was suicidal. Patient currently reporting depressive symptoms in the context of multiple ongoing life stressors, reports passive suicidal ideation although makes statements that he typically does of I think I might slit my neck. Patient with no reported recent self-harm behavior or suicide attempts. Patient reporting auditory hallucinations of whispers, no visual destinations, no delusions Psychiatric review of systems is otherwise negative. Patient states that he was noncompliant with psychiatric follow-up and states that he was noncompliant with medications after discharge from previous hospitalization at this facility. Reports intermittently staying with his mother although apparently continues to get into frequent altercations and arguments with family members and others. Review of Systems General: Reports: 10 or more systems reviewed and unremarkable except in HPI and below Meds NPU Home Medications Medication Instructions Recorded Confirmed Last Taken Type escitalopram oxalate 5 mg PO DAILY #30 tab 08/19/20 Unknown Rx olanzapine 5 mg PO BEDTIME #30 tab 08/19/20 Unknown Rx cephalexin 500 mg PO BID 7 Days #14 cap 10/04/20 Unknown Rx ibuprofen 800 mg PO Q8H PRN #14 tab 10/04/20 Unknown Rx Allergies Allergy/AdvReac Type Severity Reaction Status Date / Time atomoxetine [From Strattera] Allergy Unknown Verified 10/01/20 05:33 red dye Allergy Unknown Verified 10/01/20 05:33 PFSH NPU PFSH: Medical History Alcohol abuse Marijuana abuse Polysubstance abuse Surgical History H/O peritonsillar abscess drainage No pertinent past surgical history Family History Denies family history of Cancer Social History Smoking and tobacco status: current every day smoker cigarettes Alcohol intake: current Alcohol intake frequency: few times a week Other Psychiatric History: Other Psychiatric History: Per previous admissions, continues to be noncompliant with psychiatric follow-up and medication Mental Status Exam MSE Comments: Lying in bed, poor eye contact, irritable but cooperative somewhat with interview, occasionally restless, moving his legs Psychomotor activity is neither increased outside of above restlessness, no agitation Speech is normal rate and volume, spontaneous, fair articulation, not pressured I feel horrible, constricted affect, not labile Alert and oriented to person, place, time, situation Memory and concentration are fair to intact per interview Intellectual functioning appears to be average at best based on vocabulary, interview Thought process, linear but brief, no flight of ideas, no looseness of associations Thought content, no stated delusions, does not appear to be attending to any internal stimuli, no reported suicidal or homicidal ideation Insight and judgment are fair Vitals/I&O/Wt Last Vital Signs Temp 97.9 F 10/05/20 07:10 Pulse 87 10/05/20 07:10 Resp 17 10/05/20 07:10 BP 133/73 10/05/20 07:10 Pulse Ox 99 10/05/20 07:10 Weight last 48 hrs Weight 74.843 kg A&P Assessment and plan (1) Suicidal ideation: Status: Acute (2) Depression: Status: Acute Qualifiers: Active/Remission status: currently active Depression Type: major depressive disorder Major depression episode severity: moderate Major depression recurrence: recurrent Qualified Code(s): F33.1 - Major depressive disorder, recurrent, moderate (3) Polysubstance abuse: Status: Acute (4) Methamphetamine abuse: Status: Acute (5) Cannabis abuse: Status: Acute Additional A&P Information Patient dissipating in interview, presented to the emergency department on 3 occasions last evening with altered mental status under the influence of cannabis and methamphetamine but had punched a window with laceration to his hands and wrists and was repaired and discharged but presented on 2 subsequent occasions with his last presentation he declared suicidal ideation evidently after not being able to return to his mother's house and had no place to go. Patient denies any interval psychiatric treatment since last discharge from this facility mid August. As with last admission who presents after a recent argument with family, stating he is homeless, presents in immature, angry, irritable manner and does not appear to be disorganized, internally preoccupied or attending to internal stimuli and does not provide any statements or evidence of recent mood episodes outside the context of substance abuse. Per previous presentation, patient noncompliant with follow-up although reports seeing a provider in the [place] area after recent admission since last admission at this facility in August 2020. He would benefit from restarting low-dose antipsychotic and antidepressant targeting mood as well as post discharge substance counseling/treatment. INVOLUNTARY ADMIT to inpatient psychiatry START olanzapine 5 mg at bedtime START Lexapro 5 mg daily Patient was encouraged to participate in unit activities to include group sessions, unit milieu Coordinate with social science analyst for post discharge mental health care follow-up Involuntary Hold Information 96 Hour Hold: 96 Hour Involuntary Admission: No 96 Hour Hold Ending Date: 08/20/20 96 Hour Hold Ending Time: 22:55 Attestations NPU Medical Necessity Statement*: Psychiatric hospitalization is indicated for medication stabilization, coordination for safe discharge Anticipate hospital stay to exceed 2 midnights Time Spent in Patient Care: Greater than 35 minutes (>than 50% of time spent in counselling and/or direct pt care on unit). Coding Level of Care Code Acute Product Development Consultant for Farideh Moreno Diagnoses Suicidal ideation R45.851 Depression F33.1 Active/Remission status: currently active Depression Type: major depressive disorder Major depression episode severity: moderate Major depression recurrence: recurrent Polysubstance abuse F19.10 Methamphetamine abuse F15.10 Cannabis abuse F12.10
[2020-10-05 14:00] VITALS: BP 103/55; PULSE 87; RESP 16; TEMP 36.6; O2SAT 98
[2020-10-05] MEDS: OLANZapine 5 mg TABLET PO (20:40)
[2020-10-05 21:23] VITALS: BP 135/88; PULSE 81; RESP 15; TEMP 37.2; O2SAT 96
[2020-10-06 05:08] VITALS: BP 101/63; PULSE 65; RESP 15; TEMP 36.6; O2SAT 98
[2020-10-06] MEDS: escitalopram 10 mg Tablet 5 MG PO (08:42)
--- NOTE | 2020-10-06 09:58 | PM.NPN ---
Subjective NPU Subjective: Interval history: Patient is lying in bed, dozing off during interview, denies any interval complaints Denies any interval suicidal ideation Reports feeling tired but states that he has not had any interval depressive symptoms Denies any interval auditory or visual destinations Per staff report, calm, cooperative, no interval behavioral disturbances, compliant with medication Mental Status Exam MSE Comments: Lying in bed, poor eye contact, sleeping and only arouses briefly to answer questions Psychomotor activity is neither increased nor decreased, no agitation Speech is low volume, brief secondary to dozing off, not pressured I am tired, congruent affect, not labile Tired, not able to assess current orientation Memory and concentration, unable to assess at this time Thought process, linear but brief, no flight of ideas, no looseness of associations Thought content, no stated delusions, does not appear to be attending to any internal stimuli, no reported suicidal or homicidal ideation Insight and judgment are fair Vitals/I&O/Wt Last Vital Signs Temp 97.8 F 10/06/20 05:08 Pulse 65 10/06/20 05:08 Resp 15 10/06/20 05:08 BP 101/63 10/06/20 05:08 Pulse Ox 98 10/06/20 05:08 Weight last 48 hrs Weight 74.843 kg A&P Assessment and plan (1) Suicidal ideation: Status: Acute (2) Depression: Status: Acute Qualifiers: Active/Remission status: currently active Depression Type: major depressive disorder Major depression episode severity: moderate Major depression recurrence: recurrent Qualified Code(s): F33.1 - Major depressive disorder, recurrent, moderate (3) Polysubstance abuse: Status: Acute (4) Methamphetamine abuse: Status: Acute (5) Cannabis abuse: Status: Acute Additional A&P Information Sleeping mostly since on the unit, likely withdrawing from methamphetamine, denying any psychotic symptoms, denies any suicidal ideation CONTINUE current medication, continue to monitor Involuntary Hold Information 96 Hour Hold: 96 Hour Involuntary Admission: No 96 Hour Hold Ending Date: 08/20/20 96 Hour Hold Ending Time: 22:55 Attestations NPU Medical Necessity Statement*: Continues to require psychiatric hospitalization for medication stabilization Coding Level of Care Code Acute Animal Care Supervisor for Farideh Moreno Diagnoses Suicidal ideation R45.851 Depression F33.1 Active/Remission status: currently active Depression Type: major depressive disorder Major depression episode severity: moderate Major depression recurrence: recurrent Polysubstance abuse F19.10 Methamphetamine abuse F15.10 Cannabis abuse F12.10
[2020-10-06 13:07] VITALS: BP 113/75; PULSE 60; RESP 18; TEMP 36; O2SAT 98
[2020-10-06 20:54] VITALS: BP 131/72; PULSE 72; RESP 18; TEMP 36.6; O2SAT 97
[2020-10-06] MEDS: OLANZapine 5 mg TABLET PO (21:44)
[2020-10-07 06:00] VITALS: BP 116/71; PULSE 80; RESP 14; TEMP 35.9; O2SAT 96
[2020-10-07] MEDS: escitalopram 10 mg Tablet 5 MG PO (09:09)
--- NOTE | 2020-10-07 13:20 | PM.NPN ---
Subjective NPU Subjective: Interval history: Continues to mostly lying in bed but has been getting up for meals, participating in unit milieu with no reports of any behavioral disturbances Reports improvement in mood, denies any interval suicidal ideation Denies any interval auditory or visual destinations Per staff report, calm, cooperative, compliant with medication Mental Status Exam MSE Comments: Lying in bed, initially rolled over away from the interviewer but sits up for interview, calm, cooperative, good eye contact Psychomotor activity is neither increased nor decreased, no agitation Speech is low volume, normal rate, not pressured I feel a little better, congruent affect, not labile Alert and oriented to person, place, time, situation Memory and concentration, fair to intact per interview Thought process, linear but brief, no flight of ideas, no looseness of associations Thought content, no stated delusions, no hallucinations, no reported suicidal or homicidal ideation Insight and judgment are fair Vitals/I&O/Wt Last Vital Signs Temp 96.7 F L 10/07/20 06:00 Pulse 80 10/07/20 06:00 Resp 14 10/07/20 06:00 BP 116/71 10/07/20 06:00 Pulse Ox 96 10/07/20 06:00 A&P Assessment and plan (1) Suicidal ideation: Status: Acute (2) Depression: Status: Acute Qualifiers: Active/Remission status: currently active Depression Type: major depressive disorder Major depression episode severity: moderate Major depression recurrence: recurrent Qualified Code(s): F33.1 - Major depressive disorder, recurrent, moderate (3) Polysubstance abuse: Status: Acute (4) Methamphetamine abuse: Status: Acute (5) Cannabis abuse: Status: Acute Additional A&P Information Currently denying any psychotic symptoms, denies any suicidal ideation CONTINUE current medication, continue to monitor Involuntary Hold Information 96 Hour Hold: 96 Hour Involuntary Admission: No 96 Hour Hold Ending Date: 08/20/20 96 Hour Hold Ending Time: 22:55 Attestations NPU Medical Necessity Statement*: Continues to require psychiatric hospitalization for medication stabilization, coordination for safe discharge Coding Level of Care Code Acute Getter Operator for Farideh Moreno Diagnoses Suicidal ideation R45.851 Depression F33.1 Active/Remission status: currently active Depression Type: major depressive disorder Major depression episode severity: moderate Major depression recurrence: recurrent Polysubstance abuse F19.10 Methamphetamine abuse F15.10 Cannabis abuse F12.10
[2020-10-07 14:00] VITALS: BP 100/55; PULSE 65; RESP 16; TEMP 36.6; O2SAT 96
[2020-10-07] MEDS: OLANZapine 5 mg TABLET PO (21:10)
[2020-10-07 22:00] VITALS: BP 127/85; PULSE 67; RESP 17; TEMP 36.8; O2SAT 96
[2020-10-07] MEDS: hyDROXYzine 25 mg Capsule 50 MG PO (22:10)
--- NOTE | 2020-10-07 22:11 | PC.NURSE ---
Addendum entered by Dacia June RN 10/07/20 22:43: Pt is resting comfortably in his room. no sign of anxiety noted. Original Note: vistaril 50mg pO given for anxiety. pt report no pain, no active SI/HI, No AH/VH at this time, Pt states he needs to be able to rest and can not. pt also says he has alot of gas. Pt requested medication for this
[2020-10-08 06:00] VITALS: BP 120/75; PULSE 55; RESP 14; TEMP 37; O2SAT 96
--- NOTE | 2020-10-08 07:12 | PC.RESP ---
SMOKING CESSATION INFORMATION SENT TO PATIENT.
[2020-10-08] MEDS: escitalopram 10 mg Tablet 5 MG PO (09:17)
[2020-10-08] MEDS: acetaminophen 325 mg Tablet 650 MG PO (09:35)
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
[2020-10-08 10:17] VITALS: BP 120/75; PULSE 55; RESP 14; TEMP 37; O2SAT 96
== END 2020-10-08 15:37 | disposition home or self-care (01) | DRG 885 ==
LOC: ER 06:38 → NP 07:46
PROVIDERS: Admitting Provider Psychiatry & Neurology Psychiatry; Emergency Provider Family Medicine; Visit Provider Psychiatry & Neurology Psychiatry
DX: F33.1 Major depressive disorder, recurrent, moderate (principal); R45.851 Suicidal ideations; F15.10 Other stimulant abuse, uncomplicated; F12.10 Cannabis abuse, uncomplicated; F19.10 Other psychoactive substance abuse, uncomplicated; F17.210 Nicotine dependence, cigarettes, uncomplicated
CPT/HCPCS: 99285

== ENCOUNTER 2021-01-09 00:04 | Emergency (ER) | payer MEDICAID, SELFPAY ==
[2021-01-08 23:53] VITALS: BP 135/61; PULSE 72; RESP 18; TEMP 37.1; O2SAT 96; BMI 23.6
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
[2021-01-09 01:40] VITALS: BP 135/61; PULSE 72; RESP 18; O2SAT 96
== END 2021-01-09 01:41 | disposition home or self-care (01) ==
PROVIDERS: Emergency Provider Emergency Medicine
DX: S61.212A Laceration without foreign body of right middle finger without damage to nail, initial encounter (principal); F17.210 Nicotine dependence, cigarettes, uncomplicated; W26.0XXA Contact with knife, initial encounter
CPT/HCPCS: 99283

== ENCOUNTER 2021-04-01 05:13 | Emergency (ER) | payer MEDICAID, SELFPAY ==
--- NOTE | 2021-04-01 05:21 | W.ED.PSYCHS ---
HPI - Psych General: Stated Complaint: SI Time Seen by Provider: 04/01/21 05:18 Source: patient, EMS and police Mode of arrival: EMS Limitations: no limitations History of Present Illness: HPI Narrative: 25-year-old male who was pulled over tonight by police and [employer] he does have a history of methamphetamine abuse that arrested him as he had warrants out for his rest and [facility]. Once he arrived to [facility] he started became violent and stay in the 1 to kill himself so he called EMS and brought him here for suicidality. He does have warrants for his arrest here in [facility] they are here as well. Patient states he has not taken his lithium in 5 to 6 days and it is causing him severe depression and states that he has been having suicidal thoughts with no specific plan he denies any worsening improving factors. Associated symptoms: Reports suicidal ideation Review of Systems Const: Denies: fever(s), chills, body aches or change in appetite Eyes: Denies: blurry vision or eye discomfort ENMT: Denies: throat pain or dental pain Card: Denies: chest pain Resp: Denies: dyspnea GI: Denies: abdominal pain, nausea, vomiting or diarrhea : Denies: dysuria Musc: Denies: neck pain or back pain Skin/Breast: Denies: rash Neuro: Denies: headache(s) Psych: Reports: suicidal ideation Gianfranco/Lymph: Denies: easy bruising All/Imm: Denies: urticaria PFSH ED PFSH: Medical History Alcohol abuse Marijuana abuse Polysubstance abuse Psychiatric care Surgical History H/O peritonsillar abscess drainage No pertinent past surgical history Family History Denies family history of Cancer Social History Smoking and tobacco status: current every day smoker cigarettes Alcohol intake: current Alcohol intake frequency: few times a week Physical Exam Const: COMMON NORMALS: no acute distress, patient oriented x3 and healthy appearing HENMT: COMMON NORMALS: normocephalic and atraumatic HEAD & SCALP: normocephalic and atraumatic Eye: COMMON NORMALS: Equal, round and reactive pupils present and EOMs intact bilaterally PUPIL: Yes Equal, round and reactive pupils present Neck/C-Spine: COMMON NORMALS: full ROM and supple Chest: COMMONS NORMALS: normal inspection of the chest and normal palpation of entire chest wall Resp: COMMON NORMALS: normal respiratory effort, No retractions, No use of accessory muscles and clear to auscultation bilaterally AUSCULTATION: clear to auscultation bilaterally Cardio: COMMON NORMALS: regular rate, regular rhythm and No murmurs present (Cardio) RATE: regular rate RHYTHM: regular rhythm GI: COMMON NORMALS: Normal to inspection, nondistended, normoactive bowel sounds present, Soft to palpation, non-tender and no masses PALPATION: Yes Soft to palpation Extremity: COMMON NORMALS: normal to inspection and full ROM Neuro: COMMON NORMALS: patient oriented x3, moves all extremities and no focal motor deficits Psych: COMMON NORMALS: mental status grossly normal, Normal thought process present and cooperative MOOD & AFFECT: Yes depressed mood THOUGHT PROCESS: Normal thought process present THOUGHT CONTENT: Yes Suicidality present Skin: COMMON NORMALS: no rashes or lesions noted and no wounds GENERAL SKIN EXAM: no rashes or lesions noted Discharge Plan Discharge Prescriptions: No Action olanzapine 5 mg Tablet 5 mg PO BEDTIME Qty: 30 RF: 0 escitalopram oxalate 10 mg Tablet 5 mg PO DAILY Qty: 30 RF: 0 olanzapine 5 mg Tablet 5 mg PO BEDTIME Qty: 30 RF: 0 escitalopram oxalate 10 mg Tablet 5 mg PO DAILY Qty: 30 RF: 0 ibuprofen 800 mg tablet 800 mg PO Q8H PRN (Reason: pain) Qty: 14 RF: 0 Coding Level of Care Code ED Dry Goods Inspector for Farideh Moreno
[2021-04-01 05:22] VITALS: BP 103/80; PULSE 103; RESP 19; O2SAT 97; BMI 28.0
[2021-04-01] MEDS: LORazepam 2 mg Tablet PO (05:47)
[2021-04-01] MEDS: lithium carbonate 300 mg Capsule 600 MG PO (05:47)
[2021-04-01 05:58] VITALS: BP 103/80; PULSE 103; RESP 19; O2SAT 97
--- NOTE | 2021-04-01 12:32 | DCPLANNER ---
merchandising execution manager had message to speak with patient about services at [facility]. merchandising execution manager called phone number in chart, unable to speak with patient at this time, and unable to leave a voicemail for patient.
== END 2021-04-01 05:55 | disposition home or self-care (01) ==
PROVIDERS: Emergency Provider Emergency Medicine
DX: R45.851 Suicidal ideations (principal); F17.210 Nicotine dependence, cigarettes, uncomplicated
CPT/HCPCS: 99283

== ENCOUNTER 2021-04-01 21:33 | Emergency (ER) | payer MEDICAID, SELFPAY ==
[2021-04-01 21:43] VITALS: BP 124/98; PULSE 88; RESP 16; TEMP 37; O2SAT 98; BMI 23.7
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
--- NOTE | 2021-04-01 21:44 | CTR_ITS ---
PROCEDURE INFORMATION: Exam: CT Angiography Neck With Contrast Exam date and time: 04/01/2021 9:44 PM Age: 25 years old Clinical indication: Injury or trauma; Constriction/strangulation TECHNIQUE: Imaging protocol: Computed tomography angiography of the neck with contrast. 3D rendering (Not supervised by radiologist): MIP and/or 3D reconstructed images were created by the technologist. Radiation optimization: All CT scans at this facility use at least one of these dose optimization techniques: automated exposure control; mA and/or kV adjustment per patient size (includes targeted exams where dose is matched to clinical indication); or iterative reconstruction. Contrast material: OMNI 350; Contrast volume: 95 ml; Contrast route: INTRAVENOUS (IV); COMPARISON: CT neck w con* [id number] 03/12/2020 5:51 AM RADIATION DOSE METRICS: Total DLP (mGy-cm): 1470.34 FINDINGS: Right common carotid artery: No stenosis. No dissection or occlusion. Right internal carotid artery: No stenosis of the extracranial segment. No dissection or occlusion. Right external carotid artery: No occlusion or stenosis of the origin. Left common carotid artery: No stenosis. No dissection or occlusion. Left internal carotid artery: No stenosis of the extracranial segment. No dissection or occlusion. Left external carotid artery: No occlusion or stenosis of the origin. Right vertebral artery: No stenosis. No dissection or occlusion. Left vertebral artery: No stenosis. No dissection or occlusion. Soft tissues: No soft tissue swelling is visualized. Bones/joints: No acute fracture. Trachea: The airway is patent. A tiny tracheal diverticulum is seen at the thoracic inlet. CT/CT angio neck [id number] IMPRESSION: Patent neck carotid and vertebral arteries. No evidence of injury. REFERENCES: NASCET CRITERIA. The degree of internal carotid artery stenosis is based on NASCET criteria. Normal is no stenosis. Mild is less than 50% stenosis. Moderate is 50-69% stenosis. Severe is 70% to 99% stenosis. Total occlusion is no detectable patent lumen.
--- NOTE | 2021-04-01 22:24 | ED.C_ITS ---
HPI - Psych General: Chief Complaint: Psychiatric Symptoms Stated Complaint: SI Time Seen by Provider: 04/01/21 21:37 Source: patient Mode of arrival: ambulatory Limitations: no limitations History of Present Illness: HPI Narrative: 25-year-old male who seen this morning after he was arrested he is arrested and claimed he was suicidal and brought here patient was evaluated by Dr. Steele at that time and felt that he was not truly suicidal fell he is try to get out of retirement and recommended discharge to police under suicide precaution. I did discharge him informed the police clerk he is to be on suicide watch at retirement. Evidently the dayshift staff at the retirement did not know he was supposed to be on suicide precautions and he was not. He had had a phone in his room and tried to strangle himself with a phone cord. Patient has no discernible injuries here besides some redness to his neck he is in a c-collar he states that he just does not want to be in retirement at this time. Associated symptoms: Reports depression Review of Systems Const: Denies: fever(s), chills, body aches or change in appetite Eyes: Denies: blurry vision or eye discomfort ENMT: Denies: throat pain or dental pain Card: Denies: chest pain Resp: Denies: dyspnea GI: Denies: abdominal pain, nausea, vomiting or diarrhea : Denies: dysuria Musc: Denies: neck pain or back pain Skin/Breast: Denies: rash Neuro: Denies: headache(s) Psych: Reports: depression Gianfranco/Lymph: Denies: easy bruising All/Imm: Denies: urticaria PFSH ED PFSH: Medical History Alcohol abuse Marijuana abuse Polysubstance abuse Psychiatric care Surgical History H/O peritonsillar abscess drainage No pertinent past surgical history Family History Denies family history of Cancer Social History Smoking and tobacco status: current every day smoker cigarettes Alcohol intake: current Alcohol intake frequency: few times a week Physical Exam Const: COMMON NORMALS: patient oriented x3 GENERAL APPEARANCE: anxious HENMT: COMMON NORMALS: normocephalic and atraumatic HEAD & SCALP: normocephalic and atraumatic Eye: COMMON NORMALS: Equal, round and reactive pupils present and EOMs intact bilaterally PUPIL: Yes Equal, round and reactive pupils present Neck/C-Spine: OTHER: In c-collar slight erythema to neck anteriorly no deep wounds or severe ligature naidu Chest: COMMONS NORMALS: normal inspection of the chest and normal palpation of entire chest wall Resp: COMMON NORMALS: normal respiratory effort, No retractions, No use of accessory muscles and clear to auscultation bilaterally AUSCULTATION: clear to auscultation bilaterally Cardio: COMMON NORMALS: regular rate, regular rhythm and No murmurs present (Cardio) RATE: regular rate RHYTHM: regular rhythm GI: COMMON NORMALS: Normal to inspection, nondistended, normoactive bowel sounds present, Soft to palpation, non-tender and no masses PALPATION: Yes Soft to palpation Extremity: COMMON NORMALS: normal to inspection and full ROM Neuro: COMMON NORMALS: patient oriented x3, moves all extremities and no focal motor deficits Psych: COMMON NORMALS: mental status grossly normal, Normal thought process present and cooperative MOOD & AFFECT: Yes depressed mood THOUGHT PROCESS: Normal thought process present Skin: COMMON NORMALS: no rashes or lesions noted and no wounds GENERAL SKIN EXAM: no rashes or lesions noted Course Vital Signs: Vital signs: Vital Signs Temperature 98.6 F 04/01/21 21:43 Pulse Rate 88 04/01/21 21:43 Respiratory Rate 16 04/01/21 21:43 Blood Pressure 124/98 04/01/21 21:43 Pulse Oximetry 98 04/01/21 21:43 MDM - Psych MDM Narrative: Medical decision making narrative: Patient presents here with suicide attempt. I had patient evaluated by Dr. Steele who felt that he stay for discharge back to retirement. I did have extensive discussion with very important when he goes back to retirement that he is on suicide watch and precautions they understand he is stable for discharge. Imaging Data^: ct c spine: Radiologist's impression: [address] [address] [address] Scan Report Signed Patient: Mario Alberto Figueroa Jr Unit #: [id number] : 1995 Age/Sex: 25 / M ADM Date: 04/01/21 Loc: ER Room/Bed: Attending Dr: Ordering Provider/Ordering MD: Markus Tirado MD Date of Service: 04/01/21 Procedure(s): CT cervical spin wo con* [id number] Accession Number(s): [id number] Report Number: [id number] PROCEDURE INFORMATION: Exam: CT Cervical Spine Without Contrast Exam date and time: 04/01/2021 9:44 PM Age: 25 years old Clinical indication: Injury or trauma; Other: Attempted hanging; Constriction/strangulation TECHNIQUE: Imaging protocol: Computed tomography images of the cervical spine without contrast. Radiation optimization: All CT scans at this facility use at least one of these dose optimization techniques: automated exposure control; mA and/or kV adjustment per patient size (includes targeted exams where dose is matched to clinical indication); or iterative reconstruction. COMPARISON: CT cervical spin wo con* [id number] 10/05/2020 1:13 AM RADIATION DOSE METRICS: Total DLP (mGy-cm): 416.84 FINDINGS: Vertebrae: No acute fracture. Normal alignment. Soft tissues: No soft tissue swelling. Lungs: Lung apices are normal. CT/CT cervical spin wo con* [id number] IMPRESSION: No cervical spine fracture. Dictated By: Woo Kline MD Signed By: Woo Kline MD Other CT: Radiologist's impression: [address] [address] [address] Scan Report Signed Patient: Mario Alberto Figueroa Jr Unit #: [id number] : 1995 Age/Sex: 25 / M ADM Date: 04/01/21 Loc: ER Room/Bed: Attending Dr: Ordering Provider/Ordering MD: Markus Tirado MD Date of Service: 04/01/21 Procedure(s): CT angio neck 22219 Accession Number(s): [id number] Report Number: [id number] PROCEDURE INFORMATION: Exam: CT Angiography Neck With Contrast Exam date and time: 04/01/2021 9:44 PM Age: 25 years old Clinical indication: Injury or trauma; Constriction/strangulation TECHNIQUE: Imaging protocol: Computed tomography angiography of the neck with contrast. 3D rendering (Not supervised by radiologist): MIP and/or 3D reconstructed images were created by the technologist. Radiation optimization: All CT scans at this facility use at least one of these dose optimization techniques: automated exposure control; mA and/or kV adjustment per patient size (includes targeted exams where dose is matched to clinical indication); or iterative reconstruction. Contrast material: OMNI 350; Contrast volume: 95 ml; Contrast route: INTRAVENOUS (IV); COMPARISON: CT neck w con* [id number] 03/12/2020 5:51 AM RADIATION DOSE METRICS: Total DLP (mGy-cm): 1470.34 FINDINGS: Right common carotid artery: No stenosis. No dissection or occlusion. Right internal carotid artery: No stenosis of the extracranial segment. No dissection or occlusion. Right external carotid artery: No occlusion or stenosis of the origin. Left common carotid artery: No stenosis. No dissection or occlusion. Left internal carotid artery: No stenosis of the extracranial segment. No dissection or occlusion. Left external carotid artery: No occlusion or stenosis of the origin. Right vertebral artery: No stenosis. No dissection or occlusion. Left vertebral artery: No stenosis. No dissection or occlusion. Soft tissues: No soft tissue swelling is visualized. Bones/joints: No acute fracture. Trachea: The airway is patent. A tiny tracheal diverticulum is seen at the thoracic inlet. CT/CT angio neck [id number] IMPRESSION: Patent neck carotid and vertebral arteries. No evidence of injury. REFERENCES: NASCET CRITERIA. The degree of internal carotid artery stenosis is based on NASCET criteria. Normal is no stenosis. Mild is less than 50% stenosis. Moderate is 50-69% stenosis. Severe is 70% to 99% stenosis. Total occlusion is no detectable patent lumen. Dictated By: Woo Kline MD Signed By: Woo Kline MD Signed Date/Time: 04/01/212308 DD/ 43 Discharge Plan Discharge Patient Disposition: Home Clinical Impression: Suicidal ideation, Suicide attempt by hanging Condition: Stable Prescriptions: No Action olanzapine 5 mg Tablet 5 mg PO BEDTIME Qty: 30 RF: 0 escitalopram oxalate 10 mg Tablet 5 mg PO DAILY Qty: 30 RF: 0 olanzapine 5 mg Tablet 5 mg PO BEDTIME Qty: 30 RF: 0 escitalopram oxalate 10 mg Tablet 5 mg PO DAILY Qty: 30 RF: 0 ibuprofen 800 mg tablet 800 mg PO Q8H PRN (Reason: pain) Qty: 14 RF: 0 lithium carbonate 600 mg capsule 600 mg PO BID Qty: 60 RF: 0 Discharge Orders: Discharge ED (Routine); Ordered 04/01/21 Ordered By: Markus Tirado Discharge Diet: Advance as tolerated Discharge Activity: Resume usual activity Patient Instructions: Suicide Prevention (ED) Activity Restrictions/Additional Instructions: suicide precautions in retirement Coding Level of Care Code ED 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
[2021-04-01] MEDS: iohexol 350 mg/mL 100 mL Btl IV (23:25)
[2021-04-01 23:27] VITALS: BP 126/78; PULSE 78; RESP 16; O2SAT 99
--- NOTE | 2021-04-07 14:21 | DCPLANNER ---
cooperative manager had message to speak with patient about services at [facility]. cooperative manager called phone number in chart, unable to speak with patient and unable to leave a voicemail for patient.
== END 2021-04-01 23:29 | disposition home or self-care (01) ==
PROVIDERS: Emergency Provider Emergency Medicine
DX: R45.851 Suicidal ideations (principal); T14.91XA Suicide attempt, initial encounter; X83.8XXA Intentional self-harm by other specified means, initial encounter; Y92.143 Cell of prison as the place of occurrence of the external cause; F17.210 Nicotine dependence, cigarettes, uncomplicated
CPT/HCPCS: 70498; 72125; 99283; Q9967

== ENCOUNTER 2021-05-03 19:43 | Inpatient (IN) | payer MEDICAID, SELFPAY ==
[2021-05-03 19:48] VITALS: BP 138/52; PULSE 80; RESP 18; TEMP 36.2; O2SAT 100; BMI 22.1
--- NOTE | 2021-05-03 20:07 | W.ED.PSYCHS ---
HPI - Psych General: Chief Complaint: Psychiatric Symptoms Stated Complaint: si Time Seen by Provider: 05/03/21 19:57 Source: patient and police Mode of arrival: other (police) Limitations: no limitations History of Present Illness: 26-year-old male who has a history of schizophrenia. He states he has been in penitentiary and has not been taking his medication also has a history of methamphetamine abuse. States that he tried to hang himself with a cord in penitentiary has no ligature naidu no neck pain. Police are here and they are releasing him he states that he has just been having severe hallucinations and is suicidal and wants to kill himself. Denies any worsening improving factors. Associated symptoms: Reports depression and suicidal ideation Review of Systems Const: Denies: fever(s), chills, body aches or change in appetite Eyes: Denies: blurry vision or eye discomfort ENMT: Denies: throat pain or dental pain Card: Denies: chest pain Resp: Denies: dyspnea GI: Denies: abdominal pain, nausea, vomiting or diarrhea : Denies: dysuria Musc: Denies: neck pain or back pain Skin/Breast: Denies: rash Neuro: Denies: headache(s) Psych: Reports: anxiety, depression, paranoia and suicidal ideation Gianfranco/Lymph: Denies: easy bruising All/Imm: Denies: urticaria PFSH ED PFSH: Medical History Alcohol abuse Marijuana abuse Polysubstance abuse Psychiatric care Surgical History H/O peritonsillar abscess drainage No pertinent past surgical history Family History Denies family history of Cancer Social History Smoking and tobacco status: current every day smoker cigarettes Alcohol intake: current Alcohol intake frequency: few times a week Physical Exam Const: COMMON NORMALS: patient oriented x3 and healthy appearing GENERAL APPEARANCE: in distress HENMT: COMMON NORMALS: normocephalic and atraumatic HEAD & SCALP: normocephalic and atraumatic Eye: COMMON NORMALS: Equal, round and reactive pupils present and EOMs intact bilaterally PUPIL: Yes Equal, round and reactive pupils present Neck/C-Spine: COMMON NORMALS: full ROM and supple Chest: COMMONS NORMALS: normal inspection of the chest and normal palpation of entire chest wall Resp: COMMON NORMALS: normal respiratory effort, No retractions, No use of accessory muscles and clear to auscultation bilaterally AUSCULTATION: clear to auscultation bilaterally Cardio: COMMON NORMALS: regular rate, regular rhythm and No murmurs present (Cardio) RATE: regular rate RHYTHM: regular rhythm GI: COMMON NORMALS: Normal to inspection, nondistended, normoactive bowel sounds present, Soft to palpation, non-tender and no masses PALPATION: Yes Soft to palpation Extremity: COMMON NORMALS: normal to inspection and full ROM Neuro: COMMON NORMALS: patient oriented x3, moves all extremities and no focal motor deficits Psych: COMMON NORMALS: mental status grossly normal and cooperative MOOD & AFFECT: Yes elevated mood THOUGHT CONTENT: Yes Suicidality present and Yes Hallucination(s) present Skin: COMMON NORMALS: no rashes or lesions noted and no wounds GENERAL SKIN EXAM: no rashes or lesions noted Course Vital Signs: Vital signs: Vital Signs Temperature 97.1 F L 05/03/21 19:48 Pulse Rate 80 05/03/21 19:48 Respiratory Rate 18 05/03/21 19:48 Blood Pressure 138/52 05/03/21 19:48 Pulse Oximetry 100 05/03/21 19:48 MDM - Psych Medical Decision Making Patient presents here in police custody with history of schizophrenia hallucinations and suicidal ideations patient is being released by the police have spoke to Dr. Steele patient is medically cleared and will admit to psychiatric unit under 96-hour hold Lab Data : 05/03/21 20:10 05/03/21 20:10 Laboratory Results WBC 8.7 10^3/uL (4.0-10.0) 05/03/21 20:10 RBC 4.98 10^6/uL (4.1-5.3) 05/03/21 20:10 Hgb 14.5 g/dL (11.7-16.6) 05/03/21 20:10 Hct 43.5 % (42.0-52.0) 05/03/21 20:10 MCV 87.3 fl (80-94) 05/03/21 20:10 MCH 29.1 pg (28.0-34.0) 05/03/21 20:10 MCHC 33.3 g/dL (30.0-36.0) 05/03/21 20:10 RDW 12.9 % (12.1-15.1) 05/03/21 20:10 Plt Count 276 10^3/cmm (130-400) 05/03/21 20:10 MPV 8.8 fL (7.4-10.4) 05/03/21 20:10 Neut % (Auto) 54.0 % 05/03/21 20:10 Lymph % (Auto) 31.6 % 05/03/21 20:10 Bennett % (Auto) 6.7 % 05/03/21 20:10 Eos % (Auto) 6.8 % 05/03/21 20:10 Baso % (Auto) 0.7 % 05/03/21 20:10 Neut # (Auto) 4.68 10^3/uL (1.8-7.7) 05/03/21 20:10 Lymph # (Auto) 2.7 10^3/uL (0.8-4.8) 05/03/21 20:10 Bennett # (Auto) 0.6 10^3/uL (0.2-0.9) 05/03/21 20:10 Eos # (Auto) 0.6 10^3/uL (0.0-0.8) 05/03/21 20:10 Baso # (Auto) 0.1 10^3/uL (0.0-0.1) 05/03/21 20:10 Nucleated RBC % (auto) 0 % 05/03/21 20:10 Nucleated RBCs # 0.0 /100WBC 05/03/21 20:10 Discharge Plan Discharge Patient Disposition: Admitted As Inpatient Clinical Impression: Suicidal ideation, Chronic schizophrenia, Acute psychosis Condition: Stable Prescriptions: No Action olanzapine 5 mg Tablet 5 mg PO BEDTIME Qty: 30 0RF escitalopram oxalate 10 mg Tablet 5 mg PO DAILY Qty: 30 0RF olanzapine 5 mg Tablet 5 mg PO BEDTIME Qty: 30 0RF escitalopram oxalate 10 mg Tablet 5 mg PO DAILY Qty: 30 0RF ibuprofen 800 mg tablet 800 mg PO Q8H PRN (Reason: pain) Qty: 14 0RF lithium carbonate 600 mg capsule 600 mg PO BID Qty: 60 0RF Coding Level of Care Code ED Basket Weaver for Chg Fwd Exam Comprehensive
[2021-05-03 20:15] LABS: Basophils # 0.1 10^3/uL (0.0-0.1); Basophils % 0.7 %; Eosinophils # 0.6 10^3/uL (0.0-0.8); Eosinophils % 6.8 %; Hematocrit 43.5 % (42.0-52.0); Hemoglobin 14.5 g/dL (11.7-16.6); Lymphocytes # 2.7 10^3/uL (0.8-4.8); Lymphocytes % 31.6 %; Mean Corpuscular HGB Conc 33.3 g/dL (30.0-36.0); Mean Corpuscular Hemoglobin 29.1 pg (28.0-34.0); Mean Corpuscular Volume 87.3 fl (80-94); Mean Platelet Volume 8.8 fL (7.4-10.4); Monocytes # 0.6 10^3/uL (0.2-0.9); Monocytes % 6.7 %; Neutrophils # 4.68 10^3/uL (1.8-7.7); Nucleated Red Blood Cells % 0 %; Platelet Count 276 10^3/cmm (130-400); Red Blood Count 4.98 10^6/uL (4.1-5.3); Red Cell Distribution Width 12.9 % (12.1-15.1); White Blood Count 8.7 10^3/uL (4.0-10.0)
[2021-05-03] MEDS: ziprasidone hcl 40 mg Capsule PO (20:45)
[2021-05-03] MEDS: LORazepam 1 mg Tablet PO (20:45)
[2021-05-03 21:13] LABS: Alanine Aminotransferase 13 U/L (0-41); Alkaline Phosphatase 106 IU/L (40-130); Aspartate Amino Transferase 11 U/L (0-40); Blood Urea Nitrogen 15 mg/dL (6-20); Calcium 8.5 mg/dL (8.5-10.5); Carbon Dioxide 26 mmol/L (22-29); Chloride 104 mmol/L (98-107); Globulin 2.6 g/dL (1.3-4.6); Glomerular Filtration Rate 138.6 mL/min (90-130); Glucose 76 mg/dL (65-115); Lithium 0.1 mmol/L (0.6-1.2); Osmolality Calculated 286 mOsm/kg (285-295); Sodium 138 mmol/L (136-145); Total Bilirubin 0.2 mg/dL (0.15-1.2); Total Protein 6.6 g/dL (6.6-8.7)
[2021-05-03 21:14] LABS: Acetaminophen < 5.0 ug/mL (10-30); Alcohol Level < 10 mg/dL (0-10); Salicylate < 0.3 mg/dL (3-10)
[2021-05-03 21:52] VITALS: BP 129/87; PULSE 76; RESP 18; TEMP 36.7; O2SAT 100
[2021-05-03 22:00] VITALS: BP 129/87; PULSE 76; RESP 18; TEMP 36.7; O2SAT 100
[2021-05-03 22:15] LABS: Add Urine Microscopic? NO; Charge for UA Resulting for Rev
[2021-05-03 22:20] LABS: Urine Appearance Clear (CLEAR); Urine Color Yellow (Yellow); pH Urine 8 (5-7)
[2021-05-03 22:21] LABS: Bilirubin Urine Neg (Negative); Blood Urine Neg (Negative); Glucose Urine UA Norm (Normal); Ketones Urine Negative (Negative); Leukocyte Esterase Urine Negative (Negative); Nitrate Urine Negative (Negative); Protein Urine Neg (Negative); Specific Gravity, Urine 1.015 (1.005-1.030); Sulfosalicylic Acid Urine Negative (Negative); Urobilinogen Urine 1 mg/dL (Negative)
[2021-05-03] MEDS: trazodone 50 mg Tablet PO (22:30)
[2021-05-03 22:37] LABS: Amphetamines Screen Urine Positive (Negative); Barbiturates Screen Urine Negative (Negative); Benzodiazepines Screen Urine Negative (Negative); Cocaine Screen Urine Negative (Negative); Opiate Screen Urine Negative (Negative); PCP Screen Urine Negative (Negative); THC Screen Urine Positive (Negative)
[2021-05-04 06:00] VITALS: BP 121/62; PULSE 57; RESP 17; TEMP 37; O2SAT 97
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
--- NOTE | 2021-05-04 13:11 | NPU.GN ---
[facility] Unit Group Topic: Triggers, Coping Skills, Crisis Intervention Plan General Mood of Group: Mario Alberto did not attend group this morning and wanted to sleep.
[2021-05-04 14:00] VITALS: BP 116/80; PULSE 89; RESP 16; TEMP 36.7; O2SAT 99
[2021-05-04] MEDS: lithium carbonate 300 mg Capsule 600 MG PO (21:06)
[2021-05-04 21:22] VITALS: BP 133/83; PULSE 75; RESP 16; TEMP 36.8; O2SAT 99
[2021-05-04] MEDS: hyDROXYzine 25 mg Capsule 50 MG PO (22:32)
[2021-05-05] MEDS: acetaminophen 325 mg Tablet 650 MG PO ×3 (05:26→22:19)
--- NOTE | 2021-05-05 05:27 | PC.NURSE ---
PT COMPLAINING OF RIGHT SIDED TOOTH PAIN. TYLENOL 650MG PO GIVEN.
[2021-05-05 06:00] VITALS: BP 130/80; PULSE 75; RESP 20; TEMP 36.4; O2SAT 99
[2021-05-05] MEDS: lithium carbonate 300 mg Capsule 600 MG PO ×2 (09:39→18:45)
[2021-05-05 14:00] VITALS: BP 121/66; PULSE 77; RESP 20; TEMP 36.6; O2SAT 99
--- NOTE | 2021-05-05 16:35 | W.PM.NPUPNS ---
Subjective NPU Subjective: Interval history: Patient presents today mostly focused on discharge. He reports that his mother is saying he can come home which is very possible that some of the challenges that led to his theatric's was that he did not have a place to stay now he has a place to stay and he wants to go now. He reports that he has a job and things are going really well and he does not want to miss too many days. We discussed working a place called [employer] We discussed the importance of him maintaining his medication as prescribed and he reports that he will. He is feeling very impatient about discharge but we agreed that would occur possibly tomorrow but in the next 48 hours. Mental Status Exam MSE Comments: This is a slender white male looking younger than his stated age, in hospital scrubs with adequate grooming and?eye contact.? No abnormal movement except for mild psychomotor agitation.? Cooperative exam in no acute distress.? Speech was mostly normal rate and volume.? Mood described as better, affect appears congruent.? Thought process organized.? Thought content: Patient denied current suicidal or denied homicidal ideation, there were no delusions reported or noted, he denied any auditory or visual hallucinations.? Attention and concentration were mostly intact and memory appeared unreliable but none were formally tested.? He is alert and oriented x3.? Insight and judgment are limited, impulse control is limited. Vitals/I&O/Wt Last Vital Signs Temp 98 F 05/05/21 14:00 Pulse 77 05/05/21 14:00 Resp 20 H 05/05/21 14:00 BP 121/66 05/05/21 14:00 Pulse Ox 99 05/05/21 14:00 Weight last 48 hrs Weight 68.039 kg Data NPU : 05/03/21 20:10 05/03/21 20:10 A&P Assessment and plan (1) Suicidal ideation: Status: Acute (2) Chronic schizophrenia: Status: Acute (3) Acute psychosis: Status: Acute (4) Depression: Status: Acute (5) Methamphetamine abuse: Status: Acute (6) Cannabis abuse: Status: Acute (7) Personality disorder, unspecified: Status: Acute (8) Bipolar disorder: Status: Acute Qualifiers: Active/Remission status: currently active Current bipolar episode type: depressed Current episode severity: severe Psychotic features: with psychotic features Qualified Code(s): F31.5 - Bipolar disorder, current episode depressed, severe, with psychotic features Plan This is a 26-year-old white male with a history of bipolar disorder versus schizoaffective disorder, ADHD and addiction including methamphetamine and cannabis who [facility] made and he was reportedly off his medication for several days. 1.? Continue current medication. 2.? Continue every 15 minute checks for safety. 3.? Encourage individual, group and milieu therapies. 4.? Encourage sober living treatment after discharge at the highest level of care to which he is willing to commit. 5. We will consider discharge in the morning after consultation with mother. Involuntary Hold Information 96 Hour Hold: 96 Hour Involuntary Admission: Yes 96 Hour Hold Ending Date: 08/20/20 96 Hour Hold Ending Time: 22:55 Attestations NPU Medical Necessity Statement*: Inpatient hospitalization is medically necessary and the clinically appropriate intervention at this time.? We will monitor medications and maintain his indicated.? Likely length of stay 1-3 days. Coding Level of Care Code Acute [employer] for Farideh Moreno Diagnoses Suicidal ideation R45.851 Chronic schizophrenia F20.9 Acute psychosis F23 Depression F32.9 Methamphetamine abuse F15.10 Cannabis abuse F12.10 Personality disorder, unspecified F60.9 Bipolar disorder F31.5 Active/Remission status: currently active Current bipolar episode type: depressed Current episode severity: severe Psychotic features: with psychotic features
[2021-05-05] MEDS: hyDROXYzine 25 mg Capsule 50 MG PO (21:39)
[2021-05-05 22:00] VITALS: BP 145/90; PULSE 88; RESP 16; TEMP 37.1; O2SAT 98
--- NOTE | 2021-05-06 02:32 | PC.NURSE ---
2138 The patient came to the nurse's station and appeared very anxious. Vistaril was given for anxiety. This med was effective. At 2218 he came back to the nurse's station asking for something for pain related to his wisdom tooth holding his right jaw. Tylenol 650mg po given for tooth pain. This was effective as the patient is resting quietly.
[2021-05-06 06:00] VITALS: BP 122/81; PULSE 86; RESP 18; TEMP 36.7; O2SAT 99
[2021-05-06] MEDS: lithium carbonate 300 mg Capsule 600 MG PO ×2 (10:54→17:37)
[2021-05-06] MEDS: hyDROXYzine 25 mg Capsule 50 MG PO (13:47)
[2021-05-06 14:00] VITALS: BP 120/85; PULSE 86; RESP 18; TEMP 36.8; O2SAT 99
--- NOTE | 2021-05-06 18:15 | W.PM.NPUPNS ---
Subjective NPU Subjective: Interval history: Patient presents today reporting that he is feeling better and starting to be antsy about being here. We discussed the fact that discharge in the next 48 hours is reasonable as he is taking his medication and seeming to be more calm and more in control of himself. Is very frustrated however because after working diligently throughout the day he continued to get no body who seen they would be able to help him with transportation home. We discussed that tomorrow should be a better day as the weather slows down. He continued to be impatient. Mental Status Exam MSE Comments: This is a slender white male looking younger than his stated age, in hospital scrubs with adequate grooming and?eye contact.? No abnormal movement except for mild psychomotor agitation.? Cooperative exam in mild distress.? Speech was mostly normal rate and volume.? Mood described as better, affect appears congruent.? Thought process organized.? Thought content: Patient denied current suicidal or denied homicidal ideation, there were no delusions reported or noted, he denied any auditory or visual hallucinations.? Attention and concentration were mostly intact and memory appeared unreliable but none were formally tested.? He is alert and oriented x3.? Insight and judgment are limited, impulse control is limited. Vitals/I&O/Wt Last Vital Signs Temp 98.7 F 05/06/21 20:51 Pulse 78 05/06/21 20:51 Resp 17 05/06/21 20:51 BP 120/77 05/06/21 20:51 Pulse Ox 100 05/06/21 20:51 Data NPU : 05/03/21 20:10 05/03/21 20:10 A&P Assessment and plan (1) Suicidal ideation: Status: Acute (2) Acute psychosis: Status: Acute (3) Depression: Status: Acute (4) Methamphetamine abuse: Status: Acute (5) Cannabis abuse: Status: Acute (6) Personality disorder, unspecified: Status: Acute (7) Bipolar disorder: Status: Acute Qualifiers: Active/Remission status: currently active Current bipolar episode type: depressed Current episode severity: severe Psychotic features: with psychotic features Qualified Code(s): F31.5 - Bipolar disorder, current episode depressed, severe, with psychotic features Plan This is a 26-year-old white male with a history of bipolar disorder versus schizoaffective disorder, ADHD and addiction including methamphetamine and cannabis who presents recently discharged from the nursing home where suicidal threats were made and he was reportedly off his medication for several days. 1.? Continue current medication. 2.? Continue every 15 minute checks for safety. 3.? Encourage individual, group and milieu therapies. 4.? Encourage sober living treatment after discharge at the highest level of care to which he is willing to commit. 5.? Plan for discharge in the morning weather and transportation permitting. Involuntary Hold Information 96 Hour Hold: 96 Hour Involuntary Admission: Yes 96 Hour Hold Ending Date: 08/20/20 96 Hour Hold Ending Time: 22:55 Attestations NPU Medical Necessity Statement*: Inpatient hospitalization is medically necessary and the clinically appropriate intervention at this time.? We will monitor medications and maintain his indicated.? Likely length of stay 1-2 days. Coding Level of Care Code Acute [employer] for Farideh Moreno Diagnoses Suicidal ideation R45.851 Acute psychosis F23 Depression F32.9 Methamphetamine abuse F15.10 Cannabis abuse F12.10 Personality disorder, unspecified F60.9 Bipolar disorder F31.5 Active/Remission status: currently active Current bipolar episode type: depressed Current episode severity: severe Psychotic features: with psychotic features
[2021-05-06] MEDS: carBAMazepine 200 mg Tablet PO (19:53)
[2021-05-06 20:51] VITALS: BP 120/77; PULSE 78; RESP 17; TEMP 37.1; O2SAT 100
[2021-05-07 06:00] VITALS: BP 128/75; PULSE 67; RESP 16; TEMP 36.7; O2SAT 98
[2021-05-07] MEDS: lithium carbonate 300 mg Capsule 600 MG PO ×2 (11:04→18:06)
[2021-05-07] MEDS: carBAMazepine 200 mg Tablet PO ×2 (11:04→18:06)
[2021-05-07] MEDS: buPROPion XL (24 HR) 150 mg Tablet PO (11:05)
[2021-05-07 14:00] VITALS: BP 118/80; PULSE 90; RESP 18; TEMP 36.5; O2SAT 99
--- NOTE | 2021-05-07 15:29 | P.NPUDS_ITS ---
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 at discharge: cognitively intact , Behavioral status at discharge: cooperative , Coding Level of Care Code Acute Chg DC note Diagnoses Suicidal ideation R45.851 Acute psychosis F23 Depression F32.9 Methamphetamine abuse F15.10 Cannabis abuse F12.10 Personality disorder, unspecified F60.9 Bipolar disorder F31.5 Active/Remission status: currently active Current bipolar episode type: depressed Current episode severity: severe Psychotic features: with psychotic features
[2021-05-07 15:41] VITALS: BP 118/80; PULSE 90; RESP 18; TEMP 36.5; O2SAT 99
[2021-05-07] MEDS: hyDROXYzine 25 mg Capsule 50 MG PO (18:06)
[2021-05-07] MEDS: OLANZapine 5 mg ODT PO (18:07)
[2021-05-07] MEDS: haloperidol 5 mg Tablet PO (19:24)
[2021-05-07 21:33] VITALS: BP 145/67; PULSE 84; RESP 19; TEMP 36.6; O2SAT 95
== END 2021-05-07 21:39 | disposition home or self-care (01) | DRG 885 ==
LOC: ER 21:02 → NP 05-04 05:42
PROVIDERS: Physician Assistant; Admitting Provider Psychiatry & Neurology Psychiatry; Emergency Provider Emergency Medicine; Visit Provider Psychiatry & Neurology Psychiatry
DX: F25.0 Schizoaffective disorder, bipolar type (principal); R45.851 Suicidal ideations; Z91.128 Patient's intentional underdosing of medication regimen for other reason; F15.10 Other stimulant abuse, uncomplicated; F12.10 Cannabis abuse, uncomplicated; F10.10 Alcohol abuse, uncomplicated; F17.210 Nicotine dependence, cigarettes, uncomplicated; Z59.00 Homelessness unspecified
CPT/HCPCS: 80053; 80178; 80306; 80307; 81003; 85025; 97165; 99285

== ENCOUNTER 2022-02-18 22:40 | Inpatient (IN) | payer MEDICAID, SELFPAY ==
[2022-02-18 23:05] VITALS: BP 137/88; PULSE 109; RESP 18; TEMP 36.7; O2SAT 98; BMI 22.1
[2022-02-19] MEDS: OLANZapine 10 mg ODT 20 MG PO (00:07)
[2022-02-19 00:27] LABS: Basophils # 0.1 10^3/uL (0.0-0.1); Basophils % 0.7 %; Eosinophils # 0.4 10^3/uL (0.0-0.8); Eosinophils % 3.2 %; Hematocrit 45.4 % (42.0-52.0); Hemoglobin 15.2 g/dL (11.7-16.6); Lymphocytes # 2.8 10^3/uL (0.8-4.8); Lymphocytes % 24.9 %; Mean Corpuscular HGB Conc 33.5 g/dL (30.0-36.0); Mean Corpuscular Hemoglobin 29.1 pg (28.0-34.0); Mean Platelet Volume 8.6 fL (7.4-10.4); Monocytes # 0.9 10^3/uL (0.2-0.9); Monocytes % 8.2 %; Neutrophils % 62.5 %; Nucleated Red Blood Cells % 0 %; Platelet Count 392 10^3/cmm (130-400); Red Blood Count 5.22 10^6/uL (4.1-5.3); Red Cell Distribution Width 12.6 % (12.1-15.1)
[2022-02-19 00:35] LABS: Lithium 0.1 mmol/L (0.6-1.2)
[2022-02-19 00:45] LABS: Alanine Aminotransferase 19 U/L (0-41); Albumin Level 4.5 g/dL (3.5-5.2); Alkaline Phosphatase 114 U/L (40-130); Anion Gap 16.1 (5-19); Aspartate Amino Transferase 22 U/L (0-40); Blood Urea Nitrogen 20 mg/dL (6-20); Calcium 10.1 mg/dL (8.5-10.5); Carbon Dioxide 27 mmol/L (22-29); Chloride 101 mmol/L (98-107); Glomerular Filtration Rate 118.8 mL/min (90-130); Glucose 80 mg/dL (65-115); Osmolality Calculated 292 mOsm/kg (285-295); Potassium 4.1 mmol/L (3.5-5.1); Sodium 140 mmol/L (136-145); Total Bilirubin 0.4 mg/dL (0.15-1.2); Total Protein 7.5 g/dL (6.6-8.7)
[2022-02-19 00:49] LABS: Acetaminophen < 5.0 ug/mL (10-30); Alcohol Level < 10 mg/dL (0-10); Salicylate < 0.3 mg/dL (3-10)
--- NOTE | 2022-02-19 01:14 | ED.C_ITS ---
HPI - Psych General: Chief Complaint: Psychiatric Symptoms Stated Complaint: 96 HOLD Time Seen by Provider: 02/18/22 23:06 Source: patient and police History of Present Illness: 26-year-old male with a long history of psychiatric illness. He presents via law enforcement transport after they were called to the home. He made statements of wanting to harm himself/kill himself. He also appeared to be acting quite bizarre and making strange statements. He admits to me that he has had thoughts of harming himself. He is distracted on exam, and seems to respond to other stimuli in the room. MD complaint: suicidal ideation and altered mental status Onset (ago): hour(s) Duration: constant History of same: Yes Relieving factors: none Exacerbating factors: drug use Context: recent drug abuse and not taking psychiatric medications Associated psychiatric symptoms: suicidal ideation, racing thoughts, auditory hallucinations and visual hallucinations If self harm: admits thoughts of self harm Review of Systems Const: Denies: fever(s) or chills ENMT: Denies: throat pain Card: Denies: chest pain Resp: Denies: dyspnea GI: Denies: abdominal pain or vomiting : Denies: difficulty urinating Neuro: Denies: headache(s) PFSH ED PFSH: Medical History Alcohol abuse Marijuana abuse Polysubstance abuse Psychiatric care Surgical History H/O peritonsillar abscess drainage No pertinent past surgical history Family History Denies family history of Cancer Social History Smoking and tobacco status: current every day smoker cigarettes Alcohol intake: current Alcohol intake frequency: few times a week Physical Exam Const: GENERAL APPEARANCE: cooperative NUTRITIONAL APPEARANCE: thin ORIENTATION/CONSCIOUSNESS: Yes awake, Yes oriented to person and Yes oriented to place; not oriented to time HENMT: COMMON NORMALS: normocephalic, atraumatic and Normal external nose present HEAD & SCALP: normocephalic and atraumatic FACE & SINUS: normal facial exam NOSE: Normal external nose present Eye: COMMON NORMALS: Equal, round and reactive pupils present and EOMs intact bilaterally PUPIL: Yes Equal, round and reactive pupils present Neck/C-Spine: COMMON NORMALS: full ROM GENERAL: Yes trachea midline Chest: CHEST: Yes Symmetrical chest wall rise Resp: COMMON NORMALS: normal respiratory effort, No use of accessory muscles and clear to auscultation bilaterally AUSCULTATION: clear to auscultation bilaterally Cardio: COMMON NORMALS: regular rate and regular rhythm RATE: regular rate RHYTHM: regular rhythm GI: COMMON NORMALS: Normal to inspection, nondistended, normoactive bowel sounds present and Soft to palpation PALPATION: Yes Soft to palpation Extremity: COMMON NORMALS: no pedal edema Neuro: SENSORIUM/ORIENTATION: Yes oriented to person, Yes oriented to place and No oriented to time GAIT: Yes Normal gait present SENSORY EXAM: Yes extremities (Intact) MOTOR EXAM: Normal motor muscle tone present throughout Psych: COMMON NORMALS: cooperative APPEARANCE: Yes unkempt ATTITUDE: Yes Guarded attititude/behavior present ACTIVITY/MOTOR BEHAVIOR: Yes psychomotor agitation and Yes fidgeting SPEECH: Yes excessive THOUGHT PROCESS: Circumstantial thought process present THOUGHT CONTENT: Yes Suicidality present and Yes Hallucination(s) present Course Vital Signs: Vital signs: Vital Signs Temperature 98.1 F 02/18/22 23:05 Pulse Rate 109 H 02/18/22 23:05 Respiratory Rate 18 02/18/22 23:05 Blood Pressure 137/88 02/18/22 23:05 Pulse Oximetry 98 02/18/22 23:05 Oxygen Delivery Me thod 02/18/22 23:05 MDM - Psych Medical Decision Making Patient asked for something for anxiety. He was given oral Zydis. He has been calm and cooperative here. His laboratory is not remarkable. He will be admitted in NPU. He is medically stable. Lab Data 02/19/22 00:08 02/19/22 00:08 Laboratory Results WBC 11.0 10^3/uL (4.0-10.0) H 02/19/22 00:08 RBC 5.22 10^6/uL (4.1-5.3) 02/19/22 00:08 Hgb 15.2 g/dL (11.7-16.6) 02/19/22 00:08 Hct 45.4 % (42.0-52.0) 02/19/22 00:08 MCV 87.0 fl (80-94) 02/19/22 00:08 MCH 29.1 pg (28.0-34.0) 02/19/22 00:08 MCHC 33.5 g/dL (30.0-36.0) 02/19/22 00:08 RDW 12.6 % (12.1-15.1) 02/19/22 00:08 Plt Count 392 10^3/cmm (130-400) 02/19/22 00:08 MPV 8.6 fL (7.4-10.4) 02/19/22 00:08 Neut % (Auto) 62.5 % 02/19/22 00:08 Lymph % (Auto) 24.9 % 02/19/22 00:08 Christian % (Auto) 8.2 % 02/19/22 00:08 Eos % (Auto) 3.2 % 02/19/22 00:08 Baso % (Auto) 0.7 % 02/19/22 00:08 Neut # (Auto) 6.90 10^3/uL (1.8-7.7) 02/19/22 00:08 Lymph # (Auto) 2.8 10^3/uL (0.8-4.8) 02/19/22 00:08 Christian # (Auto) 0.9 10^3/uL (0.2-0.9) 02/19/22 00:08 Eos # (Auto) 0.4 10^3/uL (0.0-0.8) 02/19/22 00:08 Baso # (Auto) 0.1 10^3/uL (0.0-0.1) 02/19/22 00:08 Nucleated RBC % (auto) 0 % 02/19/22 00:08 Nucleated RBCs # 0.0 /100WBC 02/19/22 00:08 Sodium 140 mmol/L (136-145) 02/19/22 00:08 Potassium 4.1 mmol/L (3.5-5.1) 02/19/22 00:08 Chloride 101 mmol/L (98-107) 02/19/22 00:08 Carbon Dioxide 27 mmol/L (22-29) 02/19/22 00:08 Anion Gap 16.1 (5-19) 02/19/22 00:08 BUN 20 mg/dL (6-20) 02/19/22 00:08 Creatinine 0.8 mg/dL (0.7-1.2) 02/19/22 00:08 GFR Calculation 118.8 mL/min (90-130) 02/19/22 00:08 Glucose 80 mg/dL (65-115) 02/19/22 00:08 Calculated Osmolality 292 mOsm/kg (285-295) 02/19/22 00:08 Calcium 10.1 mg/dL (8.5-10.5) 02/19/22 00:08 Total Bilirubin 0.4 mg/dL (0.15-1.2) 02/19/22 00:08 AST 22 U/L (0-40) 02/19/22 00:08 ALT 19 U/L (0-41) 02/19/22 00:08 Alkaline Phosphatase 114 U/L (40-130) 02/19/22 00:08 Total Protein 7.5 g/dL (6.6-8.7) 02/19/22 00:08 Albumin 4.5 g/dL (3.5-5.2) 02/19/22 00:08 Globulin 3.0 g/dL (1.3-4.6) 02/19/22 00:08 TSH 2.60 uIU/mL (0.27-4.20) 02/19/22 00:08 Salicylates < 0.3 mg/dL (3-10) L 02/19/22 00:08 Acetaminophen < 5.0 ug/mL (10-30) L 02/19/22 00:08 [place] 0.1 mmol/L (0.6-1.2) L 02/19/22 00:08 Ethyl Alcohol < 10 mg/dL (0-10) 02/19/22 00:08 Discharge Plan Discharge Patient Disposition: Admitted As Inpatient Clinical Impression: Acute psychosis, Suicidal ideation Condition: Stable Prescriptions: No Action lithium carbonate 600 mg capsule 600 mg PO BID 30 Days Qty: 60 1RF Coding Level of Care Code ED Pourer Buggy Ladle for Chg Tiffanie
--- NOTE | 2022-02-19 02:00 | PC.NURSE ---
Notice of Rights of Involuntary Patient has been read aloud to patient & a copy of the same given to the patient. property disposal officer Garrett was present at bedside.
[2022-02-19 04:00] VITALS: BP 116/55; PULSE 65; RESP 18; O2SAT 99
--- NOTE | 2022-02-19 04:40 | PC.NURSE ---
pt admitted to NPU unit @ [id number]. very irritable and uncooperative. refused to change out of paper scrubs into unit scrubs. pt punching himself in the head and neck yelling at staff that he just wants to sleep. pt starting banging his head on the wall when asked again to change out. staff gave pt space but informed him he could not head bang. pt did comply with this but still refused to change out. pt wanded for safety. no assessment questions could be answered. will continue to monitor.
[2022-02-19 06:00] VITALS: RESP 15
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
[2022-02-19 14:00] VITALS: RESP 18
[2022-02-20 06:00] VITALS: BP 116/55; PULSE 65; RESP 18; TEMP 36.7; O2SAT 99; BMI 22.1
[2022-02-20 06:39] VITALS: BP 103/67; PULSE 53; RESP 16; TEMP 36.4; O2SAT 98
[2022-02-20 14:00] VITALS: BP 130/66; PULSE 84; RESP 18; O2SAT 96
--- NOTE | 2022-02-20 16:31 | P.NPUPN_ITS ---
Subjective NPU Subjective: Patient is a 26-year-old male with a history of methamphetamine abuse along with a history of reported schizophrenia admitted with suicidal ideation. Patient had reported that he was ready to go home although he had reported that he had had the presence of hallucinations since using methamphe tamine. He continued to minimize the significance of his methamphetamine use. He reports that he wishes to receive help. He had reported that he had been feeling less depressed. He had continued to isolate himself on the milieu and stated that he had difficulties trusting other people in general. . Mental Status Exam MSE Comments: This is a slender white male looking younger than his stated age, in hospital scrubs with adequate grooming and?eye contact.? No abnormal movement except for mild psychomotor agitation.? Cooperative exam in mild distress.? Speech was mostly normal rate and volume.? Mood described as okay. ? Thought process organized.? Thought content: Patient denied current suicidal or denied homicidal ideation, there were no delusions reported or noted, he denied any auditory or visual hallucinations.? Attention and concentration were mostly intact and memory appeared unreliable but none were formally tested.? He is alert and oriented x3.? Insight and judgment are limited, impulse control is limited. Vitals/I&O/Wt Last Vital Signs Temp 97.5 F L 02/20/22 06:39 Pulse 84 02/20/22 14:00 Resp 18 02/20/22 14:00 BP 130/66 02/20/22 14:00 Pulse Ox 96 02/20/22 14:00 O2 Del Method 02/18/22 23:05 Weight last 48 hrs Weight 68.039 kg Weight 68.039 kg Data NPU 02/19/22 00:08 02/19/22 00:08 A&P Assessment and plan (1) Suicidal ideation: (2) Acute psychosis: (3) Depression: (4) Methamphetamine abuse: (5) Cannabis abuse: (6) Personality disorder, unspecified: (7) Bipolar disorder: Qualifiers: Active/Remission status: currently active Current bipolar episode type: depressed Current episode severity: severe Psychotic features: with psychotic features Qualified Code(s): F31.5 - Bipolar disorder, current episode depressed, severe, with psychotic features Plan This is a 26-year-old white male with a history of bipolar disorder versus schizoaffective disorder, ADHD and addiction including methamphetamine and cannabis who presents recently [facility] from the [facility] where [facility] were made and he was reportedly off his medication for several days. 1.? Start Abilify 5mg in am. 2.? Continue every 15 minute checks for safety. 3.? Encourage individual, group and milieu therapies. 4.? Encourage sober living treatment after discharge at the highest level of care to which he is willing to commit. Involuntary Hold Information 96 Hour Hold: 96 Hour Involuntary Admission: Yes 96 Hour Hold Ending Date: 08/20/20 96 Hour Hold Ending Time: 22:55 Attestations NPU Medical Necessity Statement*: Inpatient hospitalization is medically necessary and the clinically appropriate intervention at this time.? We will monitor medications and maintain his indicated.? Likely length of stay 1-2 days. 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
[2022-02-20 20:49] VITALS: BP 119/66; PULSE 75; RESP 18; TEMP 36.8; O2SAT 97
[2022-02-21 05:40] VITALS: BP 119/71; PULSE 64; RESP 18; TEMP 36.8; O2SAT 97
[2022-02-21] MEDS: ARIPiprazole 10 mg Tablet 5 MG PO (08:11)
--- NOTE | 2022-02-21 08:21 | PC.NURSE ---
shift assessment stated Well I'm still suicidal while smiling at staff...no plan, did contract for safety
[2022-02-21] MEDS: nicotine 2 mg Gum BUCCAL (12:44)
[2022-02-21 14:00] VITALS: BP 120/74; PULSE 102; RESP 16; TEMP 36.6; O2SAT 99
--- NOTE | 2022-02-21 16:05 | W.PM.NPUPNS ---
Subjective NPU Subjective: Patient is a 26-year-old male with a history of methamphetamine abuse along with a history of reported schizophrenia admitted with suicidal ideation. Patient continued to appear confused on the milieu. He stated that he was continuing to feel suicidal. He had acknowledged a history of methamphetamine abuse but attempted to minimize it. Patient reported no side effects from his current medication. The patient had continue to isolate himself and stated that he was feeling upset at numerous questions that were asked of him. He had required some prompting for completion of activities of daily living. He continued to report having difficulties with trusting others. Mental Status Exam MSE Comments: This is a slender white male looking younger than his stated age, in hospital scrubs with adequate grooming and?eye contact.? No abnormal involuntary motor movement except for mild psychomotor agitation.? He was uncooperative exam in mild distress.? Speech was mostly normal rate and volume.? Mood described as terrible. Affect was mood congruent and irritable. ? Thought process was organized.? Thought content: Patient denied current suicidal or denied homicidal ideation, there were no delusions reported or noted, he denied any auditory or visual hallucinations.?There was some evidence of paranoia. Attention and concentration were mostly intact and memory appeared unreliable but none were formally tested.? He is alert and oriented x3.? Insight and judgment are limited, impulse control is limited. Vitals/I&O/Wt Last Vital Signs Temp 98 F 02/21/22 14:00 Pulse 102 H 02/21/22 14:00 Resp 16 02/21/22 14:00 BP 120/74 02/21/22 14:00 Pulse Ox 99 02/21/22 14:00 O2 Del Method 02/21/22 14:00 Weight last 48 hrs Weight 68.039 kg Data NPU 02/19/22 00:08 02/19/22 00:08 A&P Assessment and plan (1) Suicidal ideation: (2) Acute psychosis: (3) Depression: (4) Methamphetamine abuse: (5) Cannabis abuse: (6) Personality disorder, unspecified: (7) Bipolar disorder: Qualifiers: Active/Remission status: currently active Current bipolar episode type: depressed Current episode severity: severe Psychotic features: with psychotic features Qualified Code(s): F31.5 - Bipolar disorder, current episode depressed, severe, with psychotic features Plan This is a 26-year-old white male with a history of bipolar disorder versus schizoaffective disorder, ADHD and addiction including methamphetamine and cannabis who presents recently discharged from the [place] [facility] where suicidal threats were made and he was reportedly off his medication for several days. 1.? Increase abilify to 10mg in am. 2.? Continue every 15 minute checks for safety. 3.? Encourage individual, group and milieu therapies. 4.? Encourage sober living treatment after discharge at the highest level of care to which he is willing to commit. Involuntary Hold Information 96 Hour Hold: 96 Hour Involuntary Admission: Yes 96 Hour Hold Ending Date: 08/20/20 96 Hour Hold Ending Time: 22:55 Attestations NPU Medical Necessity Statement*: Inpatient hospitalization is medically necessary and the clinically appropriate intervention at this time.? We will monitor medications and maintain his indicated.? Likely length of stay 1-2 days. 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
[2022-02-21 20:03] VITALS: BP 128/58; PULSE 89; RESP 19; TEMP 36.4; O2SAT 98
[2022-02-22 06:00] VITALS: BP 121/63; PULSE 62; RESP 16; O2SAT 99
[2022-02-22] MEDS: ARIPiprazole 10 mg Tablet PO (09:13)
[2022-02-22] MEDS: nicotine 2 mg Gum BUCCAL (09:13)
[2022-02-22 14:00] VITALS: BP 136/78; PULSE 85; RESP 16; TEMP 37; O2SAT 97
--- NOTE | 2022-02-22 16:17 | W.PM.NPUPNS ---
Subjective NPU Subjective: Patient is a 26-year-old male with a history of methamphetamine abuse along with a history of reported schizophrenia admitted with suicidal ideation. The patient continued to report having some suicidal thoughts and reports that he had problems with hearing things and continue to report difficulties with trusting others. He had isolated himself on the milieu. He reported no side effects from the Abilify at this time. He had reported a history of noncompliance with medications in the past. He reported that he did not need help with his problems with misuse of methamphetamine. Mental Status Exam MSE Comments: This is a slender white male looking younger than his stated age, in hospital scrubs with adequate grooming and?eye contact.? No abnormal involuntary motor movement except for mild psychomotor agitation.? He was mostly uncooperative exam in mild distress.? Speech was mostly normal rate and volume.?There was limited production in speech. Mood described as terrible. Affect was mood congruent and irritable. ? Thought process was organized.? Thought content: Patient denied current suicidal or denied homicidal ideation, there were no delusions reported or noted, he denied any auditory or visual hallucinations.?There was some evidence of paranoia. Attention and concentration were mostly intact and memory appeared unreliable but none were formally tested.? He is alert and oriented x3.? Insight and judgment are limited, impulse control is limited. Vitals/I&O/Wt Last Vital Signs Temp 97.6 F 02/21/22 20:03 Pulse 62 02/22/22 06:00 Resp 16 02/22/22 06:00 BP 121/63 02/22/22 06:00 Pulse Ox 99 02/22/22 06:00 O2 Del Method 02/21/22 14:00 Data NPU 02/19/22 00:08 02/19/22 00:08 A&P Assessment and plan (1) Suicidal ideation: (2) Acute psychosis: (3) Depression: (4) Methamphetamine abuse: (5) Cannabis abuse: (6) Personality disorder, unspecified: (7) Bipolar disorder: Qualifiers: Active/Remission status: currently active Current bipolar episode type: depressed Current episode severity: severe Psychotic features: with psychotic features Qualified Code(s): F31.5 - Bipolar disorder, current episode depressed, severe, with psychotic features Plan This is a 26-year-old white male with a history of bipolar disorder versus schizoaffective disorder, ADHD and addiction including methamphetamine and cannabis with suicidal ideation. 1.? Continue Abilify 10mg daily. 2.? Continue every 15 minute checks for safety. 3.? Encourage individual, group and milieu therapies. 4.? Encourage sober living treatment after discharge at the highest level of care to which he is willing to commit. Involuntary Hold Information 96 Hour Hold: 96 Hour Involuntary Admission: Yes 96 Hour Hold Ending Date: 08/20/20 96 Hour Hold Ending Time: 22:55 Attestations NPU Medical Necessity Statement*: Inpatient hospitalization is medically necessary and the clinically appropriate intervention at this time.? We will monitor medications and maintain his indicated.? Likely length of stay 3-4 days. 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
[2022-02-22] MEDS: benztropine 1 mg Tablet PO (16:23)
[2022-02-22] MEDS: diphenhydrAMINE 50 mg/mL SDV 1mL IM (16:33)
--- NOTE | 2022-02-22 16:33 | PC.NURSE ---
PT CAME TO NURSES STATION C/O TONGUE SWELLING, PRN COGENTIN GIVEN PO, TAKEN WITHOUT DIFF. WHEN RETURNING WITH MED, PT BECAME PANICKED, AND STATES I CANT HARDLY BREATHE IM BENADRYL GIVEN, THIS NURSE AND DAVE THOMAS AND ZULLY THOMAS STAYED WITH PT SITTING IN LEE ON BENCH. CALMING BREATHING TECH USED WITH PT RETURN DEMONSTRATING. PT TONGUE SWELLING REDUCED, NECK TIGHTNESS REDUCED. PT STATAED HE WANTED TO GO LAY DOWN. NO BREATHING DIFF, NO OTHER S/S OF EPS. PT IN ROOM RESTING WITH EYES CLOSED, RESP EVEN AND UNLABORED. STAFF CHECKING Q 15 MIN, PT INSTRUCTED TO ALERT STAFF IF SYMPTOMS RETURN, PT VERB UNDERSTANDING
[2022-02-22 20:50] VITALS: BP 137/69; PULSE 78; RESP 18; O2SAT 98
[2022-02-23 06:00] VITALS: RESP 15
[2022-02-23] MEDS: diphenhydrAMINE 50 mg Capsule PO (09:39)
[2022-02-23] MEDS: nicotine 4 mg lozenge MUCOUS MEM (09:39)
[2022-02-23] MEDS: benztropine 1 mg Tablet PO (09:39)
[2022-02-23] MEDS: ARIPiprazole 10 mg Tablet PO (09:39)
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
[2022-02-23 14:51] VITALS: BP 137/69; PULSE 78; RESP 15; TEMP 37; O2SAT 98
== END 2022-02-23 15:32 | disposition home or self-care (01) | DRG 885 ==
LOC: ER 02-19 01:20 → NP 02-19 02:29
PROVIDERS: Admitting Provider Psychiatry & Neurology Psychiatry; Emergency Provider Emergency Medicine; Visit Provider Psychiatry & Neurology Psychiatry
DX: F25.0 Schizoaffective disorder, bipolar type (principal); R45.851 Suicidal ideations; F17.210 Nicotine dependence, cigarettes, uncomplicated; F10.10 Alcohol abuse, uncomplicated; F15.10 Other stimulant abuse, uncomplicated; F60.9 Personality disorder, unspecified; F90.9 Attention-deficit hyperactivity disorder, unspecified type; F12.10 Cannabis abuse, uncomplicated
CPT/HCPCS: 80053; 80178; 80307; 84443; 85025; 96372; 97165; 99285; J1200; Q0163

== ENCOUNTER 2022-03-11 21:15 | Emergency (ER) | payer MEDICAID, SELFPAY ==
[2022-03-11 21:18] VITALS: BP 133/65; PULSE 99; RESP 16; TEMP 36.4; O2SAT 98
[2022-03-11 21:43] LABS: Add Urine Microscopic? NO; Charge for UA Resulting for Rev
[2022-03-11] MEDS: LORazepam 2 mg/mL INJ 1 mL IM ×2 (21:49→22:14)
[2022-03-11] MEDS: ziprasidone 20 mg/mL SDV IM (21:50)
[2022-03-11 21:53] LABS: Bilirubin Urine Neg (Negative); Blood Urine Neg (Negative); Glucose Urine UA Norm (Normal); Ketones Urine Negative (Negative); Leukocyte Esterase Urine Negative (Negative); Nitrate Urine Negative (Negative); Protein Urine Neg (Negative); Specific Gravity, Urine 1.025 (1.005-1.030); Urine Appearance Clear (CLEAR); Urine Color Yellow (Yellow); Urobilinogen Urine Neg (Negative); pH Urine 5 (5-7)
[2022-03-11 21:55] LABS: Amphetamines Screen Urine Positive (Negative); Barbiturates Screen Urine Negative (Negative); Benzodiazepines Screen Urine Positive (Negative); Cocaine Screen Urine Negative (Negative); Opiate Screen Urine Negative (Negative); PCP Screen Urine Negative (Negative); THC Screen Urine Positive (Negative)
--- NOTE | 2022-03-11 22:09 | W.ED.PSYCHS ---
Documented by User: Jaydon Patiño MD 03/11/22 22:50 HPI - Psych General: Chief Complaint: Psychiatric Symptoms Stated Complaint: MHE Time Seen by Provider: 03/11/22 21:22 Source: patient and EMS Mode of arrival: EMS Limitations: other (Acute psychosis; severe anxiety) History of Present Illness: See nursing assessment. Patient presents by EMS with psychotic break . Patient states he is having a schizophrenic episode. He states he wants his medication refilled and be discharged. Patient has flight of ideas and told nurse earlier that he was suicidal earlier this morning. Patient states he has had visual hallucinations. Patient is very agitated and cannot sit still. Associated symptoms: Reports auditory hallucinations and depression Review of Systems Const: Denies: fever(s) or chills Eyes: Denies: change in vision ENMT: Denies: throat pain Card: Denies: chest pain or palpitations Resp: Denies: dyspnea or wheezing GI: Denies: abdominal pain, nausea or vomiting : Denies: flank pain Musc: Denies: neck pain or back pain Skin/Breast: Denies: rash or pruritus Neuro: Denies: headache(s) or numbness in extremities Psych: Reports: anxiety, depression, irritability, paranoia, auditory hallucinations and other (Patient states he feels like people are following him.) Gianfranco/Lymph: Denies: enlarged lymph nodes [facility] ED PFSH: Medical History Alcohol abuse Marijuana abuse Polysubstance abuse Psychiatric care Surgical History H/O peritonsillar abscess drainage No pertinent past surgical history Family History Denies family history of Cancer Social History Smoking and tobacco status: current every day smoker cigarettes Alcohol intake: current Alcohol intake frequency: few times a week Physical Exam Const: COMMON NORMALS: patient oriented x3 and well nourished HENMT: COMMON NORMALS: normocephalic and atraumatic HEAD & SCALP: normocephalic and atraumatic FACE & SINUS: normal facial exam Eye: COMMON NORMALS: EOMs intact bilaterally Neck/C-Spine: COMMON NORMALS: full ROM, no lymphadenopathy, supple and no meningeal signs GENERAL: Yes normal visual inspection Lymph: LYMPHATIC: no lymphadenopathy noted Chest: COMMONS NORMALS: normal inspection of the chest and normal palpation of entire chest wall CHEST: No Ecchymosis present and No rash Resp: COMMON NORMALS: normal respiratory effort, No retractions and clear to auscultation bilaterally EFFORT & INSPECTION: No respiratory distress AUSCULTATION: clear to auscultation bilaterally Cardio: COMMON NORMALS: regular rate, regular rhythm and Peripheral pulses 2+ throughout JUGULAR VENOUS DISTENTION: no JVD RATE: regular rate RHYTHM: regular rhythm PERIPHERAL PULSES: Peripheral pulses 2+ throughout GI: COMMON NORMALS: Normal to inspection, nondistended, normoactive bowel sounds present and non-tender Back/Pelvis: OTHER: Back is nontender Extremity: COMMON NORMALS: normal to inspection, full ROM and capillary refill normal Neuro: COMMON NORMALS: patient oriented x3, CN's II-XII intact bilaterally, no focal motor deficits and no sensory deficits noted MENINGEAL SIGNS: Yes no meningeal signs Psych: APPEARANCE: Yes unkempt ATTITUDE: Yes paranoid, Yes bizarre, Yes uncooperative, Yes agitated and Yes aggressive ACTIVITY/MOTOR BEHAVIOR: Yes fidgeting and Yes disorganized behavior SPEECH: Yes excessive MOOD & AFFECT: Yes anxious THOUGHT PROCESS: disorganized, Flight of ideas present and Tangential thought process present OTHER: Patient is acutely psychotic. Patient also with suicidal ideations earlier today. Skin: COMMON NORMALS: no rashes or lesions noted and no wounds GENERAL SKIN EXAM: no rashes or lesions noted Course Vital Signs: Vital signs: Vital Signs Temperature 97.8 F 03/11/22 22:50 Pulse Rate 68 03/12/22 11:15 Respiratory Rate 16 03/12/22 05:42 Blood Pressure 111/51 03/12/22 11:15 Pulse Oximetry 95 03/12/22 11:15 Oxygen Delivery Wy thod 03/12/22 11:15 MDM - Psych Medical Decision Making Acute psychosis. Patient will require 96-hour involuntary hold. Affidavit filled out by me. 2300: Care transferred to Dr. Tirado at shift change. Lab Data 03/11/22 22:45 03/11/22 22:45 Laboratory Results WBC 7.9 10^3/uL (4.0-10.0) 03/11/22 22:45 RBC 4.85 10^6/uL (4.1-5.3) 03/11/22 22:45 Hgb 14.2 g/dL (11.7-16.6) 03/11/22 22:45 Hct 41.5 % (42.0-52.0) L 03/11/22 22:45 MCV 85.6 fl (80-94) 03/11/22 22:45 MCH 29.3 pg (28.0-34.0) 03/11/22 22:45 MCHC 34.2 g/dL (30.0-36.0) 03/11/22 22:45 RDW 12.4 % (12.1-15.1) 03/11/22 22:45 Plt Count 295 10^3/cmm (130-400) 03/11/22 22:45 MPV 8.7 fL (7.4-10.4) 03/11/22 22:45 Neut % (Auto) 54.1 % 03/11/22 22:45 Lymph % (Auto) 31.1 % 03/11/22 22:45 [place] % (Auto) 9.0 % 03/11/22 22:45 Eos % (Auto) 5.0 % 03/11/22 22:45 Baso % (Auto) 0.5 % 03/11/22 22:45 Neut # (Auto) 4.26 10^3/uL (1.8-7.7) 03/11/22 22:45 Lymph # (Auto) 2.5 10^3/uL (0.8-4.8) 03/11/22 22:45 [place] # (Auto) 0.7 10^3/uL (0.2-0.9) 03/11/22 22:45 Eos # (Auto) 0.4 10^3/uL (0.0-0.8) 03/11/22 22:45 Baso # (Auto) 0.0 10^3/uL (0.0-0.1) 03/11/22 22:45 Nucleated RBC % (auto) 0 % 03/11/22 22:45 Nucleated RBCs # 0.0 /100WBC 03/11/22 22:45 Sodium 139 mmol/L (136-145) 03/11/22 22:45 Potassium 3.5 mmol/L (3.5-5.1) 03/11/22 22:45 Chloride 102 mmol/L (98-107) 03/11/22 22:45 Carbon Dioxide 27 mmol/L (22-29) 03/11/22 22:45 Anion Gap 13.5 (5-19) 03/11/22 22:45 BUN 13 mg/dL (6-20) 03/11/22 22:45 Creatinine 0.8 mg/dL (0.7-1.2) 03/11/22 22:45 GFR Calculation 118.8 mL/min (90-130) 03/11/22 22:45 Glucose 132 mg/dL (65-115) H 03/11/22 22:45 Calculated Osmolality 290 mOsm/kg (285-295) 03/11/22 22:45 Calcium 9.0 mg/dL (8.5-10.5) 03/11/22 22:45 Total Bilirubin 0.4 mg/dL (0.15-1.2) 03/11/22 22:45 AST 17 U/L (0-40) 03/11/22 22:45 ALT 17 U/L (0-41) 03/11/22 22:45 Alkaline Phosphatase 98 U/L (40-130) 03/11/22 22:45 Total Protein 6.9 g/dL (6.6-8.7) 03/11/22 22:45 Albumin 4.2 g/dL (3.5-5.2) 03/11/22 22:45 Globulin 2.7 g/dL (1.3-4.6) 03/11/22 22:45 TSH 1.02 uIU/mL (0.27-4.20) 03/11/22 22:45 Urine Color Yellow (Yellow) 03/11/22 20:46 Urine Appearance Clear (CLEAR) 03/11/22 20:46 Urine pH 5 (5-7) 03/11/22 20:46 Ur Specific [place] 1.025 (1.005-1.030) 03/11/22 20:46 Urine Protein Neg (Negative) 03/11/22 20:46 Urine Glucose (UA) Norm (Normal) 03/11/22 20:46 Urine Ketones Negative (Negative) 03/11/22 20:46 Urine Blood Neg (Negative) 03/11/22 20:46 Urine Nitrate Negative (Negative) 03/11/22 20:46 Urine Bilirubin Neg (Negative) 03/11/22 20:46 Urine Urobilinogen Neg mg/dL (Negative) 03/11/22 20:46 Ur Leukocyte Esterase Negative (Negative) 03/11/22 20:46 Salicylates < 0.3 mg/dL (3-10) L 03/11/22 22:45 Urine Opiates Screen Negative ng/mL (Negative) 03/11/22 20:46 Acetaminophen < 5.0 ug/mL (10-30) L 03/11/22 22:45 Ur Barbiturates Screen Negative ng/mL (Negative) 03/11/22 20:46 Ur Phencyclidine Scrn Negative ng/mL (Negative) 03/11/22 20:46 Ur Amphetamines Screen Positive ng/mL (Negative) H 03/11/22 20:46 U Benzodiazepines Scrn Positive ng/mL (Negative) H 03/11/22 20:46 Urine Cocaine Screen Negative ng/mL (Negative) 03/11/22 20:46 U Marijuana (THC) Screen Positive ng/mL (Negative) H 03/11/22 20:46 Ethyl Alcohol < 10 mg/dL (0-10) 03/11/22 22:45 Influenza Type A Ag negative (Negative) 03/11/22 22:45 Influenza Type B Ag negative (Negative) 03/11/22 22:45 SARS-CoV-2 Ag (Rapid) negative (Negative) 03/11/22 22:45 Discharge Plan Discharge Patient Disposition: Home Clinical Impression: Acute psychosis, Chronic schizophrenia, Methamphetamine abuse Condition: Stable Prescriptions: Continued benztropine 1 mg Tablet 1 mg PO BID 30 Days Qty: 60 1RF Changed aripiprazole 10 mg Tablet 10 mg PO DAILY 30 Days Qty: 30 1RF Discharge Orders: Discharge ED (Routine); Ordered 03/12/22 Ordered By: Dewayne Stone Discharge Diet: Advance as tolerated Discharge Activity: Increase activity as tolerated Patient Instructions: Opioid Safety, Pain Management Activity Restrictions/Additional Instructions: Please follow-up as needed with your primary care doctor in the next 1 week, please take your medications as prescribed. Please return the interim if any of your symptoms persist or worse. Coding Level of Care Code ED Termite Renewal Inspector for Chg Fwd Exam Comprehensive Medical Decision Making Moderate Complexity Documented by User: Dewayne Stone 03/12/22 11:57 HPI - Psych General: Chief Complaint: Psychiatric Symptoms Stated Complaint: MHE Time Seen by Provider: 03/11/22 21:22 PFSH ED PFSH: Medical History Alcohol abuse Marijuana abuse Polysubstance abuse Psychiatric care Surgical History H/O peritonsillar abscess drainage No pertinent past surgical history Family History Denies family history of Cancer Social History Smoking and tobacco status: current every day smoker cigarettes Alcohol intake: current Alcohol intake frequency: few times a week Course Vital Signs: Vital signs: Vital Signs Temperature 97.8 F 03/11/22 22:50 Pulse Rate 68 03/12/22 11:15 Respiratory Rate 16 03/12/22 05:42 Blood Pressure 111/51 03/12/22 11:15 Pulse Oximetry 95 03/12/22 11:15 Oxygen Delivery Wy thod 03/12/22 11:15 MDM - Psych Medical Decision Making Acute psychosis. Patient will require 96-hour involuntary hold. Affidavit filled out by me. 2300: Care transferred to Dr. Tirado at shift change. No additional needs last night this patient was signed out to myself Dr. Stone by Dr. Tirado at 0600 on 03/12/2022 currently waiting on placement this time the patient is found to be acutely psychotic he has a known history of chronic schizophrenia with acute psychosis as well as polysubstance abuse. Patient has already been found medically cleared prior to my arrival no additional needs or concerns throughout the night per Dr. Tirado. Currently trying to find placement at this time. We will continue to follow. Discussed the patient's case with Dr. Steele psychiatrist that came in the ER department to assess the patient and the patient has been managed by Dr. Steele in the past Dr. Steele believes the patient can be successfully discharged home and he is actively not having any current thoughts of suicide he does recommend initiating the patient on a higher dose of medications prior to subsequent discharge as well as provide him meds on wheels prescription through the ER prior to subsequent discharge patient is agreeable to this he can contract not to do any harm which at this time does not appear to be a threat to himself or others patient will be subsequent discharged home after he receives his medications through the hospital as well as his new dose of medications as recommended by Dr. Steele. Lab Data 03/11/22 22:45 03/11/22 22:45 Laboratory Results WBC 7.9 10^3/uL (4.0-10.0) 03/11/22 22:45 RBC 4.85 10^6/uL (4.1-5.3) 03/11/22 22:45 Hgb 14.2 g/dL (11.7-16.6) 03/11/22 22:45 Hct 41.5 % (42.0-52.0) L 03/11/22 22:45 MCV 85.6 fl (80-94) 03/11/22 22:45 MCH 29.3 pg (28.0-34.0) 03/11/22 22:45 MCHC 34.2 g/dL (30.0-36.0) 03/11/22 22:45 RDW 12.4 % (12.1-15.1) 03/11/22 22:45 Plt Count 295 10^3/cmm (130-400) 03/11/22 22:45 MPV 8.7 fL (7.4-10.4) 03/11/22 22:45 Neut % (Auto) 54.1 % 03/11/22 22:45 Lymph % (Auto) 31.1 % 03/11/22 22:45 [place] % (Auto) 9.0 % 03/11/22 22:45 Eos % (Auto) 5.0 % 03/11/22 22:45 Baso % (Auto) 0.5 % 03/11/22 22:45 Neut # (Auto) 4.26 10^3/uL (1.8-7.7) 03/11/22 22:45 Lymph # (Auto) 2.5 10^3/uL (0.8-4.8) 03/11/22 22:45 [place] # (Auto) 0.7 10^3/uL (0.2-0.9) 03/11/22 22:45 Eos # (Auto) 0.4 10^3/uL (0.0-0.8) 03/11/22 22:45 Baso # (Auto) 0.0 10^3/uL (0.0-0.1) 03/11/22 22:45 Nucleated RBC % (auto) 0 % 03/11/22 22:45 Nucleated RBCs # 0.0 /100WBC 03/11/22 22:45 Sodium 139 mmol/L (136-145) 03/11/22 22:45 Potassium 3.5 mmol/L (3.5-5.1) 03/11/22 22:45 Chloride 102 mmol/L (98-107) 03/11/22 22:45 Carbon Dioxide 27 mmol/L (22-29) 03/11/22 22:45 Anion Gap 13.5 (5-19) 03/11/22 22:45 BUN 13 mg/dL (6-20) 03/11/22 22:45 Creatinine 0.8 mg/dL (0.7-1.2) 03/11/22 22:45 GFR Calculation 118.8 mL/min (90-130) 03/11/22 22:45 Glucose 132 mg/dL (65-115) H 03/11/22 22:45 Calculated Osmolality 290 mOsm/kg (285-295) 03/11/22 22:45 Calcium 9.0 mg/dL (8.5-10.5) 03/11/22 22:45 Total Bilirubin 0.4 mg/dL (0.15-1.2) 03/11/22 22:45 AST 17 U/L (0-40) 03/11/22 22:45 ALT 17 U/L (0-41) 03/11/22 22:45 Alkaline Phosphatase 98 U/L (40-130) 03/11/22 22:45 Total Protein 6.9 g/dL (6.6-8.7) 03/11/22 22:45 Albumin 4.2 g/dL (3.5-5.2) 03/11/22 22:45 Globulin 2.7 g/dL (1.3-4.6) 03/11/22 22:45 TSH 1.02 uIU/mL (0.27-4.20) 03/11/22 22:45 Urine Color Yellow (Yellow) 03/11/22 20:46 Urine Appearance Clear (CLEAR) 03/11/22 20:46 Urine pH 5 (5-7) 03/11/22 20:46 Ur Specific [place] 1.025 (1.005-1.030) 03/11/22 20:46 Urine Protein Neg (Negative) 03/11/22 20:46 Urine Glucose (UA) Norm (Normal) 03/11/22 20:46 Urine Ketones Negative (Negative) 03/11/22 20:46 Urine Blood Neg (Negative) 03/11/22 20:46 Urine Nitrate Negative (Negative) 03/11/22 20:46 Urine Bilirubin Neg (Negative) 03/11/22 20:46 Urine Urobilinogen Neg mg/dL (Negative) 03/11/22 20:46 Ur Leukocyte Esterase Negative (Negative) 03/11/22 20:46 Salicylates < 0.3 mg/dL (3-10) L 03/11/22 22:45 Urine Opiates Screen Negative ng/mL (Negative) 03/11/22 20:46 Acetaminophen < 5.0 ug/mL (10-30) L 03/11/22 22:45 Ur Barbiturates Screen Negative ng/mL (Negative) 03/11/22 20:46 Ur Phencyclidine Scrn Negative ng/mL (Negative) 03/11/22 20:46 Ur Amphetamines Screen Positive ng/mL (Negative) H 03/11/22 20:46 U Benzodiazepines Scrn Positive ng/mL (Negative) H 03/11/22 20:46 Urine Cocaine Screen Negative ng/mL (Negative) 03/11/22 20:46 U Marijuana (THC) Screen Positive ng/mL (Negative) H 03/11/22 20:46 Ethyl Alcohol < 10 mg/dL (0-10) 03/11/22 22:45 Influenza Type A Ag negative (Negative) 03/11/22 22:45 Influenza Type B Ag negative (Negative) 03/11/22 22:45 SARS-CoV-2 Ag (Rapid) negative (Negative) 03/11/22 22:45 Discharge Plan Discharge Patient Disposition: Home Clinical Impression: Acute psychosis, Chronic schizophrenia, Methamphetamine abuse Condition: Stable Prescriptions: Continued benztropine 1 mg Tablet 1 mg PO BID 30 Days Qty: 60 1RF Changed aripiprazole 10 mg Tablet 10 mg PO DAILY 30 Days Qty: 30 1RF Discharge Orders: Discharge ED (Routine); Ordered 03/12/22 Ordered By: Dewayne Stone Discharge Diet: Advance as tolerated Discharge Activity: Increase activity as tolerated Patient Instructions: Opioid Safety, Pain Management Activity Restrictions/Additional Instructions: Please follow-up as needed with your primary care doctor in the next 1 week, please take your medications as prescribed. Please return the interim if any of your symptoms persist or worse. Coding Level of Care Code ED Termite Renewal Inspector for Farideh Fwd Exam Comprehensive Medical Decision Making Moderate Complexity
[2022-03-11 22:50] VITALS: BP 112/78; PULSE 101; RESP 14; TEMP 36.6; O2SAT 94
[2022-03-11 22:53] LABS: Basophils % 0.5 %; Eosinophils # 0.4 10^3/uL (0.0-0.8); Hematocrit 41.5 % (42.0-52.0); Hemoglobin 14.2 g/dL (11.7-16.6); Lymphocytes # 2.5 10^3/uL (0.8-4.8); Lymphocytes % 31.1 %; Mean Corpuscular HGB Conc 34.2 g/dL (30.0-36.0); Mean Corpuscular Hemoglobin 29.3 pg (28.0-34.0); Mean Corpuscular Volume 85.6 fl (80-94); Mean Platelet Volume 8.7 fL (7.4-10.4); Monocytes # 0.7 10^3/uL (0.2-0.9); Neutrophils # 4.26 10^3/uL (1.8-7.7); Neutrophils % 54.1 %; Nucleated Red Blood Cells % 0 %; Platelet Count 295 10^3/cmm (130-400); Red Blood Count 4.85 10^6/uL (4.1-5.3); Red Cell Distribution Width 12.4 % (12.1-15.1); White Blood Count 7.9 10^3/uL (4.0-10.0)
--- NOTE | 2022-03-11 23:06 | ECG_ITS ---
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 Measurements Intervals [place] Rate: 104 P: 76 [place]: 160 QRS: 70 QRSD: 111 T: 0 QT: 345 QTc: 454 Interpretive Statements SINUS TACHYCARDIA WITH OCCASIONAL VENTRICULAR PREMATURE COMPLEXES INDETERMINATE AXIS MODERATE INTRAVENTRICULAR CONDUCTION DELAY [110+ ms QRS DURATION] NONSPECIFIC T-WAVE ABNORMALITY ABNORMAL RHYTHM ECG INTERPRETATION BASED ON A DEFAULT AGE OF 40 YEARS Compared to ECG 10/05/2020 01:03:10 Ventricular premature complex(es) now present Indeterminate axis now present Intraventricular conduction delay now present Sinus rhythm no longer present T-wave abnormality still present Electronically Signed On 03-12-2022 16:41:[address] by Mike Monique M.D. [email or web address] [email or web address]/store/[id number] [email or web address]
[2022-03-11 23:10] VITALS: BP 101/59; PULSE 98; RESP 18; O2SAT 95
[2022-03-11 23:13] LABS: SARS Covid-2 Antigen negative (Negative)
[2022-03-11 23:15] VITALS: BP 116/60; PULSE 94; RESP 18; O2SAT 95
[2022-03-11 23:16] LABS: Influenza A by IFA negative (Negative); Influenza B by IFA negative (Negative)
[2022-03-11 23:24] LABS: Acetaminophen < 5.0 ug/mL (10-30); Alanine Aminotransferase 17 U/L (0-41); Albumin Level 4.2 g/dL (3.5-5.2); Alcohol Level < 10 mg/dL (0-10); Alkaline Phosphatase 98 U/L (40-130); Anion Gap 13.5 (5-19); Aspartate Amino Transferase 17 U/L (0-40); Blood Urea Nitrogen 13 mg/dL (6-20); Carbon Dioxide 27 mmol/L (22-29); Chloride 102 mmol/L (98-107); Globulin 2.7 g/dL (1.3-4.6); Glomerular Filtration Rate 118.8 mL/min (90-130); Glucose 132 mg/dL (65-115); Osmolality Calculated 290 mOsm/kg (285-295); Potassium 3.5 mmol/L (3.5-5.1); Salicylate < 0.3 mg/dL (3-10); Sodium 139 mmol/L (136-145); Thyroid Stimulating Hormone 1.02 uIU/mL (0.27-4.20); Total Bilirubin 0.4 mg/dL (0.15-1.2); Total Protein 6.9 g/dL (6.6-8.7)
[2022-03-11 23:52] VITALS: BP 112/61; PULSE 87; RESP 18; O2SAT 95
[2022-03-12] VITALS (8 sets, daily range): BP systolic 95–113; BP diastolic 51–77; PULSE 58–88; RESP 16–18; O2SAT 95–100
[2022-03-12] MEDS: acetaminophen 500 mg Tablet 1000 MG PO (09:14)
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
== END 2022-03-12 12:53 | disposition home or self-care (01) ==
PROVIDERS: Family Medicine; Emergency Provider Emergency Medicine
DX: F23 Brief psychotic disorder (principal); F20.9 Schizophrenia, unspecified; F15.10 Other stimulant abuse, uncomplicated; Z20.822 Contact with and (suspected) exposure to COVID-19; F17.210 Nicotine dependence, cigarettes, uncomplicated
CPT/HCPCS: 80053; 80306; 80307; 81003; 84443; 85025; 87426; 87804; 93005; 96372; 99285; J2060; J3486

== ENCOUNTER 2022-03-13 17:38 | Emergency (ER) | payer MEDICAID, SELFPAY ==
[2022-03-13 17:51] VITALS: BP 125/74; PULSE 95; RESP 16; TEMP 36.6; O2SAT 99; BMI 22.1
== END 2022-03-13 19:37 | disposition left against medical advice (07) ==
PROVIDERS: Emergency Provider Family Medicine
DX: Z53.21 Procedure and treatment not carried out due to patient leaving prior to being seen by health care provider (principal)